=== PATIENT | female | born 1935 | race Caucasian/White ===

== ENCOUNTER → 2017-01-27 | Outpatient (CLI) | payer BC ==
[~2017-01-27] MED LIST: AMLO-110 PO; ASPI81TA28 PO; ATOR10TA82 PO; CARV12.52 PO; CITA40TA12 PO; CLOP1TAB15 PO; CPR500 PO; CYAN500T13 PO; DIPH-416 PO; LEVO100T7 PO; LSN20 PO; MAGN400T6 PO; MCRK20 PO; MTR500 PO; NTRGSL/4 UT; PANT40TA PO; TEMA15CA4 PO
== END | disposition home or self-care (01) ==
LOC: C.LABSPEC 12:10
PROVIDERS: ATTEND Physician Assistant
DX: R35.0 Frequency of micturition (principal)

== ENCOUNTER → 2017-02-02 | Outpatient (CLI) | payer BC ==
[2017-02-02 13:55] LABS: URINE APPEARANCE CLEAR (CLEAR); URINE BILIRUBIN NEG (NEG); URINE COLOR YELLOW; URINE EPITHELIAL CELL AUTO >30 /lpf (0-5); URINE NITRITE NEG (NEG); URINE SPECIFIC GRAVITY 1.014 (1.000-1.030); UROBILINOGEN NEG (NEG); ZZUR CULT IF INDIC CLEAN CATCH YES
[2017-02-02 14:10] LABS: MANUAL MICROSCOPIC REQUIRED? NO; REVIEW REQ? YES
== END | disposition home or self-care (01) ==
LOC: C.LABSPEC 11:55
PROVIDERS: ATTEND Physician Assistant
DX: N39.0 Urinary tract infection, site not specified (principal)

== ENCOUNTER → 2017-09-18 | Outpatient (CLI) | payer BC ==
[2017-09-18 18:00] LABS: BASO % 0.9 %; BASO ABS # 0.07 K/uL (0-0.2); COMPLETE YES; EOS % 2.8 %; HEMATOCRIT 33.4 % (37-47); IG% 0.1 %; LYMPH % 31.1 %; LYMPH ABS # 2.41 K/uL (1.2-3.4); MEAN CELL VOLUME 86.3 fL (80-100); MEAN CORPUSCULAR HEMOGLOBIN 27.9 pg (25-34); MEAN CORPUSCULAR HGB CONC 32.3 g/dl (32-36); MEAN PLATELET VOLUME 10.7 fL (7.4-10.4); MONO % 10.1 %; PLATELET COUNT 312 K/uL (130-400); RED BLOOD COUNT 3.87 M/uL (4.2-5.4); WHITE BLOOD COUNT 7.75 K/uL (4.8-10.8)
[2017-09-18 18:22] LABS: BLOOD UREA NITROGEN 25 mg/dl (7-18); BUN/CREATININE RATIO 16.3 (10-20); CALCIUM 8.7 mg/dl (8.5-10.1); CARBON DIOXIDE 27 mmol/L (21-32); CHLORIDE 102 mmol/L (98-107); CREATININE 1.53 mg/dl (0.60-1.20); GLUCOSE 87 mg/dl (70-99); POTASSIUM 3.9 mmol/L (3.5-5.1); SODIUM 138 mmol/L (136-145)
== END | disposition home or self-care (01) ==
LOC: C.LAB1850 16:43
PROVIDERS: ATTEND Internal Medicine
DX: I10 Essential (primary) hypertension (principal); D64.9 Anemia, unspecified

== ENCOUNTER → 2017-10-24 | Outpatient (CLI) | payer BC ==
[~2017-10-24] MED LIST changes: -AMLO-110 PO; +AMLO5TAB3 PO; +LISI-726 PO; -LSN20 PO
[2017-10-24 16:33] LABS: HEMATOCRIT 34.8 % (37-47); HEMOGLOBIN 11.3 g/dL (12.0-16.0); MEAN CELL VOLUME 85.9 fL (80-100); MEAN CORPUSCULAR HEMOGLOBIN 27.9 pg (25-34); MEAN CORPUSCULAR HGB CONC 32.5 g/dl (32-36); MEAN PLATELET VOLUME 10.1 fL (7.4-10.4); PLATELET COUNT 352 K/uL (130-400); RED CELL DISTRIBUTION WIDTH CV 15.4 % (11.5-14.5); RED CELL DISTRIBUTION WIDTH SD 48.5 fL (36.4-46.3); WHITE BLOOD COUNT 6.77 K/uL (4.8-10.8)
[2017-10-24 19:40] LABS: BLOOD UREA NITROGEN 33 mg/dl (7-18); CALCIUM 8.8 mg/dl (8.5-10.1); CARBON DIOXIDE 26 mmol/L (21-32); CREATININE 2.21 mg/dl (0.60-1.20); GLUCOSE 94 mg/dl (70-99); POTASSIUM 4.4 mmol/L (3.5-5.1); SODIUM 140 mmol/L (136-145)
== END | disposition home or self-care (01) ==
LOC: C.LAB1850 14:50
PROVIDERS: ATTEND Internal Medicine
DX: E05.90 Thyrotoxicosis, unspecified without thyrotoxic crisis or storm (principal); I10 Essential (primary) hypertension; D64.9 Anemia, unspecified

== ENCOUNTER → 2017-11-14 | Outpatient (CLI) | payer BC ==
[~2017-11-14] MED LIST changes: +AMLO-110 PO; -AMLO5TAB3 PO; -LISI-726 PO; +LSN20 PO
[2017-11-14 16:39] LABS: BLOOD UREA NITROGEN 29 mg/dl (7-18); CALCIUM 8.9 mg/dl (8.5-10.1); CARBON DIOXIDE 27 mmol/L (21-32); CREATININE 1.88 mg/dl (0.60-1.20); GLUCOSE 111 mg/dl (70-99); POTASSIUM 4.5 mmol/L (3.5-5.1); SODIUM 137 mmol/L (136-145)
== END | disposition home or self-care (01) ==
LOC: C.LAB1850 15:07
PROVIDERS: ATTEND Internal Medicine
DX: E05.90 Thyrotoxicosis, unspecified without thyrotoxic crisis or storm (principal)

== ENCOUNTER → 2017-11-15 | Outpatient (CLI) | payer BC ==
[2017-11-15 13:26] LABS: HEMATOCRIT 34.4 % (37-47); HEMOGLOBIN 11.2 g/dL (12.0-16.0); MEAN CELL VOLUME 85.4 fL (80-100); MEAN CORPUSCULAR HEMOGLOBIN 27.8 pg (25-34); MEAN CORPUSCULAR HGB CONC 32.6 g/dl (32-36); MEAN PLATELET VOLUME 10.4 fL (7.4-10.4); PLATELET COUNT 320 K/uL (130-400); RED CELL DISTRIBUTION WIDTH CV 15.2 % (11.5-14.5); RED CELL DISTRIBUTION WIDTH SD 47.4 fL (36.4-46.3); WHITE BLOOD COUNT 6.18 K/uL (4.8-10.8)
== END | disposition home or self-care (01) ==
LOC: C.LABBC 11:02
PROVIDERS: ATTEND Internal Medicine
DX: N39.0 Urinary tract infection, site not specified (principal); N20.0 Calculus of kidney; D64.9 Anemia, unspecified

== ENCOUNTER 2018-01-08 15:25 | Emergency (ER) | payer BC ==
[~2018-01-08] VITALS: Ht 152.4 cm; Wt 48.9 kg
[2018-01-08 15:37] VITALS: Ht 152.4 cm; Wt 48.9 kg
[2018-01-08 16:04] VITALS: O2SAT 98
[2018-01-08 16:12] LABS: BASO % 0.9 %; BASO ABS # 0.07 K/uL (0-0.2); EOS % 2.5 %; HEMATOCRIT 38.1 % (37-47); HEMOGLOBIN 12.5 g/dL (12.0-16.0); IG# 0.01 K/uL (0.00-0.02); LYMPH % 28.9 %; LYMPH ABS # 2.27 K/uL (1.2-3.4); MEAN CELL VOLUME 83.9 fL (80-100); MEAN CORPUSCULAR HEMOGLOBIN 27.5 pg (25-34); MEAN CORPUSCULAR HGB CONC 32.8 g/dl (32-36); MEAN PLATELET VOLUME 10.2 fL (7.4-10.4); MONO % 10.2 %; NEUT % 57.4 %; NEUT ABS # 4.51 K/uL (1.4-6.5); PLATELET COUNT 348 K/uL (130-400); RED CELL DISTRIBUTION WIDTH CV 14.9 % (11.5-14.5); RED CELL DISTRIBUTION WIDTH SD 45.7 fL (36.4-46.3); WHITE BLOOD COUNT 7.86 K/uL (4.8-10.8)
[2018-01-08 16:22] LABS: PTT PATIENT 23.1 SECONDS (21.0-31.0)
--- NOTE | 2018-01-08 16:24 | DIAGNOSTIC IMAGING REPORT ---
CHEST ONE VIEW PORTABLE CLINICAL HISTORY: Weakness COMPARISON STUDY: 07/28/2016 FINDINGS: The heart is normal in size. There is a left subclavian dual-chamber central venous pacemaker present. There is no failure. There is a nonspecific 11 mm left midlung zone opacity. Radiographic follow-up is recommended. There are no pleural effusions. There is no lobar consolidation.[ IMPRESSION: 1. Nonspecific 11 mm left midlung zone opacity. Further workup is advocated. Electronically signed by: Tom Rene M.D. 01/08/2018 4:23 PM Dictated Date/Time: 01/08/2018 4:21 PM
[2018-01-08 16:32] LABS: ALBUMIN 4.3 gm/dl (3.4-5.0); ALT/SGPT 17 U/L (12-78); BLOOD UREA NITROGEN 23 mg/dl (7-18); CALCIUM 9.3 mg/dl (8.5-10.1); CARBON DIOXIDE 27 mmol/L (21-32); GLUCOSE 97 mg/dl (70-99); LIPASE 135 U/L (73-393); POTASSIUM 3.9 mmol/L (3.5-5.1); SODIUM 138 mmol/L (136-145)
[2018-01-08 16:41] LABS: ALKALINE PHOSPHATASE 111 U/L (45-117); AST/SGOT 19 U/L (15-37); CKMB 0.6 ng/ml (0.5-3.6); TOTAL PROTEIN 8.1 gm/dl (6.4-8.2)
--- NOTE | 2018-01-08 18:02 | DIAGNOSTIC IMAGING REPORT ---
CT HEAD WITHOUT CONTRAST (CT) CLINICAL HISTORY: Dizziness, hypertension. COMPARISON STUDY: No previous studies for comparison. TECHNIQUE: Axial CT of the brain is performed from the vertex to the skull base. IV contrast was not administered for this examination. A dose lowering technique was utilized adhering to the principles of ALARA. CT DOSE: 638.56 mGycm FINDINGS: No intra or extra-axial mass lesions are visualized. There is no CT evidence of acute cortical infarction. There is no evidence of midline shift. There is no acute hemorrhage. No calvarial fractures are visualized. There are patchy white matter hypodensities likely on a small vessel basis. There is evidence of a prior left basal ganglia infarct with extension to the left centrum semiovale. There is no evidence of pathologic ventricular dilatation. There is no evidence of acute sinusitis IMPRESSION: 1. Evidence for prior left basal ganglia infarct with extension to the left centrum semiovale 2. No evidence of intracranial mass. No evidence of acute hemorrhage. Electronically signed by: Tom Rene M.D. 01/08/2018 6:01 PM Dictated Date/Time: 01/08/2018 5:59 PM
--- NOTE | 2018-01-08 18:15 | DIAGNOSTIC IMAGING REPORT ---
(CHEST) THORAX WITHOUT CT DOSE: 574.94 mGycm CLINICAL HISTORY: 82 years-old Female with dizziness, HTN, L lung opacity on cxr. Acute dizziness. 11 mm left midlung opacity described on chest radiograph of same day. TECHNIQUE: Multiaxial CT images of the chest were performed without contrast. A dose lowering technique was utilized adhering to the principles of ALARA. COMPARISON: Chest radiograph of same day, CT abdomen and pelvis 07/17/2016 and 08/19/2016. FINDINGS: Heart is normal in size without pericardial effusion. Left pectoral pacer is noted with leads overlying the right atrium and right ventricle. Coronary arterial disease. Calcifications are also noted within the aortic annulus. Extensive calcification of the thoracic aorta. There is fusiform dilation of the ascending thoracic aorta beginning distal to the sinotubular junction, 4.1 x 4.0 cm in AP and transverse dimension. Additionally, there is mild dilation of the main pulmonary artery, 3.1 cm which may reflect pulmonary arterial hypertension within the appropriate clinical setting. No dominant thyroid nodule. Mildly prominent 8 mm subcarinal lymph node is nonspecific. No pathologic adenopathy. The lungs are hyperinflated without pneumothorax or pleural effusion. Moderate left Bochdalek hernia. The previously described focal opacity of the left midlung correlates with a 2.2 x 0.5 cm linear pleural-based consolidation of the left lower lobe, image 164 series 4 suggesting an area of pleural-parenchymal scarring. Additional areas of pleural-parenchymal scarring or atelectasis involves the inferior segment lingula and right middle lobe. Multifocal tree-in-bud nodules are again noted within the lungs bilaterally within a bibasilar predominant distribution, improved from comparison CT abdomen and pelvis studies suggesting infectious or inflammatory bronchiolitis. There is a 5 mm nodule of the lateral basal segment left lower lobe, image 192 of series 4. There is a 5 mm solid nodule of the right upper lobe, image 92 series 4. 5 mm nodule of the right middle lobe is also seen. Thin-walled 12 mm cyst is seen within the right upper lobe. There are calcifications of the tracheobronchial tree. No lobar airspace consolidation. IVC filter is noted within an infrarenal location. Low attenuating lesions of the kidneys bilaterally suggest renal cysts. Punctate nonobstructing calculus of the superior pole left kidney. Soft tissues are unremarkable. Remote appearing compression deformity of the L1 vertebral body with prior kyphoplasty at T12.. Partially imaged fusion hardware of the lumbar spine. IMPRESSION: 1. Focal opacity of the left midlung correlates with a 2.2 cm linear pleural-based consolidative density of the left lower lobe suggesting an area of pleural-parenchymal scarring. 2. Innumerable tree-in-bud nodules throughout the bilateral lungs in a bibasilar predominant distribution appear similar to mildly improved from comparison CT abdomen and pelvis 08/19/2016 compatible with infectious or inflammatory bronchiolitis. 3. Scattered pulmonary nodules are noted measuring up to 5 mm, likely on an infectious or inflammatory basis. 4. No lobar airspace consolidation to suggest pneumonia. 5. Mild fusiform dilation of the ascending thoracic aorta, 4.1 x 4.0 cm. Please refer to below summary of Fleischner criteria recommendations for follow-up of incidental CT nodules (Steve Diamond, Guidelines for management of small pulmonary nodules detected on CT scans: A statement from the Fleischner Society, Radiology 237: [id number].) SOLID NODULES Multiple nodules size: <6 mm * Low risk patients: no routine follow-up * high risk patients: optional CT at 12 months Note: newly detected indeterminate nodule in persons 35 years of age or older. * Low risk patients: minimal or absent history of smoking and/or other known risk factors * high risk patients: history of smoking or of other known risk factors (e.g. first degree relative with lung cancer, or exposure to asbestos, radon, uranium) * if a nodule up to 8 mm is partly solid or is ground glass further follow-up is required after 24 months to exclude possible slow growing adenocarcinoma ([place]) The above report was generated using voice recognition software. It may contain grammatical, syntax or spelling errors. Electronically signed by: Watson Correia M.D. 01/08/2018 6:13 PM Dictated Date/Time: 01/08/2018 6:02 PM
--- NOTE | 2018-01-08 19:26 | EMERGENCY ROOM VISIT NOTE ---
History Report prepared by Riley: Kishore Gilmore Under the Supervision of: Dr. Bharath Mc M.D. First contact with patient: 15:45 Chief Complaint: HYPERTENSION Stated Complaint: HIGH BP 188/? AND LOW 80/40 History of Present Illness The patient is an 82 year old female who presents to the Emergency Room with complaints of fluctuating blood pressure for the past week. The patient states that her blood pressure has gotten up to 180 and has gone down to 80. She reports that it has been high today. She states that she has been having a headache, nausea, dizziness, and shortness of breath. She notes that she gets weak when her blood pressure goes low. The patient states that her blood pressure is better with laying down and worse with walking around and exertion. She reports that she called her PCP this morning, and they told her to come to the ED for evaluation. The patient notes that she has been having some chills, and her appetite has not been very good recently. She has a history of a pacemaker placement, and she states that she has had a stroke 5-6 years ago. Pt denies LOC, fevers, cough, diaphoresis, visual changes, neck pain, chest pain, vomiting, abdominal pain, back pain, arm pain, leg pain, melena, hematochezia, urinary symptoms, numbness, lymphadenopathy, rash, or other complaints. Source of History: patient Onset: the past week Quality: other (fluctuating blood pressure) Timing: other (fluctuating) Modifying Factors (Worsening): exertion, other (walking around) Modifying Factors (Relieving): other (laying down) Associated Symptoms: + chills, + headache, + SOB, + nausea Note: Associated symptoms: Dizziness and appetite has not been very good recently Review of Systems See HPI for pertinent positives and negatives. A total of ten systems were reviewed and were otherwise negative. Past Medical & Surgical Medical Problems: (1) A-fib (2) Abdominal pain (3) ALBERTA (acute kidney injury) (4) Crohn's disease (5) Hypertension (6) Stroke Social History Smoking Status: Never Smoker Alcohol Use: occasionally Drug Use: none Marital Status: Housing Status: lives with family Occupation Status: retired Current/Historical Medications Scheduled Amlodipine (Norvasc), 5 MG PO QAM Aspirin (Aspirin Ec), 81 MG PO QAM Atorvastatin (Lipitor), 10 MG PO QPM Carvedilol (Coreg), 12.5 MG PO BIDM Ciprofloxacin (Ciprofloxacin HCl), 500 MG PO DAILY Citalopram Hydrobromide (Celexa), 40 MG PO QAM Clopidogrel (Plavix), 75 MG PO QAM Cyanocobalamin (Vitamin B12 500MCG), 500 MCG PO DAILY Levothyroxine Sodium (Levothyroxine Sodium), 100 MCG PO QAM Lisinopril (Lisinopril), 20 MG PO QAM Magnesium Oxide (Mag-Ox), 400 MG PO QAM Pantoprazole (Protonix), 40 MG PO QAM Potassium Chloride (Klor-Con M20), 20 MEQ PO QAM Scheduled PRN Diphenoxylate/Atropine (Lomotil), 1 TAB PO DIRECTED PRN for Diarrhea Nitroglycerin (Nitrostat), 0.4 MG UT PRN PRN for Chest Pain Temazepam (Restoril), 15 MG PO HS PRN for Sleep Allergies Coded Allergies: Sulfa Antibiotics (Unverified Allergy, Unknown, ., 01/08/18) Unclassified Drugs (Verified Allergy, Unknown, ANESTHESIA, 07/17/16) Physical Exam Vital Signs Date Time Temp Pulse Resp B/P (MAP) Pulse Ox O2 Delivery O2 Flow Rate FiO2 01/08/18 20:08 36.3 89 22 160/86 95 01/08/18 19:26 160/86 95 Room Air 01/08/18 18:43 77 171/83 76 166/7 89 145/72 01/08/18 17:43 76 01/08/18 17:23 70 22 165/74 95 Room Air 01/08/18 16:05 70 22 180/154 99 Room Air 01/08/18 16:04 98 Room Air 01/08/18 15:37 36.3 79 20 174/96 96 Room Air Physical Exam GENERAL: Awake, alert, uncomfortable-appearing, in no distress HENT: Normocephalic, atraumatic. Oropharynx unremarkable. EYES: Normal conjunctiva. Sclera non-icteric. NECK: Supple. No nuchal rigidity. FROM. No masses. RESPIRATORY: Clear to auscultation. No wheezes. No rales. Normal respiratory effort. CARDIAC: Systolic ejection murmur. Normal rate. Normal rhythm. No rubs. Extremities warm and well perfused. Pulses equal. No JVD. GI: Soft, non-distended. No tenderness to palpation. No rebound or guarding. No masses. RECTAL: Deferred. MUSCULOSKELETAL: Atraumatic. Chest examination reveals no tenderness. The back is symmetrical on inspection without obvious abnormality. There is no CVA tenderness to palpation. No joint edema. LOWER EXTREMITIES: Calves are equal size bilaterally and non-tender. No edema. No discoloration. NEURO: Normal sensorium. No sensory or motor deficits noted. SKIN: No rash or jaundice noted. Medical Decision & Procedures ER Provider Diagnostic Interpretation: Radiology results as stated below per my review and radiologist interpretation: CHEST ONE VIEW PORTABLE CLINICAL HISTORY: Weakness COMPARISON STUDY: 07/28/2016 FINDINGS: The heart is normal in size. There is a left subclavian dual-chamber central venous pacemaker present. There is no failure. There is a nonspecific 11 mm left midlung zone opacity. Radiographic follow-up is recommended. There are no pleural effusions. There is no lobar consolidation.[ IMPRESSION: 1. Nonspecific 11 mm left midlung zone opacity. Further workup is advocated. Electronically signed by: Tom Rene M.D. 01/08/2018 4:23 PM Dictated Date/Time: 01/08/2018 4:[address] HEAD WITHOUT CONTRAST (CT) CLINICAL HISTORY: Dizziness, hypertension. COMPARISON STUDY: No previous studies for comparison. TECHNIQUE: Axial CT of the brain is performed from the vertex to the skull base. IV contrast was not administered for this examination. A dose lowering technique was utilized adhering to the principles of ALARA. CT DOSE: 638.56 mGycm FINDINGS: No intra or extra-axial mass lesions are visualized. There is no CT evidence of acute cortical infarction. There is no evidence of midline shift. There is no acute hemorrhage. No calvarial fractures are visualized. There are patchy white matter hypodensities likely on a small vessel basis. There is evidence of a prior left basal ganglia infarct with extension to the left centrum semiovale. There is no evidence of pathologic ventricular dilatation. There is no evidence of acute sinusitis IMPRESSION: 1. Evidence for prior left basal ganglia infarct with extension to the left centrum semiovale 2. No evidence of intracranial mass. No evidence of acute hemorrhage. Electronically signed by: Tom Rene M.D. 01/08/2018 6:01 PM Dictated Date/Time: 01/08/2018 5:59 PM (CHEST) THORAX WITHOUT CT DOSE: 574.94 mGycm CLINICAL HISTORY: 82 years-old Female with dizziness, HTN, L lung opacity on cxr. Acute dizziness. 11 mm left midlung opacity described on chest radiograph of same day. TECHNIQUE: Multiaxial CT images of the chest were performed without contrast. A dose lowering technique was utilized adhering to the principles of ALARA. COMPARISON: Chest radiograph of same day, CT abdomen and pelvis 07/17/2016 and 08/19/2016. FINDINGS: Heart is normal in size without pericardial effusion. Left pectoral pacer is noted with leads overlying the right atrium and right ventricle. Coronary arterial disease. Calcifications are also noted within the aortic annulus. Extensive calcification of the thoracic aorta. There is fusiform dilation of the ascending thoracic aorta beginning distal to the sinotubular junction, 4.1 x 4.0 cm in AP and transverse dimension. Additionally, there is mild dilation of the main pulmonary artery, 3.1 cm which may reflect pulmonary arterial hypertension within the appropriate clinical setting. No dominant thyroid nodule. Mildly prominent 8 mm subcarinal lymph node is nonspecific. No pathologic adenopathy. The lungs are hyperinflated without pneumothorax or pleural effusion. Moderate left Bochdalek hernia. The previously described focal opacity of the left midlung correlates with a 2.2 x 0.5 cm linear pleural-based consolidation of the left lower lobe, image 164 series 4 suggesting an area of pleural-parenchymal scarring. Additional areas of pleural-parenchymal scarring or atelectasis involves the inferior segment lingula and right middle lobe. Multifocal tree-in-bud nodules are again noted within the lungs bilaterally within a bibasilar predominant distribution, improved from comparison CT abdomen and pelvis studies suggesting infectious or inflammatory bronchiolitis. There is a 5 mm nodule of the lateral basal segment left lower lobe, image 192 of series 4. There is a 5 mm solid nodule of the right upper lobe, image 92 series 4. 5 mm nodule of the right middle lobe is also seen. Thin-walled 12 mm cyst is seen within the right upper lobe. There are calcifications of the tracheobronchial tree. No lobar airspace consolidation. IVC filter is noted within an infrarenal location. Low attenuating lesions of the kidneys bilaterally suggest renal cysts. Punctate nonobstructing calculus of the superior pole left kidney. Soft tissues are unremarkable. Remote appearing compression deformity of the L1 vertebral body with prior kyphoplasty at T12.. Partially imaged fusion hardware of the lumbar spine. IMPRESSION: 1. Focal opacity of the left midlung correlates with a 2.2 cm linear pleural-based consolidative density of the left lower lobe suggesting an area of pleural-parenchymal scarring. 2. Innumerable tree-in-bud nodules throughout the bilateral lungs in a bibasilar predominant distribution appear similar to mildly improved from comparison CT abdomen and pelvis 08/19/2016 compatible with infectious or inflammatory bronchiolitis. 3. Scattered pulmonary nodules are noted measuring up to 5 mm, likely on an infectious or inflammatory basis. 4. No lobar airspace consolidation to suggest pneumonia. 5. Mild fusiform dilation of the ascending thoracic aorta, 4.1 x 4.0 cm. Please refer to below summary of Fleischner criteria recommendations for follow-up of incidental CT nodules (Steve Diamond, Guidelines for management of small pulmonary nodules detected on CT scans: A statement from the Fleischner Society, Radiology 237: [phone].) SOLID NODULES Multiple nodules size: <6 mm * Low risk patients: no routine follow-up * high risk patients: optional CT at 12 months Note: newly detected indeterminate nodule in persons 35 years of age or older. * Low risk patients: minimal or absent history of smoking and/or other known risk factors * high risk patients: history of smoking or of other known risk factors (e.g. first degree relative with lung cancer, or exposure to asbestos, radon, uranium) * if a nodule up to 8 mm is partly solid or is ground glass further follow-up is required after 24 months to exclude possible slow growing adenocarcinoma (EKATERINA) The above report was generated using voice recognition software. It may contain grammatical, syntax or spelling errors. Electronically signed by: Watson Correia M.D. 01/08/2018 6:13 PM Dictated Date/Time: 01/08/2018 6:02 PM Laboratory Results 01/08/18 15:50 Red Blood Count 4.54, Mean Corpuscular Volume 83.9, Mean Corpuscular Hemoglobin 27.5, Mean Corpuscular Hemoglobin Concent 32.8, Mean Platelet Volume 10.2, Neutrophils (%) (Auto) 57.4, Lymphocytes (%) (Auto) 28.9, Monocytes (%) (Auto) 10.2, Eosinophils (%) (Auto) 2.5, Basophils (%) (Auto) 0.9, Neutrophils # (Auto ) 4.51, Lymphocytes # (Auto) 2.27, Monocytes # (Auto) 0.80, Eosinophils # (Auto ) 0.20, Basophils # (Auto) 0.07 01/08/18 15:50 Test 01/08/18 15:50 01/08/18 17:00 White Blood Count 7.86 K/uL (4.8-10.8) Red Blood Count 4.54 M/uL (4.2-5.4) Hemoglobin 12.5 g/dL (12.0-16.0) Hematocrit 38.1 % (37-47) Mean Corpuscular Volume 83.9 fL (80-100) Mean Corpuscular Hemoglobin 27.5 pg (25-34) Mean Corpuscular Hemoglobin Concent 32.8 g/dl (32-36) Platelet Count 348 K/uL (130-400) Mean Platelet Volume 10.2 fL (7.4-10.4) Neutrophils (%) (Auto) 57.4 % Lymphocytes (%) (Auto) 28.9 % Monocytes (%) (Auto) 10.2 % Eosinophils (%) (Auto) 2.5 % Basophils (%) (Auto) 0.9 % Neutrophils # (Auto) 4.51 K/uL (1.4-6.5) Lymphocytes # (Auto) 2.27 K/uL (1.2-3.4) Monocytes # (Auto) 0.80 K/uL (0.11-0.59) Eosinophils # (Auto) 0.20 K/uL (0-0.5) Basophils # (Auto) 0.07 K/uL (0-0.2) RDW Standard Deviation 45.7 fL (36.4-46.3) RDW Coefficient of Variation 14.9 % (11.5-14.5) Immature Granulocyte % (Auto) 0.1 % Immature Granulocyte # (Auto) 0.01 K/uL (0.00-0.02) Prothrombin Time 10.1 SECONDS (9.0-12.0) Prothromb Time International Ratio 1.0 (0.9-1.1) Activated Partial Thromboplast Time 23.1 SECONDS (21.0-31.0) Partial Thromboplastin Ratio 0.9 Anion Gap 7.0 mmol/L (3-11) Est Creatinine Clear Calc Drug Dose 20.8 ml/min Estimated GFR () 37.2 Estimated GFR (Non- 32.1 BUN/Creatinine Ratio 15.0 (10-20) Calcium Level 9.3 mg/dl (8.5-10.1) Magnesium Level 1.9 mg/dl (1.8-2.4) Total Bilirubin 0.4 mg/dl (0.2-1) Direct Bilirubin < 0.1 mg/dl (0-0.2) Aspartate Amino Transf (AST/SGOT) 19 U/L (15-37) Alanine Aminotransferase (ALT/SGPT) 17 U/L (12-78) Alkaline Phosphatase 111 U/L (45-117) Total Creatine Kinase 56 U/L (26-192) Creatine Kinase MB 0.6 ng/ml (0.5-3.6) Creatine Kinase MB Ratio 1.1 (0-3.0) Troponin I < 0.015 ng/ml (0-0.045) Total Protein 8.1 gm/dl (6.4-8.2) Albumin 4.3 gm/dl (3.4-5.0) Lipase 135 U/L (73-393) Thyroid Stimulating Hormone (TSH) 0.126 uIu/ml (0.300-4.500) Urine Color YELLOW Urine Appearance CLEAR (CLEAR) Urine pH 7.5 (4.5-7.5) Urine Specific Fleming 1.007 (1.000-1.030) Urine Protein NEG (NEG) Urine Glucose (UA) NEG (NEG) Urine Ketones NEG (NEG) Urine Occult Blood NEG (NEG) Urine Nitrite NEG (NEG) Urine Bilirubin NEG (NEG) Urine Urobilinogen NEG (NEG) Urine Leukocyte Esterase TRACE (NEG) Urine WBC (Auto) 1-5 /hpf (0-5) Urine RBC (Auto) 0-4 /hpf (0-4) Urine Hyaline Casts (Auto) 0 /lpf (0-5) Urine Epithelial Cells (Auto) 5-10 /lpf (0-5) Urine Bacteria (Auto) NEG (NEG) Laboratory results reviewed by me ECG Per My Interpretation Indication: SOB/dyspnea Rate (beats per minute): 81 Rhythm: normal sinus Findings: Q waves (Septal), left axis deviation Comparison ECG Date: 07/17/16 Change: Non-specific T wave abnormality is resolved. ED Course 1545: The patient was evaluated in room B10. A complete history and physical exam was performed. 1728: I reevaluated the patient, and she is feeling a little better. 1934: I reevaluated the patient, and she does not want to stay in the hospital. She feels well. I advised her to follow up with her PCP tomorrow as her blood pressure was high, and as she did not have a recorded low blood pressure, she is not going to have a change in her medications. Medical Decision Prior records/ancillary studies reviewed regarding the history above. Triage Nursing notes reviewed and agree them. The patient's history was concerning for hypertension. Differential diagnosis: Etiologies such as orthostasis, medication issues, infection, electrolyte abnormality, hypertensive urgency, hypertensive emergency, benign hypertension, cardiovascular pathology, pheochromocytoma, electrolyte abnormality, renal disease, endorgan damage, as well as others were entertained. Physical examination: As above. ER treatment provided: No medication given. Patient was observed. She is not orthostatic. She is moderately hypertensive. On reassessment the patient felt better. Diagnostic interpretation by me: The electrocardiogram was negative for pathologic change. The labs revealed an unremarkable CBC and chemistry panel. Urinalysis negative. Cardiac markers negative. Imaging studies: Chest x-ray and CT scans as above Patient does not have any active pulmonary symptoms at this time. She has no cough or fever. She was referred back to her primary physician for further management. She states that both her primary physician and her compensation and benefits administrator have been managing her blood pressure medications. They have been making changes based upon her outpatient measurements. She did not have any hypotensive measurements here. She feels well. This is been going on for many days. The patient does not want to be admitted to the hospital. She wants to go home. I did offer. Since she is doing relatively well I did advise her to contact her primary physician first thing tomorrow. If there is any difficulty with follow-up she should contact the emergency department for further assistance through our behavioral health case manager. I gave my usual and customary discussion regarding this issue. By the evaluation outlined above other emergent etiologies such as those listed in the differential, as well as others, were deemed relatively unlikely. The patient was educated about the findings as listed above. All questions were answered and the patient was pleased with the treatment. Return instructions were outlined and the patient was discharged in stable condition. The patient was referred to her PCP tomorrow for follow-up for a recheck of the current condition. Medication Reconcilliation Current Medication List: was personally reviewed by me Blood Pressure Screening Patient's blood pressure: Elevated blood pressure Blood pressure disposition: Referred to PCP Impression Primary Impression: Hypertension Scribe Attestation The scribe's documentation has been prepared under my direction and personally reviewed by me in its entirety. I confirm that the note above accurately reflects all work, treatment, procedures, and medical decision making performed by me. Departure Information Dispostion Home / Self-Care Referrals Jason Pike M.D. (PCP) Forms HOME CARE DOCUMENTATION FORM, IMPORTANT VISIT INFORMATION, WORK / SCHOOL INSTRUCTIONS Patient Instructions [facility] Additional Instructions Follow-up with Dr. Pike's office tomorrow. If you are unable to get an appointment by calling his office tomorrow at 8 AM call back to the emergency department at [phone] for assistance with our case coordinator. Continue your current blood pressure medications. Return to the ER for headache, chest pain, passing out, difficulty breathing, fevers, numbness, tingling, worsening of your condition, or as needed.
[2018-01-08 20:08] VITALS: BP 160/86; PULSE 89; TEMP 36.3; O2SAT 95
== END 2018-01-08 20:09 | disposition home or self-care (01) ==
LOC: C.EDB 15:27
DX: I10 Essential (primary) hypertension (principal); Z95.0 Presence of cardiac pacemaker; Z86.73 Personal history of transient ischemic attack (TIA), and cerebral infarction without residual deficits; I48.91 Unspecified atrial fibrillation; K50.90 Crohn's disease, unspecified, without complications; Z79.82 Long term (current) use of aspirin; Z79.02 Long term (current) use of antithrombotics/antiplatelets; Z79.899 Other long term (current) drug therapy; Z88.2 Allergy status to sulfonamides; Z88.8 Allergy status to other drugs, medicaments and biological substances

== ENCOUNTER → 2018-01-12 | Outpatient (CLI) | payer BC ==
[~2018-01-12] MED LIST changes: -MTR500 PO
[2018-01-12 12:28] LABS: ALBUMIN 3.7 gm/dl (3.4-5.0); BLOOD UREA NITROGEN 20 mg/dl (7-18); CALCIUM 8.8 mg/dl (8.5-10.1); CARBON DIOXIDE 27 mmol/L (21-32); CREATININE 1.61 mg/dl (0.60-1.20); GLUCOSE 124 mg/dl (70-99); POTASSIUM 4.2 mmol/L (3.5-5.1); SODIUM 140 mmol/L (136-145)
[2018-01-12 12:39] LABS: PHOSPHORUS 3.3 mg/dl (2.5-4.9)
== END | disposition home or self-care (01) ==
LOC: C.LAB1850 10:59
PROVIDERS: ATTEND Internal Medicine Nephrology
DX: R06.02 Shortness of breath (principal); E03.9 Hypothyroidism, unspecified; I10 Essential (primary) hypertension; R79.89 Other specified abnormal findings of blood chemistry; R79.1 Abnormal coagulation profile

== ENCOUNTER → 2018-01-12 | Outpatient (CLI) | payer BC ==
--- NOTE | 2018-01-12 19:44 | DIAGNOSTIC IMAGING REPORT ---
CHEST 2 VIEWS ROUTINE CLINICAL HISTORY: 82 years-old Female presenting with ELEVATED D-DIMER. TECHNIQUE: PA and lateral views of the chest were obtained. COMPARISON: 01/08/2018. FINDINGS: Left subclavian pacer with leads to the right atrium and right ventricular apex. Atherosclerosis of the aortic arch. Cardiac silhouette normal in size. Lungs hyperinflated. No focal opacity. No large effusion or pneumothorax. Osteopenia. Kyphoplasty changes in a lower thoracic vertebral body, likely T12. Additionally, compression deformity of L1, as seen on recent CT from 01/08/2018. Partially visualized posterior lumbar fusion hardware. IVC filter. IMPRESSION: 1. No focal infiltrate. The previously noted infiltrate in the left midlung is not visualized. 2. Hyperinflation. Electronically signed by: Hitesh Lino M.D. 01/12/2018 7:43 PM Dictated Date/Time: 01/12/2018 7:40 PM
--- NOTE | 2018-01-12 19:56 | DIAGNOSTIC IMAGING REPORT ---
LUNG IMAGING VQ CLINICAL HISTORY: 82 years-old Female presenting with R06.02 SOB (shortness of breath)rule out PE High D Dimer. TECHNIQUE: Immediately following the inhalation of 33 mCi of technetium 99 M DTPA for the ventilation scan and the intravenous administration of 5.4 mCi of technetium 99 M MAA for the perfusion scan, anterior, oblique, lateral, and posterior views of the chest were obtained. Modified PIOPED II criteria were utilized for assessment. COMPARISON: Chest x-ray performed the same day. FINDINGS: Matched defect of the inferior lingula (segment 14). Matched defect of the anterior medial basal left lower lobe. Matched defect in left than 50% of posterior basal segment of the right lower lobe (segment 8). Approximately 25% matched defects in the superior segment of the left lower lobe (segment 15) and the superior segment of the right lower lobe (segment 6). Heterogeneity of ventilation matches the perfusion defects as detailed above. Radiotracer accumulation in the region of the stomach from ingestion. Reference: Modified PIOPED II criteria Normal: No perfusion defects. Very low likelihood ratio: Nonsegmental, perfusion defect < chest x-ray lesion, 1-3 small segmental defects, solitary triple matched defect (< or = 1 segment) in mid or upper lung, stripe sign, solitary large pleural effusion, > or = to 2 matched defects with regionally normal chest x-ray. High likelihood ratio: > or = 2 large mismatch segmental defects. Nondiagnostic: All other findings. IMPRESSION: Very low likelihood for pulmonary embolus. Suspected underlying chronic lung disease given the heterogeneity of parenchyma. Electronically signed by: Hitesh Lino M.D. 01/12/2018 7:55 PM Dictated Date/Time: 01/12/2018 7:47 PM
== END | disposition home or self-care (01) ==
LOC: C.NUCL 18:02
PROVIDERS: ATTEND Internal Medicine Pulmonary Disease
DX: R79.89 Other specified abnormal findings of blood chemistry (principal); R06.02 Shortness of breath; R79.1 Abnormal coagulation profile

== ENCOUNTER → 2018-06-06 | Outpatient (CLI) | payer BC ==
[~2018-06-06] MED LIST changes: -AMLO-110 PO; +AMLO5TAB3 PO; +LISI-726 PO; -LSN20 PO
[2018-06-06 10:33] LABS: HEMATOCRIT 33.8 % (37-47); MEAN CELL VOLUME 84.1 fL (80-100); MEAN CORPUSCULAR HEMOGLOBIN 27.4 pg (25-34); MEAN CORPUSCULAR HGB CONC 32.5 g/dl (32-36); MEAN PLATELET VOLUME 10.3 fL (7.4-10.4); PLATELET COUNT 303 K/uL (130-400); RED CELL DISTRIBUTION WIDTH CV 15.5 % (11.5-14.5); RED CELL DISTRIBUTION WIDTH SD 48.1 fL (36.4-46.3); WHITE BLOOD COUNT 6.03 K/uL (4.8-10.8)
[2018-06-06 10:54] LABS: BLOOD UREA NITROGEN 27 mg/dl (7-18); CALCIUM 9.1 mg/dl (8.5-10.1); CARBON DIOXIDE 27 mmol/L (21-32); CREATININE 1.44 mg/dl (0.60-1.20); GLUCOSE 89 mg/dl (70-99); POTASSIUM 3.9 mmol/L (3.5-5.1); SODIUM 140 mmol/L (136-145)
== END | disposition home or self-care (01) ==
LOC: C.LABBC 08:36
PROVIDERS: ATTEND Internal Medicine
DX: E03.9 Hypothyroidism, unspecified (principal); I10 Essential (primary) hypertension; D64.9 Anemia, unspecified

== ENCOUNTER → 2018-06-07 | Outpatient (CLI) | payer BC ==
--- NOTE | 2018-06-07 10:07 | DIAGNOSTIC IMAGING REPORT ---
CHEST 2 VIEWS ROUTINE CLINICAL HISTORY: R06.02 SOB dyspnea COMPARISON STUDY: 01/12/2018 FINDINGS: Lungs are clear. Bipolar cardiac pacemaker in good position. Diaphragms smooth. Scattered pleural plaques unchanged. IMPRESSION: No acute process. The above report was generated using voice recognition software. It may contain grammatical, syntax or spelling errors. Electronically signed by: Elias Guardado M.D. 06/07/2018 10:06 AM Dictated Date/Time: 06/07/2018 10:05 AM
== END | disposition home or self-care (01) ==
LOC: C.RAD1850 09:39
PROVIDERS: ATTEND Internal Medicine
DX: R06.02 Shortness of breath (principal)

== ENCOUNTER 2019-03-03 22:48 | Inpatient (IN) ==
[2019-03-03 23:07] LABS: Basophils # (auto) 0.01 K/uL (0-0.2); Basophils % (auto) 0.1 %; Eosinophils # (auto) 0.16 K/uL (0-0.5); Eosinophils % (auto) 1.2 %; Hematocrit (blood only) 34.4 % (37-47); Hemoglobin 11.6 g/dL (12.0-16.0); Immature Granulocytes # (auto) 0.09 K/uL (0.00-0.02); Immature Granulocytes % (auto) 0.7 %; Lymphocytes # (auto) 2.27 K/uL (1.2-3.4); Lymphocytes % (auto) 16.7 %; Mean Corpuscular Hgb Conc 33.7 g/dL (32-36); Mean Corpuscular Volume 81.1 fL (80-100); Mean Platelet Volume 9.7 fL (7.4-10.4); Monocytes # (auto) 1.54 K/uL (0.11-0.59); Monocytes % (auto) 11.3 %; Neutrophils # (auto) 9.55 K/uL (1.4-6.5); Platelet Count 326 K/uL (130-400); RDW Coefficient of Variation 16.6 % (11.5-14.5); RDW Standard Deviation 49.9 fL (36.4-46.3); Red Blood Count 4.24 M/uL (4.2-5.4); White Blood Count 13.62 K/uL (4.8-10.8)
--- NOTE | 2019-03-03 23:16 | Emergency Department Note ---
History of Present Illness General Chief complaint: Fall Stated complaint: FALL/LT. RIB PAIN History of Present Illness Maximum Pain Intensity: 6 This 84-year-old presents to the ER complaining of fall Location: Head and left lateral chest Quality: Achy Severity: Moderate Duration: Tonight Timing: Patient lost her balance and fell Context: Pain persisted and patient came in Modifying factors: better with rest; worse with activity Patient states she has been having frequent falls over the past several months. This is not new. Patient states she is getting out of her recliner lost her balance and fell onto the couch. She is trying to get up to walk her dogs. Patient denies dyspnea, abdominal pain, neck pain, loss of consciousness, numbness, tingling, localized weakness. Patient was given Tylenol and Zofran. She lives in independent living facility. She does take a baby aspirin. Home Medications Home Medications Medication Instructions Recorded Confirmed Type acetaminophen 650 mg PO BID PRN 09/29/18 03/04/19 History amlodipine 5 mg PO DAILY 09/29/18 03/04/19 History atorvastatin 10 mg PO DAILY 09/29/18 03/04/19 History carvedilol 12.5 mg PO BIDM 09/29/18 03/04/19 History citalopram 40 mg PO DAILY 09/29/18 03/04/19 History clopidogrel 75 mg PO DAILY 09/29/18 03/04/19 History cyanocobalamin (vitamin B-12) 500 mcg PO DAILY 09/29/18 09/29/18 History [Vitamin B-12] diphenoxylate-atropine 1 tab PO DIRECTED 09/29/18 09/29/18 History levothyroxine 100 mcg PO DAILY 09/29/18 09/29/18 History lisinopril 5 mg PO HS 09/29/18 09/29/18 History magnesium oxide 400 mg PO DAILY 09/29/18 09/29/18 History multivitamin 1 tab PO DAILY 09/29/18 09/29/18 History nitroglycerin [Nitrostat] 0.4 mg SUBLINGUAL DIRECTED 09/29/18 09/29/18 History trazodone 50 mg PO HS PRN 09/29/18 09/29/18 History cholecalciferol (vitamin D3) 2,000 unit PO DAILY 03/04/19 03/04/19 History [Vitamin D3] meclizine 1 - 2 tabs PO Q8 PRN 03/04/19 03/04/19 History methenamine mandelate 1 g PO HS 03/04/19 03/04/19 History pantoprazole 40 mg PO DAILY 03/04/19 03/04/19 History Allergies Allergy/AdvReac Type Severity Reaction Status Date / Time Sulfa (Sulfonamide Allergy Unknown . Unverified 01/08/18 16:41 Antibiotics) Unclassified Drugs Allergy Unknown ANESTHESIA Uncoded 07/17/16 15:34 Past Med/Surg History Medical History Stroke (Chronic) Hypertension (Chronic) A-fib (Chronic) Crohn's disease (Chronic) Family History Other Family history non-contributory Social History Preferred Language: Fijian Current Living Situation: Other Current Living Situation Comment: [facility] Feels Safe at Home: Yes Smoking Status: Never smoker Review of Systems All systems reviewed & are unremarkable except as noted in HPI & below Physical Exam Vital Signs Vital Signs - 24 hr 03/03/19 22:51 03/03/19 23:02 03/04/19 00:05 Temperature 36.6 C Temperature Source Oral Sepsis Recent Fever Within 48 Hours No Sepsis Action Taken by Nursing No Action Required Pulse Rate 94 H Pulse Rate [Right Finger] 73 Pulse Rhythm Regular Pulse Rhythm [Right Finger] Regular Pulse Strength Normal Pulse Strength [Right Finger] Normal Respiratory Rate 18 20 Respiratory Effort / Characteristics Non-Labored Spontaneous Non-Labored Spontaneous Respiratory Depth Normal Normal Respiratory Pattern Regular Blood Pressure 193/74 H Blood Pressure [Left Arm] 156/74 H Blood Pressure Mean 113 Blood Pressure Mean [Left Arm] 101 Blood Pressure Position Sitting Pulse Oximetry 93 93 94 Oxygen Delivery Method Room Air Room Air Room Air 03/04/19 01:09 Temperature Temperature Source Sepsis Recent Fever Within 48 Hours Sepsis Action Taken by Nursing Pulse Rate Pulse Rate [Right Finger] 74 Pulse Rhythm Pulse Rhythm [Right Finger] Regular Pulse Strength Pulse Strength [Right Finger] Normal Respiratory Rate 18 Respiratory Effort / Characteristics Non-Labored Spontaneous Respiratory Depth Normal Respiratory Pattern Blood Pressure Blood Pressure [Left Arm] 180/84 H Blood Pressure Mean Blood Pressure Mean [Left Arm] 116 Blood Pressure Position Pulse Oximetry 95 Oxygen Delivery Method PHYSICAL EXAM: VITALS: Vitals are noted on the nurse's note and reviewed by myself. Vital signs stable. GENERAL: Pleasant elderly female, in no acute distress, nondiaphoretic, well- developed well-nourished. SKIN: The skin was without obvious lacerations or abrasions. Capillary reflex less than 2 seconds. HEAD: Normocephalic atraumatic. EARS: External auditory canals clear, tympanic membranes pearly franco without erythema or effusion bilaterally. No hemotympanums. No marquez sign. No mastoid tenderness. EYES: Pupils equal round and reactive to light and accommodation. Conjunctivae without injection, sclerae without icterus. Extraocular movements intact. NOSE: Patent, turbinates without inflammation or discharge. No sinus tenderness. No septal hematoma or bleeding. FACE: No facial bone tenderness. Full range of motion of the jaw without tenderness. MOUTH: Mucous membranes moist. Pharynx without erythema or exudate. Uvula midline. Airway patent. Tongue does not deviate. NECK: Supple without nuchal rigidity. Cervical spine is nontender. Full range of motion of the neck without tenderness. No JVD. HEART: Regular rate and rhythm LUNGS: Clear to auscultation bilaterally without wheezes, rales or rhonchi. No retractions or accessory muscle use. Left lateral chest wall tenderness. ABDOMEN: Positive bowel sounds x 4. Normal tympanic percussion. Soft, ostomy bag right mid abdomen, nontender, without organomegaly. No guarding or rebound tenderness. MUSCULOSKELETAL: No tenderness of the thoracic or lumbar spine. No tenderness with pelvic rocking. Full range of motion without tenderness to palpation in all extremities. Strength 5/5 throughout. Peripheral pulses 2+. NEURO: Patient was alert and oriented to person place and time. Normal Mini- Mental status exam. Normal sensation to light and sharp touch. Negative Romberg and pronator drift. Cerebellar function intact. No focal neurological deficits. Course Administered Medications Discontinued Medications Ceftriaxone Sodium (Rocephin) 1,000 mg in 50 mls @ 100 mls/hr IV NOW STA Stop: 03/04/19 00:29 Last Infusion: 03/04/19 00:44 Dose: 0 mls/hr Documented by: [id number] Admin: 03/04/19 00:05 Dose: 100 mls/hr Documented by: [id number] Medical Decision Making Medical Records Attestation: I reviewed the patient's medical records. Home Medications Current Medication List: was personally reviewed by me Laboratory Data Attestation: I reviewed the patient's lab results. Result diagrams: 03/03/19 22:59 03/03/19 22:59 Lab Results 03/03/19 03/03/19 03/03/19 Range/Units 22:59 22:59 22:59 WBC 13.62 H (4.8-10.8) K/uL RBC 4.24 (4.2-5.4) M/uL Hgb 11.6 L (12.0-16.0) g/dL Hct 34.4 L (37-47) % MCV 81.1 (80-100) fL MCH 27.4 (25-34) pg MCHC 33.7 (32-36) g/dL RDW Std Deviation 49.9 H (36.4-46.3) fL RDW Coeff of Heladio 16.6 H (11.5-14.5) % Plt Count 326 (130-400) K/uL MPV 9.7 (7.4-10.4) fL Immature Gran % (Auto) 0.7 % Neut % (Auto) 70.0 % Lymph % (Auto) 16.7 % Dillingham % (Auto) 11.3 % Eos % (Auto) 1.2 % Baso % (Auto) 0.1 % Immature Gran # (Auto) 0.09 H (0.00-0.02) K/uL Neut # (Auto) 9.55 H (1.4-6.5) K/uL Lymph # (Auto) 2.27 (1.2-3.4) K/uL [place]illingham # (Auto) 1.54 H (0.11-0.59) K/uL Eos # (Auto) 0.16 (0-0.5) K/uL Baso # (Auto) 0.01 (0-0.2) K/uL Sodium 138 (136-145) mmol/L Potassium 4.1 (3.5-5.1) mmol/L Chloride 104 (98-107) mmol/L Carbon Dioxide 27 (21-32) mmol/L Anion Gap 8.0 (3-11) BUN 44 H (7-18) mg/dl Creatinine 1.89 H (0.6-1.2) mg/dl Est Cr Clr Drug Dosing Not Reportable Est GFR ( Amer) 27.8 Est GFR (Non-Af Amer) 23.9 BUN/Creatinine Ratio 23.5 H (10-20) Glucose 131 H (70-99) mg/dl Calcium 8.4 L (8.5-10.1) mg/dl Magnesium 1.4 L (1.8-2.4) mg/dl Total Bilirubin 0.4 (0.2-1) mg/dl AST 13 L (15-37) U/L ALT 22 (12-78) U/L Alkaline Phosphatase 88 (45-117) U/L Troponin I < 0.015 (0-0.045) ng/ml Total Protein 6.5 (6.4-8.2) gm/dl Albumin 3.4 (3.4-5.0) gm/dl Globulin 3.1 (2.5-4.0) gm/dl Albumin/Globulin Ratio 1.1 (0.9-2) TSH 2.080 (0.300-4.500) uIu/ml Urine Color Yellow Urine Appearance Cloudy A (Clear) Urine pH 6.0 (4.5-7.5) Ur Specific Harris 1.014 (1.000-1.030) Urine Protein Negative (Negative) Urine Glucose (UA) Negative (Negative) Urine Ketones Negative (Negative) Urine Blood Negative (Negative) Urine Nitrite Positive A (Negative) Urine Bilirubin Negative (Negative) Urine Urobilinogen Negative (Negative) Ur Leukocyte Esterase 2+ H (Negative) Urine WBC (Auto) >30 H (0-5) /hpf Urine RBC (Auto) 0-4 (0-4) /hpf U Hyaline Cast (Auto) 1-5 (0-5) /lpf U Epithel Cells (Auto) 20-30 H (0-5) /lpf Urine Bacteria (Auto) 4+ H (Negative) Imaging Data Attestation: I personally reviewed and interpreted this imaging study as follows: Blood Pressure Blood Pressure Findings: Elevated blood pressure Blood Pressure Disposition: Referred to patients primary care provider [facility] Narrative Prior records/ancillary studies reviewed and summarized above. Nursing notes reviewed. Additional history obtained from EMS. The patient's history was concerning for fall. Differential diagnosis: Etiologies such as metabolic,fracture, contusion, infection, hypo/hyperglycemia, electrolyte abnormalities, cardiac sources, intracerebral event, toxicologic, neurologic, as well as others were entertained. Physical examination: As above. ER treatment provided: IV Lock Patient declined pain meds On reassessment the patient felt better. Diagnostics interpretation by me: ECG: Normal sinus, normal intervals, left axis deviation, no acute ST-T wave changes, rate of 68. Impression normal sinus rhythm with a left axis deviation interpreted by myself The chart was completed utilizing [employer] voice recognition software. Grammatical errors, random word insertions, pronoun errors, and incomplete sentences are an occassional consequence of this system due to software limitations, ambient noise, and hardware issues. Any formal questions or concerns about the content, text, or information contained within the body of this dictation should be directly addressed to the physician construction management assistant for clarification. The labs revealed urine concerning for infection and sent for culture Creatinine 1.89. Slightly higher than baseline per chart review Leukocytosis Imaging studies: CT CHEST Without Contrast: 4.1 cm ascending aortic aneurysm Left anterior fourth and fifth rib fractures. Left lateral sixth and seventh rib fractures. Left posterior seventh rib fracture. These were not present on the prior. No pneumothorax Scattered pulmonary nodules are again seen. A 9 mm right lower lobe nodule was not seen on the prior scan and is suspicious for malignancy. Radiologist: Stuart Walker MD CT C SPINE: Negative Radiologist: Stuart Walker MD CT HEAD: No fracture or hemorrhage Radiologist: Stuart Walker MD Consultation: A consultation was placed with the hospitalist, Dr Gerardo. The case was discussed and diagnostics were reviewed. The patient was evaluated in the ER for further treatment. Exam and history seem consistent with fall with UTI and multiple rib fractures. Medicine was consulted. Patient is agreeable to treatment plan of admission. She was given Rocephin for the UTI. No recent culture was seen in chart review. Urine culture was placed. Repeat abdominal exam is benign. the daughter states that the patient is supposed to be on prophylactic antibiotics for his tory of kidney stones with UTIs but is unable to swallow the tablet and has not been taking them over the past month. They follow with [facility] urology. Daughter states she has been having increasing frequent falls this past month. Patient's vital signs are stable. She was not hypoxic. Her pain was managed with Tylenol. By the evaluation outlined above emergent etiologies such as electrolyte abnormalities, cardiac sources, intracerebral event, toxologic, neurologic, abnormalities blood glucose, metabolic, as well as others were deemed relatively unlikely. The pt informed about the findings as listed above. All questions were answered and pleased with the treatment. Case reviewed with my attending The chart was completed utilizing [employer] voice recognition software. Grammatical errors, random word insertions, pronoun errors, and incomplete sentences are an occassional consequence of this system due to software limitations, ambient noise, and hardware issues. Any formal questions or concerns about the content, text, or information contained within the body of this dictation should be directly addressed to the physician construction management assistant for clarification. Impression & Plan Multiple rib fractures, Acute UTI, Fall, Head injury Discharge Plan Visit Data Chief Complaint: Fall Stated Complaint: FALL/LT. RIB PAIN ED Provider: Mark Luo ED Midlevel Provider: Dena Gary Discharge Problem: Multiple rib fractures, Acute UTI, Fall, Head injury Patient Disposition: Admitted As Inpatient Condition: Fair Forms Stand Alone Forms: [facility] Prescriptions Prescriptions: No Action multivitamin Tablet 1 tab PO DAILY RF: 0 acetaminophen 325 mg Tablet 650 mg PO BID PRN (Reason: Pain) RF: 0 carvedilol 12.5 mg Tablet 12.5 mg PO BIDM RF: 0 citalopram 40 mg Tablet 40 mg PO DAILY RF: 0 trazodone 50 mg Tablet 50 mg PO HS PRN (Reason: Insomnia) RF: 0 atorvastatin 10 mg Tablet 10 mg PO DAILY RF: 0 diphenoxylate-atropine 2.5-0.025 mg Tablet 1 tab PO DIRECTED RF: 0 clopidogrel 75 mg Tablet 75 mg PO DAILY RF: 0 amlodipine 5 mg Tablet 5 mg PO DAILY RF: 0 levothyroxine 100 mcg Tablet 100 mcg PO DAILY RF: 0 lisinopril 10 mg Tablet 5 mg PO HS RF: 0 nitroglycerin [Nitrostat] 0.4 mg Tablet, Sublingual 0.4 mg Sublingual DIRECTED RF: 0 cyanocobalamin (vitamin B-12) [Vitamin B-12] 500 mcg Lozenge 500 mcg PO DAILY RF: 0 magnesium oxide 400 mg magnesium Tablet 400 mg PO DAILY RF: 0 Referrals Referrals: Jason Pike MD [Primary Care Provider] -
[2019-03-03 23:25] LABS: Alanine Aminotransferase 22 U/L (12-78); Albumin Level 3.4 gm/dl (3.4-5.0); Aspartate Aminotransferase 13 U/L (15-37); BUN Creatinine Ratio 23.5 (10-20); Blood Urea Nitrogen 44 mg/dl (7-18); Calcium 8.4 mg/dl (8.5-10.1); Carbon Dioxide 27 mmol/L (21-32); Chloride 104 mmol/L (98-107); Est GFR (African American) 27.8; Est GFR (Non-African American) 23.9; Glucose 131 mg/dl (70-99); Magnesium 1.4 mg/dl (1.8-2.4); Potassium 4.1 mmol/L (3.5-5.1); Sodium 138 mmol/L (136-145)
[2019-03-03 23:36] LABS: Albumin Globulin Ratio 1.1 (0.9-2); Alkaline Phosphatase 88 U/L (45-117); Bilirubin,Total 0.4 mg/dl (0.2-1); Globulin 3.1 gm/dl (2.5-4.0); Total Protein 6.5 gm/dl (6.4-8.2); Troponin I < 0.015 ng/ml (0-0.045)
[2019-03-03 23:47] LABS: Appearance Urine Cloudy (Clear); Bacteria Urine Automated 4+ (Negative); Bilirubin Urine Negative (Negative); Blood Urine Negative (Negative); Color Urine Yellow; Epithelial Cell Urine Auto 20-30 /lpf (0-5); Glucose Urine UA Negative (Negative); Ketones Urine Negative (Negative); Leukocyte Esterase Urine 2+ (Negative); Nitrite Urine Positive (Negative); Protein Urine Negative (Negative); RBC Urine Automated 0-4 /hpf (0-4); Specific Gravity Urine 1.014 (1.000-1.030); Urobilinogen Urine Negative (Negative); WBC Urine Automated >30 /hpf (0-5)
[2019-03-04] MEDS ORDERED: cefTRIAXone SODIUM 1,000 MG/50 ML BAG IV STA
--- NOTE | 2019-03-04 01:16 | Emergency Department Note ---
ED Visit Note I have personally evaluated this patient examined her and reviewed the pertinent labs and data. I have discussed the case with Cynthia Gary, the physician assistant center manager and agree with the plan. Please refer to the PA note. This patient comes in after suffering a fall her daughter says she is fallen a couple times recently. It is unclear whether she had syncope or not and she is complaining of rib pain. IV access established and blood work was obtained she was found to have a urine that suggest a UTI and she was given IV Rocephin. She is afebrile here and has no evidence to suggest sepsis. On my exam, she appears comfortable complain of rib pain with movement. She is in no respiratory distress. I talked to her daughter and the patient at length. Her abdomen is benign and she has an ostomy and old hernia but nothing acute in the abdomen exam. Her CAT scans were obtained and do show multiple rib fractures. I do think she needs to be admitted for pain management as well as further work-up for her frequent falls. .
[2019-03-04] MEDS ORDERED: MoRPHine SULFATE 2 MG/ML CARP ONE (02:18)
--- NOTE | 2019-03-04 03:24 | History & Physical Report ---
Date of Service March 04, 2019 Assessment & Plan (1) Fall: 84-year-old female was admitted on 04 Mar 2019 for multiple rib fractures s/p fall and UTI. Fall, multiple rib fractures: Fall at home. Question of preceding dizziness (a little currently) after standing and indigestion earlier in the day (resolved). Question of LOC for a few moments. No evidence of seizure activity. May have in part be due to her UTI as below. She has a home prescription for meclizine. - Multiple scans performed with overnight radiology reads. CT head and cervical spine were without acute findings. CT chest notes left anterior fourth and fifth rib fractures, left lateral sixth and seventh rib fracture, left posterior seventh rib fracture. - On arrival, afebrile, regular rhythm, hypertensive, with relatively normal room SpO2. WBC 13.6. Normal TSH. Negative troponin. EKG was NSR, rate 68. - Will provide low-dose morphine for pain control. Incentive spirometry. Check a CK as a precaution. Neurochecks for next 12 hours. Dizziness: In brief medical record review, patient was seen by ENT as recently as January 2019 for dizziness and Mnire's disease. Started on meclizine. Recommended for vestibular physical therapy. UTI: Increased urinary frequency for over 1 week. Mild suprapubic tenderness on exam. UA positive for nitrite, WBC, bacteria, but multiple epithelial cells. Urine culture sent. - Per daughter, was previously on some level of urinary antibiotic/antiseptic (? methenamine) but has not taken this for 4 to 6 weeks due to pill swallowing issues. - Brief record review notes history of right staghorn calculi and recurrent UTIs. - In ED, treated with ceftriaxone. We will continue this for now. Further radiology findings: CT chest notes 4.1 cm ascending aortic aneurysm, scattered pulmonary nodules, and a 9 mm right lower lobe nodule suspicious for malignancy. - Consulted thoracic surgery. Anemia: Admit Hb 11.6, similar to previous. - Will recheck in the morning given above trauma. Elevated creatinine: Admit Cr 1.89, with recent comparisons around 1.5. BUN 44. Unclear if she has established chronic kidney disease. - Started small amount of IVF. Will recheck in the morning. Hypomagnesemia: Admit Mg 1.4. Replaced, recheck in a.m.. She is on suppleme ntal magnesium at home, continue here as well. Ongoing medical issues: - Hypertension: BP in ED as high as 193/74. Some is stress response. Continue home amlodipine, atorvastatin, Coreg, Nitrostat as needed. --- Hold home lisinopril for mild ALBERTA. - Atrial fibrillation: History of the same, unclear duration. Has pacemaker. Continue home Plavix. - History of DVT: Right leg. - Stroke around 2010: Reported residual speech delay, swallowing issues, right- sided weakness. - Ostomy: Consequence of hemorrhoid surgery and sphincter injury. Patient is on track for prior LLQ ostomy site hernia repair with Dr. Harrison around 21May. - ? GERD: Continue home pantoprazole. - Hypothyroidism: Continue home levothyroxine. - Depression: Continue home citalopram. - Recent left knee swelling: Ortho following. Code status: Full code. Diet: Regular. DVT prophy: SCDs. Holding on chemical prophy due to acute fractures. PT/OT: Ordered. Disbo: Admit to MedSurg. (2) Multiple rib fractures: (3) Dizziness: (4) Meniere's disease: (5) Acute UTI: (6) Ascending aortic aneurysm: (7) Pulmonary nodules: (8) Anemia: (9) Elevated serum creatinine: (10) Hypomagnesemia: (11) Hypertension: (12) Atrial fibrillation: (13) History of DVT (deep vein thrombosis): (14) Stroke: (15) Hypothyroidism: (16) Depression: History of Present Illness Primary Care Provider: Jason Pike MD 84-year-old female is accompanied by her daughter who arrived to the emergency department via EMS after an unwitnessed fall in her home. Patient says that she was going to let her dog out when she stood up, thinks she got a bit dizzy, and recalls falling into the wooden armrest of her chair. She thinks that she passed out for perhaps few moments and recalls waking up on the ground, finding a phone, and calling her daughter. Her daughter then came over a couple minutes later and called EMS. Patient thinks that during her fall she struck the left side of her face but primarily landed on her left upper chest. She denies any tongue biting, loss of bowel or bladder function, or any extremity pains. - At time of H&P, patient says that her left-sided facial injury is currently not painful and not a concern of hers. She continues to have some left upper chest pain around her rib cage. She denies any overt chest pain or shortness of breath. She does have a history of a stroke in 2010 with some residual speech, swallowing difficulty, and right-sided weakness, but patient denies any current headache or acute difficulty with extremity movement. - As part of the review of systems, patient does note that she has had some increased urinary frequency over the past week. She denies any dysuria, h ematuria, or generalized abdominal pain. - She does also note that she has an ostomy and requests assistance with this. --- Past medical history includes hypertension, atrial fibrillation, DVT, CVA, hypothyroidism, depression, left knee swelling. --- Past surgical history includes cataract surgery, colostomy, ileostomy, hysterectomy, lumbar vertebral fusion, pacemaker placement, thyroid surgery, tonsillectomy. --- Social history includes denying personal tobacco use but her smoked quite a bit. Denies alcohol use. Lives alone at [facility] (daughter says this is not assisted living). Allergies Allergy/AdvReac Type Severity Reaction Status Date / Time Sulfa (Sulfonamide Allergy Unknown . Unverified 03/04/19 01:43 Antibiotics) Unclassified Drugs Allergy Unknown ANESTHESIA Uncoded 03/04/19 01:43 Home Medications Home Medications Medication Instructions Recorded Confirmed Type acetaminophen 650 mg PO BID PRN 09/29/18 03/04/19 History amlodipine 5 mg PO DAILY 09/29/18 03/04/19 History atorvastatin 10 mg PO DAILY 09/29/18 03/04/19 History carvedilol 12.5 mg PO BIDM 09/29/18 03/04/19 History citalopram 40 mg PO DAILY 09/29/18 03/04/19 History clopidogrel 75 mg PO DAILY 09/29/18 03/04/19 History cyanocobalamin (vitamin B-12) 500 mcg PO DAILY 09/29/18 03/04/19 History [Vitamin B-12] diphenoxylate-atropine 1 tab PO DIRECTED 09/29/18 03/04/19 History levothyroxine 100 mcg PO DAILY 09/29/18 03/04/19 History lisinopril 5 mg PO HS 09/29/18 03/04/19 History magnesium oxide 400 mg PO DAILY 09/29/18 03/04/19 History multivitamin 1 tab PO DAILY 09/29/18 03/04/19 History nitroglycerin [Nitrostat] 0.4 mg SUBLINGUAL DIRECTED PRN 09/29/18 03/04/19 History trazodone 50 mg PO HS PRN 09/29/18 03/04/19 History cholecalciferol (vitamin D3) 2,000 unit PO DAILY 03/04/19 03/04/19 History [Vitamin D3] meclizine 1 - 2 tabs PO Q8 PRN 03/04/19 03/04/19 History methenamine mandelate 1 g PO HS 03/04/19 03/04/19 History pantoprazole 40 mg PO DAILY 03/04/19 03/04/19 History Past Med/Surg History Medical History Stroke (Chronic) Hypertension (Chronic) A-fib (Chronic) Crohn's disease (Chronic) Family History Other Family history non-contributory Social History Preferred Language: Hungarian Communication Ability: Effective Supervisor Incising Required: No Beliefs That Will Affect Care: None Current Living Situation: Alone Current Living Situation Comment: [facility] Feels Safe at Home: Yes Safety Concerns: Feels Safe At This Time Smoking Status: Never smoker Hx Alcohol Use: No Hx Substance Use: No Review of Systems Review of Systems: Constitutional: Denies fevers, chills, focal weakness Eyes: Denies any visual loss or diplopia ENT: Denies any ear/nose/throat pain or acute difficulty speaking or swallowing Respiratory: Denies any dyspnea, cough, hemoptysis Cardiovascular: Denies any chest pain or feeling of edema Gastrointestinal: Denies any abdominal pain, nausea/vomiting/diarrhea Musculoskeletal: Denies any acute extremity pains, myalgias, or focal weakness. Positive left side thoracic pain. Skin: Denies any known acute rashes or lesions Neuro: Denies any headache, acute focal weakness or numbness. Physical Exam Physical Exam: GENERAL: Awake, alert, well-appearing, in no acute distress. HENT: Normocephalic, atraumatic. Oropharynx unremarkable. Notably, left side of the face and jaw appear atraumatic. EYES: Normal conjunctiva. Sclera non-icteric. NECK: Inspection normal. Supple and full ROM. No nuchal rigidity. Chest wall: Tenderness over the lateral left chest wall without clear breaks in the skin or current contusion. CARDIAC: +S1S2 RRR, 2/6 systolic murmur. RESPIRATORY: Clear to auscultation. No wheezes or rales. Normal respiratory effort. Positive pain on deep inspiration. GI: +BS, soft, non-distended. No tenderness to palpation. No rebound or guarding. No appreciable masses. EXTREMITIES: No pedal edema or calf tenderness. Moving all extremities naturally and easily. NEURO: No gross neuro deficits, though patient says right arm and leg feel weaker than left. Walks to the bathroom with minimal assistance but feels dizzy doing so. Results & Data Vital Signs (Past 12 Hours) Vital Signs Temp Pulse Pulse Resp BP BP Pulse Ox 03/04/19 02:17 76 18 180/83 H 92 03/04/19 01:09 74 18 180/84 H 95 03/04/19 00:05 73 20 156/74 H 94 03/03/19 23:02 93 03/03/19 22:51 36.6 C 94 H 18 193/74 H 93 Laboratory Results 03/03/19 03/03/19 03/03/19 Range/Units 22:59 22:59 22:59 WBC 13.62 H (4.8-10.8) K/uL RBC 4.24 (4.2-5.4) M/uL Hgb 11.6 L (12.0-16.0) g/dL Hct 34.4 L (37-47) % MCV 81.1 (80-100) fL MCH 27.4 (25-34) pg MCHC 33.7 (32-36) g/dL RDW Std Deviation 49.9 H (36.4-46.3) fL RDW Coeff of Heladio 16.6 H (11.5-14.5) % Plt Count 326 (130-400) K/uL MPV 9.7 (7.4-10.4) fL Immature Gran % (Auto) 0.7 % Neut % (Auto) 70.0 % Lymph % (Auto) 16.7 % [place] % (Auto) 11.3 % Eos % (Auto) 1.2 % Baso % (Auto) 0.1 % Immature Gran # (Auto) 0.09 H (0.00-0.02) K/uL Neut # (Auto) 9.55 H (1.4-6.5) K/uL Lymph # (Auto) 2.27 (1.2-3.4) K/uL [place] # (Auto) 1.54 H (0.11-0.59) K/uL Eos # (Auto) 0.16 (0-0.5) K/uL Baso # (Auto) 0.01 (0-0.2) K/uL Sodium 138 (136-145) mmol/L Potassium 4.1 (3.5-5.1) mmol/L Chloride 104 (98-107) mmol/L Carbon Dioxide 27 (21-32) mmol/L Anion Gap 8.0 (3-11) BUN 44 H (7-18) mg/dl Creatinine 1.89 H (0.6-1.2) mg/dl Est Cr Clr Drug Dosing Not Reportable Est GFR ( Amer) 27.8 Est GFR (Non-Af Amer) 23.9 BUN/Creatinine Ratio 23.5 H (10-20) Glucose 131 H (70-99) mg/dl Calcium 8.4 L (8.5-10.1) mg/dl Magnesium 1.4 L (1.8-2.4) mg/dl Total Bilirubin 0.4 (0.2-1) mg/dl AST 13 L (15-37) U/L ALT 22 (12-78) U/L Alkaline Phosphatase 88 (45-117) U/L Troponin I < 0.015 (0-0.045) ng/ml Total Protein 6.5 (6.4-8.2) gm/dl Albumin 3.4 (3.4-5.0) gm/dl Globulin 3.1 (2.5-4.0) gm/dl Albumin/Globulin Ratio 1.1 (0.9-2) TSH 2.080 (0.300-4.500) uIu/ml Urine Color Yellow Urine Appearance Cloudy A (Clear) Urine pH 6.0 (4.5-7.5) Ur Specific [place] 1.014 (1.000-1.030) Urine Protein Negative (Negative) Urine Glucose (UA) Negative (Negative) Urine Ketones Negative (Negative) Urine Blood Negative (Negative) Urine Nitrite Positive A (Negative) Urine Bilirubin Negative (Negative) Urine Urobilinogen Negative (Negative) Ur Leukocyte Esterase 2+ H (Negative) Urine WBC (Auto) >30 H (0-5) /hpf Urine RBC (Auto) 0-4 (0-4) /hpf U Hyaline Cast (Auto) 1-5 (0-5) /lpf U Epithel Cells (Auto) 20-30 H (0-5) /lpf Urine Bacteria (Auto) 4+ H (Negative) Medications Administered Discontinued Medications Ceftriaxone Sodium (Rocephin) 1,000 mg in 50 mls @ 100 mls/hr IV NOW STA Stop: 03/04/19 00:29 Last Infusion: 03/04/19 00:44 Dose: 0 mls/hr Documented by: [id number] Admin: 03/04/19 00:05 Dose: 100 mls/hr Documented by: [id number] Morphine Sulfate (Morphine Sulfate) Confirm Administered Dose 2 mg .ROUTE .STK- MED ONE Stop: 03/04/19 02:19 Last Admin: 03/04/19 02:19 Dose: 1 mg Documented by: [id number] Code Status & VTE Plan Code Status Full code VTE Prophylaxis Plan VTE Prophylaxis will be ordered: Yes Supervising Physician Co-Signing Physician Notes Patient seen and examined, chart reviewed, case [facility]. Castillo and I agree with his assessment and plan as documented above. Briefly, patient is an 84yo C female with histoty of CAD, HTN, CVA, PAF presenting after fall at home which resulted in multiple rib fractures. Workup also revealed ascending aortic aneurysm without rupture or dissection and a new pulmonary nodule suspicious for malignancy. On exam she is afebrile, hemodynamically stable, NAD but in some pain, breathing with shallow breaths HEENT: MMM, neck supple Heart:+S1/S2 Lungs: CTA Abd: soft, NT/ND Ext: warm Labs and images reviewed. Assessment/Plan: Admit to medical floor Pain control for rib fractures, encourage ambulation with assistance and use of incentive spirometry Thoracics consult for possible biopsy of most recently discovered lung nodule Patient will need outpatient followup and serial imaging for aneurysm Remainder of plan as above Resident Activity Tracking Resident Involvement: Resident Care Provided Care Provided: Adult [facility] Medicine (1) Multiple rib fractures Encounter type: initial encounter Fracture type: closed Laterality: left Qualified Code(s): S22.42XA - Multiple fractures of ribs, left side, initial encounter for closed fracture
[2019-03-04] MEDS ORDERED: DIPHENOXYLATE/ATROPINE 2.5/0.025MG TAB PO PRN (04:12)
[2019-03-04] MEDS ORDERED: ONDANSETRON INJ 2 MG/ML 2 ML VIAL IV PRN (04:12)
[2019-03-04] MEDS ORDERED: NITROGLYCERIN SL 0.4 MG/TAB TAB SL PRN (04:12)
[2019-03-04] MEDS ORDERED: ACETAMINOPHEN 325 MG TAB PO PRN (04:12)
[2019-03-04] MEDS: LACTATED RINGER'S 1,000 ML IV SCH ×2 (04:38→17:03)
[2019-03-04] MEDS: MAGNESIUM SULFATE / D5W 1 GM/100 ML BAG IV SCH ×2 (04:51→05:58)
[2019-03-04] MEDS: LEVOTHYROXINE SODIUM 100 MCG TABLET PO SCH (06:03)
[2019-03-04] MEDS: MoRPHine SULFATE 2 MG/ML CARP IV PRN ×3 (06:20→20:50)
--- NOTE | 2019-03-04 06:33 | CT Scan Report ---
CT cervical spine wo con CT DOSE: HISTORY: Trauma fall TECHNIQUE: Multiaxial CT images of the cervical spine were performed and reformatted in the sagittal and coronal plane without the use of contrast. A dose lowering technique was utilized adhering to th e principles of ALARA. COMPARISON: None. FINDINGS: No fractures. No subluxation. Prevertebral soft tissues and the C1-C2 interval are intact. No pneumothorax. Generalized degenerative change. No evidence for an acute compression deformity. IMPRESSION: No fractures within the cervical spine. The above report was generated using voice recognition software. It may contain grammatical, syntax or spelling errors. Electronically signed by: Elias Guardado M.D. 03/04/2019 6:32 AM
--- NOTE | 2019-03-04 06:34 | CT Scan Report ---
CT head/brain wo con CT DOSE: 832.52 mGy.cm HISTORY: fall, head injury TECHNIQUE: Multiaxial CT images of the head were performed without the use of intravenous contrast. A dose lowering technique was utilized adhering to the principles of ALARA. Comparison: None. Findings: The paranasal sinuses and mastoid air cells are clear. The calvarium and skull base are int act. The ventricles and sulci are within normal limits. There is no mass, hematoma, midline shift, or acute infarct. Age-related atrophy and chronic small vessel change Impression: No acute intracranial abnormality. The above report was generated using voice recognition software. It may contain grammatical, syntax or spelling errors. Electronically signed by: Elias Guardado M.D. 03/04/2019 6:32 AM
--- NOTE | 2019-03-04 06:43 | CT Scan Report ---
CT OF THE CHEST WITHOUT IV CONTRAST CLINICAL HISTORY: fall, left CP COMPARISON STUDY: Chest CT January 08, 2018. Chest radiograph March 03, 2019. CT DOSE: 170.02 mGy.cm TECHNIQUE: Axial images of the chest were obtained without IV contrast. Images were reviewed in the axial, sagittal, and coronal planes. IV contrast was not administered for this examination. Automat ed exposure control was utilized for the study. A dose lowering technique was utilized adhering to t he principles of ALARA. FINDINGS: There is no pneumothorax. Dilatation of the ascending aorta, measuring 4 cm, is unchanged since CT of January 08, 2018. Pacer leads are present. Mild cardiomegaly is noted. There is no pericard ial effusion. Numerous tree-in-bud nodules within the lungs are noted with multifocal mucus plugging. A 1 cm right lower lobe nodule with associated groundglass opacity on image 150 of [address] of January 08, 2018. An 8 mm irregular right upper lobe nodule on image 113 is also new. A 6 mm grou ndglass nodule on image 92 within the right upper lobe is also new. Note is made of acute fractures o f the lateral left fourth through ninth ribs. A few fractures are mildly displaced. The fourth rib is fractured in 2 locations. No acute thoracic spine fracture is present. There are old thoracic and lluvia mbar spine compression deformity. Apparent bilateral collecting system dilatation is partially imaged and appears unchanged. Several old left rib fractures are noted. IMPRESSION: 1. Acute fractures of the left lateral fourth through ninth ribs. Several fractures are mildly displa aden. No pneumothorax. Fourth rib fractured in 2 locations. 2. Interval development of several right lung nodules, including a 1 cm right lower lobe nodule with associated groundglass opacity since CT of January 08, 2018. These are indeterminate however an infecti ous/inflammatory etiology is favored. A neoplastic process could appear similar and therefore a follo w-up chest CT in 3 months is recommended. 3. Stable dilatation of the ascending aorta, measuring 4 cm. Electronically signed by: Sancho Carl M.D. 03/04/2019 6:42 AM
--- NOTE | 2019-03-04 07:08 | XRay Report ---
XR chest 1V portable HISTORY: weakness COMPARISON: Chest 09/29/2018. FINDINGS: No pneumothorax. No pleural effusions. The heart is normal in size. Left-sided dual-chamber pacemaker. No new focal lung consolidations to suggest pneumonia. No evidence for pulmonary edema. M ild emphysema. Vertebroplasty within the lower thoracic spine. Old, healed left-sided rib fractures. IMPRESSION: No significant change compared to the prior study. No acute process. Electronically signed by: Hardeep Tang M.D. 03/04/2019 7:06 AM
[2019-03-04] MEDS: CHOLECALCIFEROL 1,000 UNITS TAB PO SCH (08:22)
[2019-03-04] MEDS: PANTOprazole 40 MG TAB PO SCH (08:22)
[2019-03-04] MEDS: CARVEDILOL 12.5 MG TAB PO SCH ×2 (08:22→17:03)
[2019-03-04] MEDS: AMLODIPINE BESYLATE 5 MG TAB PO SCH (08:22)
[2019-03-04] MEDS: CYANOCOBALAMIN 500 MCG TABLET (VITAMIN B-12) PO SCH (08:22)
[2019-03-04] MEDS: CITALOPRAM 40 MG TAB PO SCH (08:22)
[2019-03-04] MEDS: MAGNESIUM OXIDE 400 MG TAB PO SCH (08:22)
[2019-03-04] MEDS: ATORVASTATIN 10 MG TAB PO SCH (08:22)
[2019-03-04] MEDS: CLOPIDOGREL BISULFATE 75 MG TAB PO SCH (08:22)
[2019-03-04] MEDS: MULTIVITAMIN TAB PO SCH (08:22)
--- NOTE | 2019-03-04 09:06 | Hospitalist Progress Note ---
Date of Service March 04, 2019 Assessment & Plan (1) Fall: 84-year-old female was admitted on 04 Mar 2019 for multiple rib fractures s/p fall and UTI poa. Fall, multiple rib fractures: Fall at home. Question of preceding dizziness and LOC for a few moments. No evidence of seizure activity. She has a home prescription for meclizine. - Multiple scans performed with overnight radiology reads. CT head and cervical spine were without acute findings. CT chest notes left anterior fourth and fifth rib fractures, left lateral sixth and seventh rib fracture, left posterior seventh rib fracture. low-dose morphine for pain control. Incentive spirometry. Seen by ENT as recently as January 2019 for dizziness and Mnire's disease. Started on meclizine. Recommended for vestibular physical therapy. UTI: Increased urinary frequency for over 1 week. Urine culture sent. - Per daughter, was previously on some level of urinary antibiotic/antiseptic (? methenamine) but has not taken this for 4 to 6 weeks due to pill swallowing issues. - previous history of right staghorn calculi and recurrent UTIs. -continues on ceftriaxone Further radiology findings: CT chest notes 4.1 cm ascending aortic aneurysm, scattered pulmonary nodules, and a 9 mm right lower lobe nodule suspicious for malignancy. - Consulted thoracic surgery. lung nodule program Anemia: Admit Hb 11.6, follow after traumatic fall Elevated creatinine: Admit Cr 1.89, alberta on ckd3 continue on ivf and follow Hypomagnesemia: Admit Mg 1.4. Given IV magnesium on admission and continues on supplemental magnesium po - Hypertension: BP in ED as high as 193/74. Some is stress response. Continues on home amlodipine, atorvastatin, Coreg, Nitrostat as needed. --- Hold home lisinopril for mild ALBERTA., since has ppm could push coreg dose - Atrial fibrillation: rate controlled with coreg Has pacemaker. Continue home Plavix. - History of DVT: Right leg. - Stroke around 2010: Reported residual speech delay, swallowing issues, right- sided weakness. Will order speech consultation - Ostomy: Consequence of hemorrhoid surgery and sphincter injury. Patient is on track for prior LLQ ostomy site hernia repair with Dr. Harrison around 21May. - ? GERD: Continue home pantoprazole. - Hypothyroidism: Continue home levothyroxine. - Depression: Continue home citalopram. - Recent left knee swelling: Ortho following. Code status: Full code. DVT prophy: SCDs. Holding on chemical prophy due to acute fractures. PT/OT: Ordered. (2) Multiple rib fractures: (3) Dizziness: (4) Meniere's disease: (5) Acute UTI: (6) Ascending aortic aneurysm: (7) Pulmonary nodules: (8) Anemia: (9) Elevated serum creatinine: (10) Hypomagnesemia: (11) Hypertension: (12) Atrial fibrillation: (13) History of DVT (deep vein thrombosis): (14) Stroke: (15) Hypothyroidism: (16) Depression: Subjective She has reasonable pain control she continues to state that she is got a problem swallowing. She states that when she was in [facility], 1 year ago, she h ad a dysphasia evaluation but that improved but now is worse and she is having difficulty swallowing pills. Overall her fracture pain is been well controlled Review of Systems Review of Systems: ROS: Minor discomfort in her ribs but complains of swallowing problems No double vision blurry vision No palpitations, she complains of chest pain with deep inspiration this is muscular skeletal pain No Wheezing or breathing issues No abdominal pain nausea vomiting diarrhea No burning urine urine frequency or changes in color No focal joint pain or muscle pain No skin rashes or oral lesions No unusual bruising or bleeding No focused back pain or numbness or loss of strength No changes in memory or confusion Results & Data Vital Signs (Past 12 Hours) Vital Signs Temp Pulse Pulse Pulse Resp BP BP 03/04/19 08:00 36.4 C L 64 18 180/70 H 03/04/19 05:49 137/73 03/04/19 04:14 36.2 C L 74 16 190/83 H 03/04/19 03:56 77 18 140/70 03/04/19 03:33 83 20 200/97 H 03/04/19 02:17 76 18 180/83 H 03/04/19 01:09 74 18 180/84 H 03/04/19 00:05 73 20 156/74 H 03/03/19 23:02 03/03/19 22:51 36.6 C 94 H 18 193/74 H Pulse Ox 03/04/19 08:00 95 03/04/19 05:49 03/04/19 04:14 94 03/04/19 03:56 03/04/19 03:33 95 03/04/19 02:17 92 03/04/19 01:09 95 03/04/19 00:05 94 03/03/19 23:02 93 03/03/19 22:51 93 (1) Multiple rib fractures Encounter type: initial encounter Fracture type: closed Laterality: left Qualified Code(s): S22.42XA - Multiple fractures of ribs, left side, initial encounter for closed fracture
--- NOTE | 2019-03-04 10:22 | Consultation Report ---
DATE OF CONSULTATION: 03/04/2019 REASON FOR CONSULTATION: Fractured ribs and lung nodules. HISTORY OF PRESENT ILLNESS: Sage Hoover is an 84-year-old female with no significant smoking history, although she did have some significant exposure to secondhand smoke. The patient has a history of a cerebrovascular accident, but lives alone and actually gets along well, taking care of her 2 dogs. She has had difficulties with some vertigo and possible Meniere's disease and developed some dizziness and a brief syncopal episode and fell and fractured some ribs. She was admitted early this morning. The patient had some left-sided rib fractures and was admitted as she has had multiple other issues. She was noted to have some nodules in her lungs. She has a cystic lesion in her right upper lobe and also has some pulmonary nodules. They were not present on her last CT. Although these were not present just a year ago, I am a bit concerned about the lesion in the right lower lobe. Has a spiculated appearance. At any rate, she has been relatively stable, although she states she does have a cough that is nonproductive over the last 6 months. She has lost about 6-8 pounds in the last 6 months, which is a significant amount for her, she only weighs 103 pounds now. I have been asked to see her for both of these. A CT scan showed no evidence of a pulmonary contusion or pleural effusion. PAST MEDICAL HISTORY: 1. History of a cerebrovascular accident. 2. Possible recent urinary tract infection. 3. History of staghorn calculus. 4. Renal insufficiency. 5. Known small ascending aortic aneurysm. 6. Apparent Meniere's disease. 7. Chronic atrial fibrillation. 8. History of deep vein thrombosis. 9. Hypothyroidism. 10. Depression. 11. Hypertension. PAST SURGICAL HISTORY: 1. Hysterectomy. 2. Lumbar vertebral fusion. 3. Insertion of a pacemaker for apparent sick sinus syndrome. 4. Thyroidectomy. 5. Tonsillectomy. 6. Cataract extractions with lens implants. 7. Colostomy with revision and ileostomy due to a problem with anal stricture and surgery. MEDICATIONS: 1. Pantoprazole. 2. Amlodipine. 3. Methenamine. 4. Meclizine. 5. Atorvastatin. 6. Coreg. 7. Trazodone. 8. Citalopram. 9. Multivitamin. 10. Magnesium oxide. 11. Lisinopril. 12. Plavix. 13. Synthroid. 14. Diphenoxylate-atropine. ALLERGIES: SULFA AND "ANESTHETIC DRUGS". SOCIAL HISTORY: The patient lives alone. [place] Her 7 years ago from lung cancer in his 70s. She has never smoked. She does not use alcohol. She has 2 small dogs that she cares for and walks them on a daily basis. She has a daughter who lives here in [place]. FAMILY MEDICAL HISTORY: The patient's father in his 50s from lung cancer, was a smoker. Mother in her 80s and had a stroke, but she is unsure of the exact reason for her dying. Her 2 children and 3 grandchildren are all healthy. REVIEW OF SYSTEMS: The patient has lost some weight. She stated she weighed about 110-112 pounds 6 months ago and currently weighs 103. She does not get chills or fevers, but has a nonproductive cough. She denies fevers. She has had cataract extractions with lens implants, but denies any recent change in her vision. She has had really no problems with her hearing; however, she does have difficulty with aphasia since her stroke a few years ago. She states she does have a cough, but no hemoptysis. She really does not have dyspnea. She denies chest pain or palpitations. She does have a left-sided abdominal wall hernia, which was scheduled for surgery by Dr. Harrison later this month. This is due to her old colostomy site. She has a well-functioning ileostomy on the right now. She has good femoral pulses. I can palpate pedal pulses. I do not detect any crepitus or wheezing upon auscultation. She has a few rhonchi with rales posteriorly in both lung bases. Her extremities have really no edema. She has no joint effusions. Neurologically, other than her aphasia, she does not have any obvious focal deficits. ASSESSMENT AND PLAN: Several left-sided rib fractures. We are going to check a chest x-ray tomorrow to make sure that she does not have an effusion, pulmonary contusion or other problems. As far as her nodules, we will repeat a CT scan in 3 months, and if they are persistent, may proceed with a more aggressive workup, but at this point I would like to let her get over this.
[2019-03-04 10:45] LABS: BUN Creatinine Ratio 26.9 (10-20); Calcium 8.6 mg/dl (8.5-10.1); Est GFR (African American) 38.9; Est GFR (Non-African American) 33.5; Magnesium 2.4 mg/dl (1.8-2.4); Potassium 3.6 mmol/L (3.5-5.1)
[2019-03-04 11:58] LABS: Basophils # (auto) 0.01 K/uL (0-0.2); Basophils % (auto) 0.1 %; Eosinophils # (auto) 0.17 K/uL (0-0.5); Eosinophils % (auto) 1.4 %; Hematocrit (blood only) 32.8 % (37-47); Hemoglobin 10.9 g/dL (12.0-16.0); Immature Granulocytes # (auto) 0.06 K/uL (0.00-0.02); Immature Granulocytes % (auto) 0.5 %; Lymphocytes # (auto) 2.13 K/uL (1.2-3.4); Mean Corpuscular Hgb Conc 33.2 g/dL (32-36); Mean Corpuscular Volume 80.6 fL (80-100); Mean Platelet Volume 9.6 fL (7.4-10.4); Monocytes # (auto) 1.39 K/uL (0.11-0.59); Monocytes % (auto) 11.1 %; Neutrophils # (auto) 8.78 K/uL (1.4-6.5); Neutrophils % (auto) 69.9 %; Platelet Count 293 K/uL (130-400); RDW Coefficient of Variation 16.6 % (11.5-14.5); RDW Standard Deviation 49.2 fL (36.4-46.3); Red Blood Count 4.07 M/uL (4.2-5.4); White Blood Count 12.54 K/uL (4.8-10.8)
[2019-03-04] MEDS: ACETAMINOPHEN 325 MG TAB PO PRN ×2 (12:05→20:45)
[2019-03-04] MEDS: cefTRIAXone SODIUM 1,000 MG in DEXTROSE 5% 50 ML IV SCH (23:42)
[2019-03-05] MEDS: LACTATED RINGER'S 1,000 ML IV SCH ×2 (05:20→18:13)
[2019-03-05] MEDS: LEVOTHYROXINE SODIUM 100 MCG TABLET PO SCH (05:22)
[2019-03-05] MEDS: ACETAMINOPHEN 325 MG TAB PO PRN ×4 (05:23→20:02)
[2019-03-05] MEDS: MoRPHine SULFATE 2 MG/ML CARP IV PRN ×5 (05:37→22:27)
--- NOTE | 2019-03-05 07:20 | XRay Report ---
XR chest 1V portable CLINICAL HISTORY: rib fractures COMPARISON STUDY: Chest radiograph and chest CT March 03, 2019. FINDINGS: Dual-lead left subclavian pacemaker is in place. There is a 1 level vertebral augmentation. Lumbar spine fusion hardware is partially imaged. There is no pneumothorax or pleural effusion. Edith ral acute minimally displaced left rib fractures are unchanged since prior CT. There are old left rib fractures as well. There is no pneumothorax or pleural effusion. Cardiomediastinal silhouette is sta ble. The right lung nodular airspace opacity is better depicted on prior chest CT. IMPRESSION: No pneumothorax. No change in alignment of multiple mildly displaced and nondisplaced ac davi left rib fractures. Electronically signed by: Sancho Carl M.D. 03/05/2019 7:19 AM
[2019-03-05] MEDS: ATORVASTATIN 10 MG TAB PO SCH (08:47)
[2019-03-05] MEDS: AMLODIPINE BESYLATE 5 MG TAB PO SCH (08:47)
[2019-03-05] MEDS: MAGNESIUM OXIDE 400 MG TAB PO SCH (08:47)
[2019-03-05] MEDS: CARVEDILOL 12.5 MG TAB PO SCH ×2 (08:47→16:53)
[2019-03-05] MEDS: CLOPIDOGREL BISULFATE 75 MG TAB PO SCH (08:48)
[2019-03-05] MEDS: CYANOCOBALAMIN 500 MCG TABLET (VITAMIN B-12) PO SCH (08:48)
[2019-03-05] MEDS: CITALOPRAM 40 MG TAB PO SCH (08:48)
[2019-03-05] MEDS: CHOLECALCIFEROL 1,000 UNITS TAB PO SCH (08:48)
[2019-03-05] MEDS: PANTOprazole 40 MG TAB PO SCH (08:48)
[2019-03-05] MEDS: MULTIVITAMIN TAB PO SCH (08:48)
--- NOTE | 2019-03-05 17:38 | Progress Note ---
DATE: 03/05/2019 Ms. Hoover was seen today. I was quite pleased with her physical exam. She is moving air well on the left. She does have obviously fractured ribs on her x-ray, but I see no evidence of any pneumothorax. She has no evidence of any effusion or contusion. This is going to be a matter of pain control. I would continue our current therapy. She seemed a bit more comfortable today.
--- NOTE | 2019-03-05 18:23 | Hospitalist Progress Note ---
Date of Service March 05, 2019 Assessment & Plan (1) Fall: 84-year-old female was admitted on 04 Mar 2019 for multiple rib fractures s/p fall and UTI poa. Fall, multiple rib fractures: Fall at home. No evidence of seizure activity. She has a home prescription for meclizine. - Multiple scans performed, CT head and cervical spine were without acute findings. CT chest notes left anterior fourth and fifth rib fractures, left lateral sixth and seventh rib fracture, left posterior seventh rib fracture. pain control has been acceptable. Incentive spirometry. Seen by ENT as recently as January 2019 for dizziness and Mnire's disease. Started on meclizine. Recommended for vestibular physical therapy. UTI: Increased urinary frequency for over 1 week. Urine culture sent. - Per daughter, was previously on some level of urinary antibiotic/antiseptic (? methenamine) but has not taken this for 4 to 6 weeks due to pill swallowing issues. - previous history of right staghorn calculi and recurrent UTIs. -continues on ceftriaxone Further radiology findings: CT chest notes 4.1 cm ascending aortic aneurysm, scattered pulmonary nodules, and a 9 mm right lower lobe nodule suspicious for malignancy. - Consulted thoracic surgery. lung nodule program Anemia: Admit Hb 11.6, follow after traumatic fall Elevated creatinine: Admit Cr 1.89, alberta on ckd3 improving, stop ivf 03/05 Hypomagnesemia: Admit Mg 1.4. Given IV magnesium on admission and continues on supplemental magnesium po - Hypertension: BP in ED as high as 193/74. Some is stress response. Continues on home amlodipine, atorvastatin, Coreg, Nitrostat as needed. --- Hold home lisinopril for mild ALBERTA., since has ppm could push coreg dose - Atrial fibrillation: rate controlled with coreg Has pacemaker. Continue home Plavix. - History of DVT: Right leg. - Stroke around 2010: Reported residual speech delay, swallowing issues, right- sided weakness. This consultation feels bedside swallowing is safe at this time as long as good swallowing techniques are used - Ostomy: Consequence of hemorrhoid surgery and sphincter injury. Patient is on track for prior LLQ ostomy site hernia repair with Dr. Harrison around 21May. - ? GERD: Continue home pantoprazole. - Hypothyroidism: Continue home levothyroxine. - Depression: Continue home citalopram. - Recent left knee swelling: Ortho following. Code status: Full code. DVT prophy: SCDs. Holding on chemical prophy due to acute fractures. PT/OT: Ordered. (2) Multiple rib fractures: Process related pathological fracture of multiple left-sided ribs (3) Dizziness: (4) Meniere's disease: (5) Acute UTI: (6) Ascending aortic aneurysm: (7) Pulmonary nodules: (8) Anemia: (9) Elevated serum creatinine: (10) Hypomagnesemia: (11) Hypertension: (12) Atrial fibrillation: (13) History of DVT (deep vein thrombosis): (14) Stroke: (15) Hypothyroidism: (16) Depression: Subjective Patient is feeling somewhat better she is mostly concerned with the size of the pills she did see speech therapy and they feel her swallowing is appropriate but is more of a fear of swallowing larger pills and she requested any medications including antibiotics be amended to be liquid or crushable pills. Review of Systems Review of Systems: ROS: well nourished well developed. No double vision blurry vision No problems with speech or swallowing after evaluation by speech therapy No palpitations, is musculoskeletal chest pain with movement deep breaths No Wheezing or breathing issues No abdominal pain nausea vomiting diarrhea changes in appetite or weight No burning urine urine frequency or changes in color Reproduced with chest wall pain No skin rashes or oral lesions No unusual bruising or bleeding No focused back pain or numbness or loss of strength No changes in memory or confusion Physical Exam Physical Exam: The patient appeared well nourished and normally developed. Vital signs as documented. Head exam is unremarkable. normocephalic, atraumatic Neck is without jugular venous distension, thyromegaly, or lymphademopathy Lungs are clear to auscultation with a focal air loss Cardiac exam reveals Rhythm is regular. First and second heart sounds normal. Abdominal exam reveals normal bowel sounds, no masses, no organomegaly Extremities are nonedematous and both pedal pulses are present Neurologic exam is A&Ox3, no focal deficits, strength is equal bilateral Psychologically seems neither anxious or depressed Skin is warm Dry Results & Data Vital Signs (Past 12 Hours) Vital Signs Temp Pulse Resp BP Pulse Ox 03/05/19 16:52 80 171/71 H 03/05/19 15:12 37.0 C 78 17 163/73 H 94 03/05/19 06:55 36.8 C 71 15 170/72 H 93 (1) Multiple rib fractures Encounter type: initial encounter Fracture type: closed Laterality: left Qualified Code(s): S22.42XA - Multiple fractures of ribs, left side, initial encounter for closed fracture
[2019-03-06] MEDS: cefTRIAXone SODIUM 1,000 MG in DEXTROSE 5% 50 ML IV SCH (00:33)
[2019-03-06] MEDS: ACETAMINOPHEN 325 MG TAB PO PRN ×3 (00:33→12:11)
[2019-03-06] MEDS: MoRPHine SULFATE 2 MG/ML CARP IV PRN ×5 (00:34→14:52)
[2019-03-06] MEDS: LEVOTHYROXINE SODIUM 100 MCG TABLET PO SCH (06:02)
[2019-03-06] MEDS: MAGNESIUM OXIDE 400 MG TAB PO SCH (09:01)
[2019-03-06] MEDS: CITALOPRAM 40 MG TAB PO SCH (09:01)
[2019-03-06] MEDS: CYANOCOBALAMIN 500 MCG TABLET (VITAMIN B-12) PO SCH (09:01)
[2019-03-06] MEDS: PANTOprazole 40 MG TAB PO SCH (09:01)
[2019-03-06] MEDS: CHOLECALCIFEROL 1,000 UNITS TAB PO SCH (09:01)
[2019-03-06] MEDS: CLOPIDOGREL BISULFATE 75 MG TAB PO SCH (09:01)
[2019-03-06] MEDS: MULTIVITAMIN TAB PO SCH (09:01)
[2019-03-06] MEDS: AMLODIPINE BESYLATE 5 MG TAB PO SCH (09:02)
[2019-03-06] MEDS: ATORVASTATIN 10 MG TAB PO SCH (09:02)
[2019-03-06] MEDS: CARVEDILOL 12.5 MG TAB PO SCH (09:02)
--- NOTE | 2019-03-06 10:43 | Progress Note ---
DATE: 03/06/2019 SUBJECTIVE: The patient was seen today. Her pain is a bit better. She remains on room air with acceptable saturations. She does have mildly decreased breath sounds on the left. Her respiratory status is stable. ASSESSMENT AND PLAN: 1. Multiple left-sided rib fractures, but no evidence of pneumothorax, hemothorax, or pulmonary contusion radiographically or clinically. 2. Lung nodules. I discussed this with the patient today. I would like to let her get out of the hospital and heal up from her rib fractures and repeat her CT scan 1-2 months in the future, and I will see her back in the office.
--- NOTE | 2019-03-06 15:17 | Discharge Summary ---
Date of Service March 06, 2019 Admission HPI Per Admitting Provider 84-year-old female is accompanied by her daughter who arrived to the emergency department via EMS after an unwitnessed fall in her home. Patient says that she was going to let her dog out when she stood up, thinks she got a bit dizzy, and recalls falling into the wooden armrest of her chair. She thinks that she passed out for perhaps few moments and recalls waking up on the ground, finding a phone, and calling her daughter. Her daughter then came over a couple minutes later and called EMS. Patient thinks that during her fall she struck the left side of her face but primarily landed on her left upper chest. She denies any tongue biting, loss of bowel or bladder function, or any extremity pains. - At time of H&P, patient says that her left-sided facial injury is currently not painful and not a concern of hers. She continues to have some left upper chest pain around her rib cage. She denies any overt chest pain or shortness of breath. She does have a history of a stroke in 2010 with some residual speech, swallowing difficulty, and right-sided weakness, but patient denies any current headache or acute difficulty with extremity movement. - As part of the review of systems, patient does note that she has had some increased urinary frequency over the past week. She denies any dysuria, hematuria, or generalized abdominal pain. - She does also note that she has an ostomy and requests assistance with this. --- Past medical history includes hypertension, atrial fibrillation, DVT, CVA, hypothyroidism, depression, left knee swelling. --- Past surgical history includes cataract surgery, colostomy, ileostomy, hysterectomy, lumbar vertebral fusion, pacemaker placement, thyroid surgery, tonsillectomy. --- Social history includes denying personal tobacco use but her smoked quite a bit. Denies alcohol use. Lives alone at [facility] (daughter says this is not assisted living). Principal Diagnosis Osteoporosis related pathological fracture of multiple left-sided ribs due to fall Encephalopathy related to urinary tract infection present on admission Swallowing related issues cleared by speech therapy Discharge Exam The patient appeared well nourished and normally developed. Vital signs as documented. Head exam is unremarkable. normocephalic, atraumatic Neck is without jugular venous distension, thyromegaly, or lymphademopathy Lungs are clear to auscultation tender to examination Cardiac exam reveals Rhythm is regular.dianelys Discharge Data Allergies Allergy/AdvReac Type Severity Reaction Status Date / Time adhesive tape Allergy Severe SKIN Verified 03/04/19 08:08 IRRITATION cashew nut Allergy Severe Hives Verified 03/04/19 15:07 shellfish derived Allergy Severe SOB Verified 03/04/19 08:08 Sulfa (Sulfonamide Allergy Severe Hives Unverified 03/04/19 08:08 Antibiotics) Consultations 03/04/19 01:11 ED Decision to Admit Stat 03/04/19 04:12 Consult Case Management - Discharge Planning Routine Consult Thoracic Surgery Routine 03/04/19 18:04 Consult Lung Nodule Program Routine Ordered Studies 03/03/19 22:56 CT cervical spine wo con Urgent CT chest wo con Urgent CT head/brain wo con Urgent Hospital Course (1) Fall: 84-year-old female was admitted on 04 Mar 2019 for osteoporosis related pathologic multiple rib fractures s/p fall and UTI poa. Fall, multiple rib fractures: Fall at home. No evidence of seizure activity. She has a home prescription for meclizine. - Multiple scans performed, CT head and cervical spine were without acute findings. CT chest notes left anterior fourth and fifth rib fractures, left lateral sixth and seventh rib fracture, left posterior seventh rib fracture. pain control has been acceptable. Incentive spirometry. Seen by ENT as recently as January 2019 for dizziness and Mnire's disease. Started on meclizine. Recommended for vestibular physical therapy. UTI: Increased urinary frequency for over 1 week. - Per daughter, was previously on some level of urinary antibiotic/antiseptic (? methenamine) but has not taken this for 4 to 6 weeks due to pill swallowing issues. - previous history of right staghorn calculi and recurrent UTIs. will be discharged on oral liquid cipro for treatment of E coli urinary tract infection Further radiology findings: CT chest notes 4.1 cm ascending aortic aneurysm, scattered pulmonary nodules, and a 9 mm right lower lobe nodule suspicious for malignancy. - Consulted thoracic surgery. lung nodule program activated Anemia: Admit Hb 11.6, follow after traumatic fall Elevated creatinine: Admit Cr 1.89, alberta on ckd3 improving, stop ivf 03/05 Hypomagnesemia: Admit Mg 1.4. Given IV magnesium on admission and continues on supplemental magnesium po - Hypertension: BP in ED as high as 193/74. Some is stress response. Continues on home amlodipine, atorvastatin, Coreg, Nitrostat as needed. --- Hold home lisinopril for mild ALBERTA., since has ppm could push coreg dose - Atrial fibrillation: rate controlled with coreg Has pacemaker. Continue home Plavix. - History of DVT: Right leg. - Stroke around 2010: Reported residual speech delay, swallowing issues, right- sided weakness. This consultation feels bedside swallowing is safe at this time as long as good swallowing techniques are used - Ostomy: Consequence of hemorrhoid surgery and sphincter injury. Patient is on track for prior LLQ ostomy site hernia repair with Dr. Harrison around 21May. - ? GERD: Continue home pantoprazole. - Hypothyroidism: Continue home levothyroxine. - Depression: Continue home citalopram. - Recent left knee swelling: Ortho following. Code status: Full code. (2) Multiple rib fractures: Process related pathological fracture of multiple left-sided ribs (3) Dizziness: (4) Meniere's disease: (5) Acute UTI: (6) Ascending aortic aneurysm: (7) Pulmonary nodules: (8) Anemia: (9) Elevated serum creatinine: (10) Hypomagnesemia: (11) Hypertension: (12) Atrial fibrillation: (13) History of DVT (deep vein thrombosis): (14) Stroke: (15) Hypothyroidism: (16) Depression: Total Time Total Time Spent Total Time Spent (In Minutes): greater than 30 minutes were required to prepare discharge Discharge Plan Discharge Items Patient Disposition: Transfer Care Home Fac Reason For Visit: FALL, RIB FRACTURES Discharge Diagnosis: uti poa, rib fractures from fall Condition: Fair Discharge Goals: Decrease discomfort, Diagnostic testing and Improve disease control Activity: Resume your previous activity Activity Comment: activity per PT OT Non-emergency contact: Primary Care Provider Call non-emergency contact if: you have any medication questions Follow-up/Referrals: ProJason MD [Primary Care Provider] - Diet: Regular Addtl Provider Instructions: please do the best to assure that pills that are small or crushable or liquid medications Prescriptions: New ciprofloxacin 250 mg/5 mL suspension,microcapsule recon 250 mg PO BID 7 Days Qty: 70 RF: 0 tramadol [Ultram] 50 mg tablet 50 mg PO TID PRN (Reason: pain) Qty: 20 RF: 0 Continued multivitamin Tablet 1 tab PO DAILY RF: 0 acetaminophen 325 mg Tablet 650 mg PO BID PRN (Reason: Pain) RF: 0 carvedilol 12.5 mg Tablet 12.5 mg PO BIDM RF: 0 citalopram 40 mg Tablet 40 mg PO DAILY RF: 0 atorvastatin 10 mg Tablet 10 mg PO DAILY RF: 0 diphenoxylate-atropine 2.5-0.025 mg Tablet 1 tab PO DIRECTED RF: 0 clopidogrel 75 mg Tablet 75 mg PO DAILY RF: 0 amlodipine 5 mg Tablet 5 mg PO DAILY RF: 0 levothyroxine 100 mcg Tablet 100 mcg PO DAILY RF: 0 nitroglycerin [Nitrostat] 0.4 mg Tablet, Sublingual 0.4 mg Sublingual DIRECTED PRN (Reason: Chest Pain) RF: 0 cyanocobalamin (vitamin B-12) [Vitamin B-12] 500 mcg Lozenge 500 mcg PO DAILY RF: 0 magnesium oxide 400 mg magnesium Tablet 400 mg PO DAILY RF: 0 pantoprazole 40 mg tablet,delayed release (DR/EC) 40 mg PO DAILY RF: 0 cholecalciferol (vitamin D3) [Vitamin D3] 2,000 unit Capsule 2,000 unit PO DAILY RF: 0 Discontinued trazodone 50 mg Tablet 50 mg PO HS PRN (Reason: Insomnia) RF: 0 lisinopril 10 mg Tablet 5 mg PO HS RF: 0 meclizine 12.5 mg tablet 1 - 2 tabs PO Q8 PRN (Reason: Vertigo) RF: 0 methenamine mandelate 1 gram tablet 1 g PO HS RF: 0 Stand-Alone Forms: [facility] Discharge Orders: Discharge Order (Routine); Ordered 03/06/19 Ordered By: Dong Dorado Skilled Items Patient informed of condition?: Yes DNR: No Discharge Level of Care: Skilled Communicable Disease: No Discharge Prognosis: Stable Admission Data Admit Date/Time: 03/04/19 03:13 Attending Provider: Dong Dorado Admit Provider: Watson Castillo Primary Care Provider: Jason Pike Other Providers: Shahid Ochoa ; Aishwarya Gerardo Service: Medical Other Interventions: Discharge Summary Assessment (RN) Last Done: 03/06/19 13:29
--- NOTE | 2019-03-10 08:41 | Coding Query ---
CODING QUERY To promote full compliance with coding requirements relating to patient care, provider participation is requested in all cases of trick rodeo rider uncertainty. Please assist us with the question(s) below: Please clarify the meaning of ALBERTA. ALBERTA is not a valid abbreviation. Thank you. (xx ) Acute Kidney Injury ( xx ) Present on admission ( ) Not present on admission ( ) Acute Kidney Insufficiency ( ) Present on admission ( xx ) Not present on admission ( ) Other (Specify): Principal Diagnosis: "that condition established after study, to be chiefly responsible for occasioning the admission of the patient to the hospital for care." Co-Existing Principal Diagnosis: "when two or more diagnoses equally meet the criteria for principal diagnosis as determined by the circumstances of admission, diagnostic work up, and/or therapy provided, and the Alphabetic Index, Tabular List, or another coding guideline does not provide sequencing direction, any one of the diagnoses may be sequenced first." "When the physician has documented what appears to be a current diagnosis in the body of the record, but has not included the diagnosis in the final diagnostic statement, the physician should be asked whether the diagnosis should be added." (Source Coding [facility] 2 QTR90. p3-4) JOSE
== END 2019-03-06 15:25 | DRG 543 ==
LOC: ED 22:48 → 3N 03-04 03:13 → SUATTDRO 03-04 03:13 → 3N 03-04 04:03

== ENCOUNTER 2019-03-17 10:47 | Inpatient (IN) ==
[2019-03-17] MEDS ORDERED: TRAMADOL HCL 50 MG TABLET PO STA (11:30)
[2019-03-17 11:48] LABS: Basophils # (auto) 0.04 K/uL (0-0.2); Basophils % (auto) 0.5 %; Eosinophils # (auto) 0.11 K/uL (0-0.5); Eosinophils % (auto) 1.3 %; Hematocrit (blood only) 31.5 % (37-47); Immature Granulocytes # (auto) 0.02 K/uL (0.00-0.02); Immature Granulocytes % (auto) 0.2 %; Lymphocytes # (auto) 1.74 K/uL (1.2-3.4); Lymphocytes % (auto) 20.6 %; Mean Corpuscular Hgb Conc 34.9 g/dL (32-36); Mean Corpuscular Volume 79.5 fL (80-100); Mean Platelet Volume 8.9 fL (7.4-10.4); Monocytes # (auto) 1.05 K/uL (0.11-0.59); Monocytes % (auto) 12.4 %; Neutrophils # (auto) 5.48 K/uL (1.4-6.5); Platelet Count 453 K/uL (130-400); RDW Coefficient of Variation 16.2 % (11.5-14.5); RDW Standard Deviation 47.7 fL (36.4-46.3); Red Blood Count 3.96 M/uL (4.2-5.4); White Blood Count 8.44 K/uL (4.8-10.8)
[2019-03-17 12:04] LABS: Alanine Aminotransferase 17 U/L (12-78); Albumin Level 3.1 gm/dl (3.4-5.0); Aspartate Aminotransferase 18 U/L (15-37); BUN Creatinine Ratio 13.9 (10-20); Blood Urea Nitrogen 18 mg/dl (7-18); Calcium 8.5 mg/dl (8.5-10.1); Carbon Dioxide 29 mmol/L (21-32); Chloride 100 mmol/L (98-107); Creatinine Clr Calc Pharmacy 23.3 ml/min; Glucose 104 mg/dl (70-99); Potassium 3.2 mmol/L (3.5-5.1); Sodium 136 mmol/L (136-145)
--- NOTE | 2019-03-17 12:08 | Emergency Department Note ---
History of Present Illness General Chief complaint: Fall Stated complaint: FALL, HIT HEAD Time Seen by Provider: 03/17/19 11:12 History of Present Illness Maximum Pain Intensity: 8 This is an 84-year-old female who presents to the emergency department via private vehicle with complaints of "fall, hit head". The patient notes that she has had several falls over the past few years. The daughter at bedside is also concerned because of her frequent falls. She was seen here about 2 weeks ago and fell, and was diagnosed with several left-sided rib fractures. She was admitted at that time and then sent to [facility]. She was discharged from there yesterday. They note that she had one fall prior to leaving as well as one today while at home. She lives by herself and HER-2 small dogs. She notes that while in the bathroom today she was standing up and was going to administer insulin to her dog when she became lightheaded and then fell. She notes that she felt dizzy at that time. She struck the top of the head as well as left hip. She notes pain in these regions. She also notes some shortness of breath but does state that she has these rib fractures on the left side. She also takes a thinner. She rates her overall pain is a 7/10. No loss of consciousness. The falls are not new for her. Home Medications Home Medications Medication Instructions Recorded Confirmed Type acetaminophen 650 mg PO BID PRN 09/29/18 03/17/19 History amlodipine 5 mg PO QAM 09/29/18 03/17/19 History atorvastatin 10 mg PO QAM 09/29/18 03/17/19 History carvedilol 12.5 mg PO BIDM 09/29/18 03/17/19 History citalopram 40 mg PO QAM 09/29/18 03/17/19 History clopidogrel 75 mg PO QAM 09/29/18 03/17/19 History cyanocobalamin (vitamin B-12) 500 mcg PO QAM 09/29/18 03/17/19 History [Vitamin B-12] diphenoxylate-atropine 1 tab PO DIRECTED 09/29/18 03/17/19 History levothyroxine 100 mcg PO QAM 09/29/18 03/17/19 History magnesium oxide 400 mg PO QAM 09/29/18 03/17/19 History multivitamin 1 tab PO QAM 09/29/18 03/17/19 History nitroglycerin [Nitrostat] 0.4 mg SUBLINGUAL DIRECTED PRN 09/29/18 03/17/19 History cholecalciferol (vitamin D3) 2,000 unit PO QAM 03/04/19 03/17/19 History [Vitamin D3] pantoprazole 40 mg PO QAM 03/04/19 03/17/19 History tramadol [Ultram] 50 mg PO TID PRN #20 tab 03/06/19 03/17/19 Rx lisinopril 5 mg PO QAM 03/17/19 03/17/19 History meclizine 12.5 mg PO Q8H PRN 03/17/19 03/17/19 History methenamine mandelate 1 g PO QAM 03/17/19 03/17/19 History Allergies Allergy/AdvReac Type Severity Reaction Status Date / Time adhesive tape Allergy Severe SKIN Verified 03/17/19 13:09 IRRITATION cashew nut Allergy Severe Hives Verified 03/17/19 13:09 shellfish derived Allergy Severe SOB Verified 03/17/19 13:09 Sulfa (Sulfonamide Allergy Severe Hives Unverified 03/17/19 13:09 Antibiotics) Past Med/Surg History Medical History Failure to thrive IBS (irritable bowel syndrome) CVA, old, dysphagia Depression Hypothyroidism History of DVT (deep vein thrombosis) Atrial fibrillation Hypomagnesemia Anemia Pulmonary nodules Ascending aortic aneurysm Multiple rib fractures (Acute) Fall (Acute) Stroke (Chronic) Hypertension (Chronic) A-fib (Chronic) Crohn's disease (Chronic) Surgical History S/P colectomy Family History Other Family history non-contributory Social History Preferred Language: Croatian Communication Ability: Effective Cross Cut Sawyer Required: No Beliefs That Will Affect Care: None marital status: / Current Living Situation: Alone Current Living Situation Comment: Intermediate Other Information That Helps Us Care for You: No Feels Safe at Home: Yes Safety Concerns: Feels Safe At This Time Smoking Status: Never smoker Do You Dip or Chew Tobacco: No Second Hand Exposure: No Tobacco Cessation Education Requested by Patient: No Hx Alcohol Use: No Hx Substance Use: No Review of Systems A total of 10 systems reviewed and were otherwise negative Physical Exam Vital Signs Vital Signs - 24 hr 03/17/19 10:53 03/17/19 12:24 03/17/19 12:55 Temperature 36.5 C Temperature Source Oral Sepsis Recent Fever Within 48 Hours No Sepsis New/Unexplained Change in Mental Status No Sepsis Action Taken by Nursing No Action Required Pulse Rate - Lying 77 Pulse Rate - Sitting 78 Pulse Rate 84 Pulse Rate [Left Finger] 86 Pulse Rhythm Regular Pulse Strength Normal Respiratory Rate 20 Respiratory Effort / Characteristics Non-Labored Spontaneous Respiratory Depth Normal Respiratory Pattern Regular Blood Pressure - Lying 153/77 H Blood Pressure - Sitting 149/68 H Blood Pressure 123/63 Blood Pressure [Right Arm] 148/77 H Blood Pressure Mean 83 Blood Pressure Mean [Right Arm] 100 Blood Pressure Position Sitting Blood Pressure Position [Right Arm] Sitting Pulse Oximetry 94 95 Oxygen Delivery Method Room Air Room Air VITAL SIGNS - Vital signs and nursing notes were reviewed. Hypertensive, otherwise stable. GENERAL - 84-year-old female appearing her stated age who is in no acute distress. Communicates well with provider and answers questions appropriately. SKIN - Without rashes. No meningeal or petechial rash. HEAD - NC/AT. Small contusion to the head, without any evidence of contusion overlying the left hip. EYES - PERRL with EOMI bilaterally. Sclera anicteric. EARS - No deformities of external structures noted on gross examination bilaterally. No hemotympanum. NOSE - Midline and without cyanosis. No epistaxis or purulent drainage noted. Septum midline without deviation or septal hematoma noted. MOUTH/OROPHARYNX - Without perioral cyanosis. NECK - Neck with FROM. Supple to palpation. No lymphadenopathy noted. No nuchal rigidity. LUNGS - Chest wall symmetric without accessory muscle use, intercostals retractions, or central cyanosis. Normal vesicular breath sounds CTA B/L. No wheezes, rales, or rhonchi appreciated. CARDIAC - RRR ABDOMEN - Abdominal contour normal without pulsations or visible masses. BS normoactive all four quadrants. No tenderness, palpable masses, hepatosplenomegaly, or ascites noted. EXTREMITIES - No clubbing or peripheral cyanosis. No pretibial edema present. Left hip tenderness to palpation. +5/5 strength noted in UE/LE bilaterally. NEUROLOGIC - Cranial nerves II through XII grossly intact. Sensory intact to light touch throughout. Patellar reflexes +2/4. PSYCH - A&O, and cooperates fully with examiner. Pt is very pleasant and interacts well with examiner. Course Administered Medications Carvedilol (Coreg) 12.5 mg PO BIDM ANN MARIE Stop: 04/16/19 16:59 Last Admin: 03/17/19 17:30 Dose: 12.5 mg Documented by: [id number] Sodium Chloride (Nss 1000ml) 1,000 mls @ 80 mls/hr IV .[id number] ANN MARIE Stop: 03/18/19 03:23 Last Admin: 03/17/19 17:30 Dose: 80 mls/hr Documented by: [id number] Discontinued Medications Tramadol HCl (Ultram) 50 mg PO NOW STA Stop: 03/17/19 11:31 Last Admin: 03/17/19 11:52 Dose: 50 mg Documented by: [id number] Medical Decision Making Laboratory Data Result diagrams: 03/17/19 11:30 03/17/19 11:30 Lab Results 03/17/19 03/17/19 03/17/19 Range/Units 11:30 11:30 12:20 WBC 8.44 (4.8-10.8) K/uL RBC 3.96 L (4.2-5.4) M/uL Hgb 11.0 L (12.0-16.0) g/dL Hct 31.5 L (37-47) % MCV 79.5 L (80-100) fL MCH 27.8 (25-34) pg MCHC 34.9 (32-36) g/dL RDW Std Deviation 47.7 H (36.4-46.3) fL RDW Coeff of Heladio 16.2 H (11.5-14.5) % Plt Count 453 H (130-400) K/uL MPV 8.9 (7.4-10.4) fL Immature Gran % (Auto) 0.2 % Neut % (Auto) 65.0 % Lymph % (Auto) 20.6 % [place] % (Auto) 12.4 % Eos % (Auto) 1.3 % Baso % (Auto) 0.5 % Immature Gran # (Auto) 0.02 (0.00-0.02) K/uL Neut # (Auto) 5.48 (1.4-6.5) K/uL Lymph # (Auto) 1.74 (1.2-3.4) K/uL [place] # (Auto) 1.05 H (0.11-0.59) K/uL Eos # (Auto) 0.11 (0-0.5) K/uL Baso # (Auto) 0.04 (0-0.2) K/uL Sodium 136 (136-145) mmol/L Potassium 3.2 L (3.5-5.1) mmol/L Chloride 100 (98-107) mmol/L Carbon Dioxide 29 (21-32) mmol/L Anion Gap 7.0 (3-11) BUN 18 (7-18) mg/dl Creatinine 1.29 H (0.6-1.2) mg/dl Est Cr Clr Drug Dosing 23.3 ml/min Est GFR ( Amer) 44.0 Est GFR (Non-Af Amer) 38.0 BUN/Creatinine Ratio 13.9 (10-20) Glucose 104 H (70-99) mg/dl Calcium 8.5 (8.5-10.1) mg/dl Total Bilirubin 0.6 (0.2-1) mg/dl AST 18 (15-37) U/L ALT 17 (12-78) U/L Alkaline Phosphatase 145 H (45-117) U/L Troponin I < 0.015 (0-0.045) ng/ml Total Protein 6.7 (6.4-8.2) gm/dl Albumin 3.1 L (3.4-5.0) gm/dl Globulin 3.6 (2.5-4.0) gm/dl Albumin/Globulin Ratio 0.9 (0.9-2) Urine Color Yellow Urine Appearance Clear (Clear) Urine pH 7.5 (4.5-7.5) Ur Specific Henning 1.009 (1.000-1.030) Urine Protein Negative (Negative) Urine Glucose (UA) Negative (Negative) Urine Ketones Negative (Negative) Urine Blood Negative (Negative) Urine Nitrite Negative (Negative) Urine Bilirubin Negative (Negative) Urine Urobilinogen Negative (Negative) Ur Leukocyte Esterase Trace H (Negative) Urine WBC (Auto) 1-5 (0-5) /hpf Urine RBC (Auto) 0-4 (0-4) /hpf U Hyaline Cast (Auto) 1-5 (0-5) /lpf U Epithel Cells (Auto) >30 H (0-5) /lpf Urine Bacteria (Auto) Negative (Negative) Imaging Data Radiologist's Impression: HEAD CT NONCONTRAST CT DOSE: HISTORY: Fall, head trauma, pain, neck pain TECHNIQUE: Multiaxial CT images of the head were performed without the use of intravenous contrast. Automated exposure control was utilized for this study. A dose lowering technique was utilized adhering to the principles of ALARA. Comparison: Head CT 03/03/2019. Findings: The paranasal sinuses and mastoid air cells are clear. The calvarium and skull base are intact. There is no mass, hematoma, midline shift, acute infarct. White matter hypodensity is nonspecific but suggestive of microvascular ischemic change. The ventricles and sulci demonstrate mild age-related involutional changes. Old bilateral basal ganglia infarcts are again noted. Mild left lateral scalp swelling. Impression: No acute intracranial abnormality. Old bilateral basal ganglia infarcts remain unchanged. Mild left lateral scalp swelling. Electronically signed by: Hardeep Tang M.D. 03/17/2019 1:[address] DOSE: 795.59 mGy.cm HISTORY: Fall, head trauma, pain, neck pain TECHNIQUE: Multiaxial CT images of the cervical spine were performed and reformatted in the sagittal and coronal plane without the use of contrast. A dose lowering technique was utilized adhering to the principles of ALARA. COMPARISON: Cervical spine CT 03/03/2019. FINDINGS: No fractures. Mild stepwise anterolisthesis of C3 on C4 and C4 on C5, unchanged. Moderate to severe degenerative changes are again noted.. Prevertebral soft tissues and the C1-C2 interval are intact. No pneumothorax. IMPRESSION: No fractures within the cervical spine. Electronically signed by: Hradeep Tang M.D. 03/17/2019 1:12 PM XR chest 1V portable HISTORY: Fall, trauma, hx rib fx COMPARISON: Chest 03/05/2019. FINDINGS: There are multiple displaced left-sided rib fractures again noted. No pneumothorax. No pleural effusions. The heart is normal in size. Left-sided pacemaker is noted. Vertebroplasty within the lower thoracic spine. IMPRESSION: Redemonstration of the multiple displaced left-sided rib fractures. No pneumothorax. Electronically signed by: Hardeep Tang M.D. 03/17/2019 12:23 PM XR femur LT 2V routine, XR pelvis 1-2V routine CLINICAL HISTORY: fall, left hip pain COMPARISON STUDY: None. FINDINGS: Posterior decompression and fusion at L3-L5. The hardware appears intact. An IVC filter is noted. Right lower quadrant ostomy. No acute fracture or dislocation within the pelvis or hips. The sacrum appears intact. Vascular calcifications are noted. No fracture or dislocation within the left femur. IMPRESSION: No acute fracture or dislocation within the pelvis, hips, or left femur. Electronically signed by: Hardeep Tang M.D. 03/17/2019 12:29 PM MDM Narrative Patient was seen and evaluated as above in room A4. Review was performed of nursing notes and vital signs. After obtaining a thorough history and physical examination the above work up was performed. She presents to us today status post another fall. She is nontoxic on exam but does appear to be in pain. Unfortunately, the patient has had multiple falls. At this point I do not believe she is safe at home by herself. I did elect to obtain CT scans of her head and neck to evaluate for trauma as well as chest x-ray and x-rays of the pelvis and hip. Results as above. These are negative for emergent acute process. Her EKG reveals normal sinus rhythm, rate of 73 bpm. This was compared to the EKG performed on March 03, 2019 and at this time no significant change has been identified. CBC reveals no leukocytosis. Minimal improving a nemia noted. Hypokalemia. Slight elevation of creatinine 1.29. Urinalysis reveals no evidence of UTI compared to previous. I do believe that given her state that further evaluation and management in the inpatient setting is warranted with and likely placement to a facility. Case discussed with the hospitalist as well as the attending physician. Please refer to further documentation regarding her stay I attest that I have personally reviewed the patient medication list. I attest that I have reviewed the patient's blood pressure and it was found to be normal GCS: 15 In the evaluation and treatment of this patient, the following differential diagnoses were considered: Concussion, Contrecoup Injury, Brain Tumor, Depression, Encephalitis, Hypothyroidism, Meningitis, CVA, TIA, Migraine, Cluster Headache, Intracranial Abnormality, Intracranial Hemorrhage, Subdural Hematoma, Subarachnoid Hemorrhage, Hydrocephalus, Musculoskeletal Strain, Discitis, Cervical Spine Fracture, Cervical Spine Dislocation, Cervical Spine Subluxation, Cervical Spondylosis, Fibromyalgia, Osteoarthritis, Polymyalgia Rheumatica, Psychogenic Pain Disorder, Tumor of Soft Tissue or Spine, UTI, among others. Impression & Plan Fall, Dizziness Discharge Plan Visit Data *Final* Discharge Date/Time: 03/17/19 15:02 Chief Complaint: Fall Stated Complaint: FALL, HIT HEAD ED Provider: Krish Munoz ED Midlevel Provider: Andrew Hess Discharge Problem: Fall, Dizziness Patient Disposition: Admitted As Inpatient Condition: Fair Discharge Instructions Interventions: ED Discharge Assessment Last Done: 03/17/19 15:02
[2019-03-17 12:09] LABS: Albumin Globulin Ratio 0.9 (0.9-2); Alkaline Phosphatase 145 U/L (45-117); Bilirubin,Total 0.6 mg/dl (0.2-1); Globulin 3.6 gm/dl (2.5-4.0); Total Protein 6.7 gm/dl (6.4-8.2); Troponin I < 0.015 ng/ml (0-0.045)
--- NOTE | 2019-03-17 12:25 | XRay Report ---
XR chest 1V portable HISTORY: Fall, trauma, hx rib fx COMPARISON: Chest 03/05/2019. FINDINGS: There are multiple displaced left-sided rib fractures again noted. No pneumothorax. No pleu ral effusions. The heart is normal in size. Left-sided pacemaker is noted. Vertebroplasty within the lower thoracic spine. IMPRESSION: Redemonstration of the multiple displaced left-sided rib fractures. No pneumothorax. Electronically signed by: Hardeep Tang M.D. 03/17/2019 12:23 PM
[2019-03-17 12:31] LABS: Appearance Urine Clear (Clear); Bacteria Urine Automated Negative (Negative); Bilirubin Urine Negative (Negative); Blood Urine Negative (Negative); Color Urine Yellow; Epithelial Cell Urine Auto >30 /lpf (0-5); Glucose Urine UA Negative (Negative); Ketones Urine Negative (Negative); Leukocyte Esterase Urine Trace (Negative); Nitrite Urine Negative (Negative); Protein Urine Negative (Negative); RBC Urine Automated 0-4 /hpf (0-4); Specific Gravity Urine 1.009 (1.000-1.030); Urobilinogen Urine Negative (Negative); pH Urine 7.5 (4.5-7.5)
--- NOTE | 2019-03-17 12:31 | XRay Report ---
XR femur LT 2V routine, XR pelvis 1-2V routine CLINICAL HISTORY: fall, left hip pain COMPARISON STUDY: None. FINDINGS: Posterior decompression and fusion at L3-L5. The hardware appears intact. An IVC filter is noted. Right lower quadrant ostomy. No acute fracture or dislocation within the pelvis or hips. The s acrum appears intact. Vascular calcifications are noted. No fracture or dislocation within the left f emur. IMPRESSION: No acute fracture or dislocation within the pelvis, hips, or left femur. Electronically signed by: Hardeep Tang M.D. 03/17/2019 12:29 PM
--- NOTE | 2019-03-17 13:09 | CT Scan Report ---
HEAD CT NONCONTRAST CT DOSE: HISTORY: Fall, head trauma, pain, neck pain TECHNIQUE: Multiaxial CT images of the head were performed without the use of intravenous contrast. A utomated exposure control was utilized for this study. A dose lowering technique was utilized adheri ng to the principles of ALARA. Comparison: Head CT 03/03/2019. Findings: The paranasal sinuses and mastoid air cells are clear. The calvarium and skull base are int act. There is no mass, hematoma, midline shift, acute infarct. White matter hypodensity is nonspecifi c but suggestive of microvascular ischemic change. The ventricles and sulci demonstrate mild age-rela lion involutional changes. Old bilateral basal ganglia infarcts are again noted. Mild left lateral sca lp swelling. Impression: No acute intracranial abnormality. Old bilateral basal ganglia infarcts remain unchanged. Mild left l ateral scalp swelling. Electronically signed by: Hardeep Tang M.D. 03/17/2019 1:07 PM
--- NOTE | 2019-03-17 13:13 | CT Scan Report ---
CERVICAL SPINE CT CT DOSE: 795.59 mGy.cm HISTORY: Fall, head trauma, pain, neck pain TECHNIQUE: Multiaxial CT images of the cervical spine were performed and reformatted in the sagittal and coronal plane without the use of contrast. A dose lowering technique was utilized adhering to th e principles of ALARA. COMPARISON: Cervical spine CT 03/03/2019. FINDINGS: No fractures. Mild stepwise anterolisthesis of C3 on C4 and C4 on C5, unchanged. Moderate t o severe degenerative changes are again noted.. Prevertebral soft tissues and the C1-C2 interval are intact. No pneumothorax. IMPRESSION: No fractures within the cervical spine. Electronically signed by: Hardeep Tang M.D. 03/17/2019 1:12 PM
--- NOTE | 2019-03-17 13:41 | History & Physical Report ---
Date of Service March 17, 2019 Assessment & Plan (1) Failure to thrive: (2) Fall: -Admit to [facility] on observation -PT/OT consults -Fall precautions -We will order boost supplementation, heart healthy diet, NSS at 80 mL/h x 12 hr, encourage p.o. intake. -CM consulted, patient was discharged from [facility] yesterday. Patient does not wish to return to this facility. Will ask for further recommendations regarding PT/OT outpatient versus SNF placement. Patient does live from home an d would be unsafe to return there at this point in time. -Patient with complaints of fine tremor which developed over the past 2 weeks, possibly adding to frequent falls, will check a B12 level, monitor. No recent medication changes or dosage changes. -Imaging was reviewed as above, noting multiple left-sided rib fractures as well as the old bilateral basal ganglia infarcts remain unchanged on head CT, along with mild left lateral scalp swelling. -Weight loss of 5 pounds within the last 2 to 3 weeks per patient report (3) Atrial fibrillation: -Paroxysmal -Pacemaker -Follows with cardiology as outpatient, patient has been having complaints of lightheadedness and with recent falls - consider consultation. The patient has not been interested in surgical correction of severe aortic stenosis in the past. (4) Ascending aortic aneurysm: - Noted stable, 4cm dilation noted on Ct of the chest on 03/04/19. (5) Multiple rib fractures: - Left sided s/p recent fall 2 weeks ago - Continue tramadol for pain, working well per pt. (6) Hypomagnesemia: - Cont supplementation (7) Hypothyroidism: -Continue levothyroxine 100 mcg daily (8) Depression: -Continue citalopram 40 mg daily (9) Anemia: -Of chronic disease (10) Pulmonary nodules: -Noted follows with pulmonology and CT as outpatient (11) History of DVT (deep vein thrombosis): (12) IBS (irritable bowel syndrome): (13) Crohn's disease: -History of colectomy, colostomy bag in RLQ -order Dulcolax p.o. 5 mg twice daily, MiraLAX p.o. daily to aid in constipation (14) S/P colectomy: -Noted (15) CVA, old, dysphagia: - Residual right sided weakness and dysphagia. -Patient was working with speech therapy at recent stay at [facility]. 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 The patient had fallen two weeks ago and suffered multiple left sided rib fractures. She reports becoming dizzy when going from a sitting to standing position. Pt notes this morning she was cleaning up after one of her dogs inside her home, and fell due to inability to balance. She was not using a walker this morning, although has one in her home. She lives alone, although a daughter and son in law frequently come to check on her. The patient was discharged from [facility] yesterday as ran out of insurance funding for more PT/OT. Her family does not think she is safe to return home. Of note, the patient was eating and drinking poorly at SNF d/t not liking the food. She has recently developed a fine tremor in her hands and feet in the past week which is bothersome. Pt also notes her stool is very hard through the colostomy and has not had a soft BM in over 1 week. Allergies Allergy/AdvReac Type Severity Reaction Status Date / Time adhesive tape Allergy Severe SKIN Verified 03/17/19 13:09 IRRITATION cashew nut Allergy Severe Hives Verified 03/17/19 13:09 shellfish derived Allergy Severe SOB Verified 03/17/19 13:09 Sulfa (Sulfonamide Allergy Severe Hives Unverified 03/17/19 13:09 Antibiotics) Home Medications Home Medications Medication Instructions Recorded Confirmed Type acetaminophen 650 mg PO BID PRN 09/29/18 03/17/19 History amlodipine 5 mg PO QAM 09/29/18 03/17/19 History atorvastatin 10 mg PO QAM 09/29/18 03/17/19 History carvedilol 12.5 mg PO BIDM 09/29/18 03/17/19 History citalopram 40 mg PO QAM 09/29/18 03/17/19 History clopidogrel 75 mg PO QAM 09/29/18 03/17/19 History cyanocobalamin (vitamin B-12) 500 mcg PO QAM 09/29/18 03/17/19 History [Vitamin B-12] diphenoxylate-atropine 1 tab PO DIRECTED 09/29/18 03/17/19 History levothyroxine 100 mcg PO QAM 09/29/18 03/17/19 History magnesium oxide 400 mg PO QAM 09/29/18 03/17/19 History multivitamin 1 tab PO QAM 09/29/18 03/17/19 History nitroglycerin [Nitrostat] 0.4 mg SUBLINGUAL DIRECTED PRN 09/29/18 03/17/19 History cholecalciferol (vitamin D3) 2,000 unit PO QAM 03/04/19 03/17/19 History [Vitamin D3] pantoprazole 40 mg PO QAM 03/04/19 03/17/19 History tramadol [Ultram] 50 mg PO TID PRN #20 tab 03/06/19 03/17/19 Rx lisinopril 5 mg PO QAM 03/17/19 03/17/19 History meclizine 12.5 mg PO Q8H PRN 03/17/19 03/17/19 History methenamine mandelate 1 g PO QAM 03/17/19 03/17/19 History Past Med/Surg History Medical History Failure to thrive IBS (irritable bowel syndrome) CVA, old, dysphagia Depression Hypothyroidism History of DVT (deep vein thrombosis) Atrial fibrillation Hypomagnesemia Anemia Pulmonary nodules Ascending aortic aneurysm Multiple rib fractures (Acute) Fall (Acute) Stroke (Chronic) Hypertension (Chronic) A-fib (Chronic) Crohn's disease (Chronic) Surgical History S/P colectomy Social History Preferred Language: Chinese Communication Ability: Effective Beliefs That Will Affect Care: None marital status: / Current Living Situation: Alone Current Living Situation Comment: [facility] Feels Safe at Home: Yes Smoking Status: Never smoker Second Hand Exposure: Yes Hx Alcohol Use: No Hx Substance Use: No Review of Systems Review of Systems: Constitutional: No fever, sweats or chills, + dizziness Eyes: No diplopia, no worsening or blurred vision ENT: normal hearing, + dysphagia s/p CVA Respiratory: No cough, sputum, dyspnea at rest or on exertion, + Pain with deep breaths d/t rib fx. Cardiovascular: No chest pain, tightness or palpitations Abdomen: + poor appetite, + constipation, no pain, nausea, vomiting, diarrhea Musculoskeletal: No joint pain, calf pain, swelling Neurologic: + gait disturbance, + weakness, + balance problems. No numbness/tingling Psychiatric: + depression controlled on meds, no anxiety Skin: No rash or itch Physical Exam Physical Exam: General: awake, alert, no apparent distress, thin Head: Normocephalic, atraumatic ENT: PERRL, EOMI, no pharyngeal exudate, mucous membranes slightly dry Chest: Clear to auscultation, on room air, no adventitious breath sounds Cardiac: Regular rate and rhythm, mild systolic murmur, no JVD, normal peripheral pulses, good capillary refill Abdominal: NABS x 4 quadrants, + colostomy bag in RLQ with small hard stool present, large abdominal hernia in the LLQ, non-reducible, nontender to palpation, no rebound, guarding or tenderness Extremities: Normal inspection, no peripheral edema or erythema, calfs nontender to palpation Psych: Normal mood and affect Neuro: AAO x 3, no motor deficits, speech is clear Results & Data Vital Signs (Past 12 Hours) Vital Signs Temp Pulse Pulse Resp BP BP Pulse Ox 03/17/19 12:24 86 148/77 H 95 03/17/19 10:53 36.5 C 84 20 123/63 94 Diagnostic Findings XR femur LT 2V routine, XR pelvis 1-2V routine CLINICAL HISTORY: fall, left hip pain COMPARISON STUDY: None. FINDINGS: Posterior decompression and fusion at L3-L5. The hardware appears intact. An IVC filter is noted. Right lower quadrant ostomy. No acute fracture or dislocation within the pelvis or hips. The sacrum appears intact. Vascular calcifications are noted. No fracture or dislocation within the left femur. IMPRESSION: No acute fracture or dislocation within the pelvis, hips, or left femur. HEAD CT NONCONTRAST CT DOSE: HISTORY: Fall, head trauma, pain, neck pain TECHNIQUE: Multiaxial CT images of the head were performed without the use of intravenous contrast. Automated exposure control was utilized for this study. A dose lowering technique was utilized adhering to the principles of ALARA. Comparison: Head CT 03/03/2019. Findings: The paranasal sinuses and mastoid air cells are clear. The calvarium and skull base are intact. There is no mass, hematoma, midline shift, acute infarct. White matter hypodensity is nonspecific but suggestive of microvascular ischemic change. The ventricles and sulci demonstrate mild age-related involutional changes. Old bilateral basal ganglia infarcts are again noted. Mild left lateral scalp swelling. Impression: No acute intracranial abnormality. Old bilateral basal ganglia infarcts remain unchanged. Mild left lateral scalp swelling. XR femur LT 2V routine, XR pelvis 1-2V routine CLINICAL HISTORY: fall, left hip pain COMPARISON STUDY: None. FINDINGS: Posterior decompression and fusion at L3-L5. The hardware appears intact. An IVC filter is noted. Right lower quadrant ostomy. No acute fracture or dislocation within the pelvis or hips. The sacrum appears intact. Vascular calcifications are noted. No fracture or dislocation within the left femur. IMPRESSION: No acute fracture or dislocation within the pelvis, hips, or left femur. XR chest 1V portable HISTORY: Fall, trauma, hx rib fx COMPARISON: Chest 03/05/2019. FINDINGS: There are multiple displaced left-sided rib fractures again noted. No pneumothorax. No pleural effusions. The heart is normal in size. Left-sided pacemaker is noted. Vertebroplasty within the lower thoracic spine. IMPRESSION: Redemonstration of the multiple displaced left-sided rib fractures. No pneumothorax. CERVICAL SPINE CT CT DOSE: 795.59 mGy.cm HISTORY: Fall, head trauma, pain, neck pain TECHNIQUE: Multiaxial CT images of the cervical spine were performed and reformatted in the sagittal and coronal plane without the use of contrast. A dose lowering technique was utilized adhering to the principles of ALARA. COMPARISON: Cervical spine CT 03/03/2019. FINDINGS: No fractures. Mild stepwise anterolisthesis of C3 on C4 and C4 on C5, unchanged. Moderate to severe degenerative changes are again noted.. Prevertebral soft tissues and the C1-C2 interval are intact. No pneumothorax. IMPRESSION: No fractures within the cervical spine. ECG Additional Comments: 17-MAR-2019 11:33:58 [facility]-EDSTAT ROUTINE RETRIEVAL Poor data quality, interpretation may be adversely affected Normal sinus rhythm Left axis deviation Pulmonary disease pattern Septal infarct , age undetermined Abnormal ECG When compared with ECG of 03-MAR-2019 23:14, Septal infarct is now Present Nonspecific T wave abnormality now evident in Lateral leads QT has shortened 25mm/s 10mm/mV 150Hz 9.0.8 12SL 241 LUDMILA: 11 Unconfirmed Vent. rate 73 BPM GA interval 162 ms QRS duration 90 ms QT/QTc 330/363 ms P-R-T axes 82 -40 83 Code Status & VTE Plan Code Status DNR-discussed with daughter and son-in-law at bedside Supervising Physician Co-Signing Physician Notes The patient was seen and examined by me. I agree with the assessment and plan. She has suffered multiple falls recently with failure to thrive. She was recently discharged from [facility] lungs are clear to auscultation percussion. Cardiac exam reveals regular rhythm with grade 1/6 systolic murmur at the apex negative S3. Abdomen is soft with normal bowel sounds. Extremities reveal no significant edema or cyanosis. She will need occupational therapy and physical therapy assessments with case management intervention and eventual placement. (1) Multiple rib fractures Encounter type: initial encounter Fracture type: closed Laterality: left Qualified Code(s): S22.42XA - Multiple fractures of ribs, left side, initial encounter for closed fracture
[2019-03-17] MEDS ORDERED: ONDANSETRON INJ 2 MG/ML 2 ML VIAL IV PRN (14:18)
[2019-03-17] MEDS ORDERED: ACETAMINOPHEN 325 MG TAB PO PRN ×2 (14:18→15:24)
[2019-03-17] MEDS ORDERED: NITROGLYCERIN SL 0.4 MG/TAB TAB SL PRN (15:24)
[2019-03-17] MEDS ORDERED: SODIUM CHLORIDE 0.9% 1000ML 1,000 ML IV SCH (15:24)
[2019-03-17] MEDS ORDERED: BISACODYL 5 MG TABEC PO PRN (15:24)
[2019-03-17] MEDS ORDERED: MECLIZINE 12.5 MG TAB PO PRN (15:24)
[2019-03-17] MEDS ORDERED: DIPHENOXYLATE/ATROPINE 2.5/0.025MG TAB PO PRN (17:00)
[2019-03-17] MEDS: CARVEDILOL 12.5 MG TAB PO SCH (17:30)
[2019-03-18] MEDS: TRAMADOL HCL 50 MG TABLET PO PRN ×3 (01:22→21:19)
[2019-03-18] MEDS: LEVOTHYROXINE SODIUM 100 MCG TABLET PO SCH (06:08)
[2019-03-18 06:44] LABS: Hematocrit (blood only) 33.5 % (37-47); Hemoglobin 11.2 g/dL (12.0-16.0); Mean Corpuscular Hgb Conc 33.4 g/dL (32-36); Mean Corpuscular Volume 81.3 fL (80-100); Mean Platelet Volume 9.3 fL (7.4-10.4); Platelet Count 495 K/uL (130-400); RDW Coefficient of Variation 16.5 % (11.5-14.5); RDW Standard Deviation 49.1 fL (36.4-46.3); Red Blood Count 4.12 M/uL (4.2-5.4)
[2019-03-18 07:15] LABS: Albumin Level 3.1 gm/dl (3.4-5.0); BUN Creatinine Ratio 11.8 (10-20); Calcium 8.6 mg/dl (8.5-10.1); Creatinine Clr Calc Pharmacy 27.1 ml/min; Est GFR (African American) 52.8; Est GFR (Non-African American) 45.6; Potassium 3.1 mmol/L (3.5-5.1)
[2019-03-18 07:18] LABS: Albumin Globulin Ratio 0.9 (0.9-2); Bilirubin,Total 0.5 mg/dl (0.2-1); Globulin 3.5 gm/dl (2.5-4.0); Total Protein 6.6 gm/dl (6.4-8.2)
[2019-03-18] MEDS: CARVEDILOL 12.5 MG TAB PO SCH ×2 (07:25→18:09)
[2019-03-18] MEDS: CHOLECALCIFEROL 1,000 UNITS TAB PO SCH (08:47)
[2019-03-18] MEDS: POLYETHYLENE (MIRALAX) 17 GM PACK PO SCH (08:47)
[2019-03-18] MEDS: MAGNESIUM OXIDE 400 MG TAB PO SCH (08:47)
[2019-03-18] MEDS: CITALOPRAM 40 MG TAB PO SCH (08:48)
[2019-03-18] MEDS: PANTOprazole 40 MG TAB PO SCH (08:48)
[2019-03-18] MEDS: ATORVASTATIN 10 MG TAB PO SCH (08:48)
[2019-03-18] MEDS: METHENAMINE HIPPURATE 1 GM TAB PO SCH (08:48)
[2019-03-18] MEDS: AMLODIPINE BESYLATE 5 MG TAB PO SCH (08:49)
[2019-03-18] MEDS: LISINOPRIL 5 MG TAB PO SCH (08:49)
[2019-03-18] MEDS: CLOPIDOGREL BISULFATE 75 MG TAB PO SCH (08:49)
[2019-03-18] MEDS ORDERED: CYANOCOBALAMIN 500 MCG TABLET (VITAMIN B-12) PO SCH (09:00)
[2019-03-18] MEDS ORDERED: MULTIVITAMIN TAB PO SCH (09:00)
--- NOTE | 2019-03-18 11:19 | Hospitalist Progress Note ---
Date of Service March 18, 2019 Assessment & Plan (1) Failure to thrive: Patient was discharged from [facility] on 03/16, but she reports she fell there and cannot manage at home. - PT/OT consults - Fall precautions - CM consulted - Will need placement (2) Fall: Likely multifactorial falls at home and at [facility] Weakness, dizziness (from reported Meniere's disease) likely contributing. B12 > 2000 ruling out B12 deficiency as contributor. - PT/OT as above (3) Multiple rib fractures: Left sided s/p recent fall 2 weeks ago. - Continue tramadol for pain, working well per pt. (4) Atrial fibrillation: Paroxysmal. has pacemaker. Follows with cardiology as outpatient. - Continue carvedilol 12.5mg PO BID - Not on anticoagulation due to frequent falls. (5) Ascending aortic aneurysm: - Noted stable, 4 cm dilation noted on CT chest on 03/04/19. (6) Hypothyroidism: TSH was 2.1 in last admission. No signs/symptoms of hypo-/hyperthyroidism. - Continue levothyroxine 100 mcg daily (7) Depression: Somewhat downcast mood. - Continue citalopram 40 mg daily (8) Crohn's disease: History of colectomy, colostomy bag in Q. - Now with constipation - ordered Dulcolax BID & Miralax daily - Will discuss with colleagues re: stool ball near ostomy site 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 Patient was working with speech therapy at recent stay at [facility] - Speech therapy eval ordered (10) History of DVT (deep vein thrombosis): Per notes, it was in the right leg. Unclear when this was. - Makes her a higher VTE risk patient (11) DVT prophylaxis: - TEDs, SCDs, Plavix Subjective With some pain in the rib area and constipation from her ostomy. Review of Systems Review of Systems: All systems reviewed & are unremarkable except as noted in HPI & below Physical Exam Constitutional: WD/WN, vitals as above Eyes: EOM intact bilaterally; no conjunctival abnormality ENMT: external ear and nose normal, oropharynx normal Neck: trachea midline, no thyromegaly normal visual inspection Respiratory: normal respiratory effort, lungs clear to auscultation no respiratory distress Cardiovascular: RRR, no murmur, no edema Gastrointestinal (Abdomen): Inspection/Auscultation: abdomen normal to inspection (Ostomy with harder, brown stool) and normal bowel sounds; abdomen not distended Percussion/Palpation: abdomen soft; abdomen nontender, no guarding and abdomen not rigid Musculoskeletal: no cyanosis or clubbing, extremities motor strength 5/5 Skin: no rashes, warm and dry Neurologic: moves all extremities and awake Psychiatric: Orientation: alert, oriented to person and cooperative Results & Data Vital Signs (Past 12 Hours) Vital Signs Temp Pulse Pulse Resp BP Pulse Ox 03/18/19 08:00 90 03/18/19 07:16 36.8 C 89 18 172/62 H 94 03/18/19 04:00 36.6 C 82 17 140/59 L 94 03/17/19 23:13 36.6 C 73 17 139/72 93 (1) Multiple rib fractures Encounter type: initial encounter Fracture type: closed Laterality: left Qualified Code(s): S22.42XA - Multiple fractures of ribs, left side, initial encounter for closed fracture
[2019-03-18 12:41] LABS: INR 1.1 (0.9-1.1)
--- NOTE | 2019-03-18 16:00 | Surgery Consultation ---
Date of Consultation March 18, 2019 Assessment & Plan (1) Fecal impaction: Digitally disimpacted colostomy down to fascial level and administered tap water enema approx 100 cc with rubber cath. This alleviated her symptoms, continue Miralax and Senna. Supervising Physician Co-Signing Physician Notes The patient was seen and examined by me. I agree with the assessment and plan. She has suffered multiple falls recently with failure to thrive. She was recently discharged from [facility] lungs are clear to auscultation percussion. Cardiac exam reveals regular rhythm with grade 1/6 systolic murmur at the apex negative S3. Abdomen is soft with normal bowel sounds. Extremities reveal no significant edema or cyanosis. She will need occupational therapy and physical therapy assessments with case management intervention and eventual placement. History of Present Illness Attending Physician: Freddie Moulton MD History of Present Illness 84 y/o female admitted yesterday after a fall and we are asked to see now for lack of ostomy output and pain around RLQ stoma. This is her second admission in the past two weeks for a fall. She had several left rib fractures on 03/03 and has been taking Ultram. Has history of Crohns, has had current RLQ colostomy for about 3 years. Had previous LLQ ostomy, now has a hernia there and had seen Dr. Harrison recently in the office. Allergies Allergy/AdvReac Type Severity Reaction Status Date / Time adhesive tape Allergy Severe SKIN Verified 03/17/19 13:09 IRRITATION cashew nut Allergy Severe Hives Verified 03/17/19 13:09 shellfish derived Allergy Severe SOB Verified 03/17/19 13:09 Sulfa (Sulfonamide Allergy Severe Hives Unverified 03/17/19 13:09 Antibiotics) Home Medications Home Medications Medication Instructions Recorded Confirmed Type acetaminophen 650 mg PO BID PRN 09/29/18 03/17/19 History amlodipine 5 mg PO QAM 09/29/18 03/17/19 History atorvastatin 10 mg PO QAM 09/29/18 03/17/19 History carvedilol 12.5 mg PO BIDM 09/29/18 03/17/19 History citalopram 40 mg PO QAM 09/29/18 03/17/19 History clopidogrel 75 mg PO QAM 09/29/18 03/17/19 History cyanocobalamin (vitamin B-12) 500 mcg PO QAM 09/29/18 03/17/19 History [Vitamin B-12] diphenoxylate-atropine 1 tab PO DIRECTED 09/29/18 03/17/19 History levothyroxine 100 mcg PO QAM 09/29/18 03/17/19 History magnesium oxide 400 mg PO QAM 09/29/18 03/17/19 History multivitamin 1 tab PO QAM 09/29/18 03/17/19 History nitroglycerin [Nitrostat] 0.4 mg SUBLINGUAL DIRECTED PRN 09/29/18 03/17/19 History cholecalciferol (vitamin D3) 2,000 unit PO QAM 03/04/19 03/17/19 History [Vitamin D3] pantoprazole 40 mg PO QAM 03/04/19 03/17/19 History tramadol [Ultram] 50 mg PO TID PRN #20 tab 03/06/19 03/17/19 Rx lisinopril 5 mg PO QAM 03/17/19 03/17/19 History meclizine 12.5 mg PO Q8H PRN 03/17/19 03/17/19 History methenamine mandelate 1 g PO QAM 03/17/19 03/17/19 History Patient History Medical History Failure to thrive IBS (irritable bowel syndrome) CVA, old, dysphagia Depression Hypothyroidism History of DVT (deep vein thrombosis) Atrial fibrillation Hypomagnesemia Anemia Pulmonary nodules Ascending aortic aneurysm Multiple rib fractures (Acute) Fall (Acute) Stroke (Chronic) Hypertension (Chronic) A-fib (Chronic) Crohn's disease (Chronic) Surgical History S/P colectomy Family History Other Family history non-contributory Social History Preferred Language: Syriac Communication Ability: Effective Special Education Associate Required: No Beliefs That Will Affect Care: None marital status: / Current Living Situation: Alone Current Living Situation Comment: [facility] Other Information That Helps Us Care for You: No Feels Safe at Home: Yes Safety Concerns: Feels Safe At This Time Smoking Status: Never smoker Do You Dip or Chew Tobacco: No Second Hand Exposure: No Tobacco Cessation Education Requested by Patient: No Hx Alcohol Use: No Hx Substance Use: No Review of Systems Gastrointestinal: + abdominal pain and + constipation; no vomiting Physical Exam Constitutional: WD/WN, vitals as above + thin Gastrointestinal (Abdomen): Inspection/Auscultation: abdomen not distended Percussion/Palpation: + abdomen tender (around RLQ ostomy with mendez like fecal impaction), abdomen soft and + hernia (tennis ball sized LLQ incision, soft, NT) Results & Data Vital Signs (Past 12 Hours) Vital Signs Temp Pulse Pulse Resp BP Pulse Ox 03/18/19 15:00 76 03/18/19 14:53 37.0 C 82 18 148/78 H 94 03/18/19 11:37 95 03/18/19 11:15 36.7 C 78 18 127/67 94 03/18/19 08:00 90 03/18/19 07:16 36.8 C 89 18 172/62 H 94 03/18/19 04:00 36.6 C 82 17 140/59 L 94
[2019-03-18] MEDS: DOCUSATE SODIUM/SENNA 50/8.6MG TAB PO SCH (21:19)
[2019-03-19] MEDS: LEVOTHYROXINE SODIUM 100 MCG TABLET PO SCH (05:54)
[2019-03-19] MEDS: TRAMADOL HCL 50 MG TABLET PO PRN ×3 (06:08→20:31)
[2019-03-19 06:15] LABS: BUN Creatinine Ratio 11.8 (10-20); Calcium 8.1 mg/dl (8.5-10.1); Creatinine Clr Calc Pharmacy 24.5 ml/min; Est GFR (African American) 46.6; Est GFR (Non-African American) 40.2; Potassium 3.1 mmol/L (3.5-5.1)
[2019-03-19] MEDS: ENOXAPARIN INJ 30 MG/0.3 ML SYR SQ SCH (09:50)
[2019-03-19] MEDS: LISINOPRIL 5 MG TAB PO SCH (09:51)
[2019-03-19] MEDS: POLYETHYLENE (MIRALAX) 17 GM PACK PO SCH (09:51)
[2019-03-19] MEDS: ATORVASTATIN 10 MG TAB PO SCH (09:51)
[2019-03-19] MEDS: PANTOprazole 40 MG TAB PO SCH (09:51)
[2019-03-19] MEDS: CHOLECALCIFEROL 1,000 UNITS TAB PO SCH (09:51)
[2019-03-19] MEDS: AMLODIPINE BESYLATE 5 MG TAB PO SCH (09:51)
[2019-03-19] MEDS: METHENAMINE HIPPURATE 1 GM TAB PO SCH (09:52)
[2019-03-19] MEDS: MAGNESIUM OXIDE 400 MG TAB PO SCH (09:52)
[2019-03-19] MEDS: CITALOPRAM 40 MG TAB PO SCH (09:52)
[2019-03-19] MEDS: DOCUSATE SODIUM/SENNA 50/8.6MG TAB PO SCH ×2 (09:52→20:34)
[2019-03-19] MEDS: CLOPIDOGREL BISULFATE 75 MG TAB PO SCH (09:52)
[2019-03-19] MEDS: CARVEDILOL 12.5 MG TAB PO SCH ×2 (09:52→16:17)
--- NOTE | 2019-03-19 11:18 | Surgery Progress Note ---
Date of Service March 19, 2019 Assessment & Plan (1) Fecal impaction: continue po bowel regimen will follow prn Subjective denies abdominal pain, tolerating diet Physical Exam Gastrointestinal (Abdomen): Inspection/Auscultation: abdomen not distended Percussion/Palpation: abdomen soft; abdomen nontender Results & Data Vital Signs (Past 12 Hours) Vital Signs Temp Pulse Resp BP Pulse Ox 03/19/19 06:55 36.5 C 76 18 149/73 H 93
--- NOTE | 2019-03-19 12:57 | Hospitalist Progress Note ---
Date of Service March 19, 2019 Assessment & Plan (1) Failure to thrive: Patient was discharged from [facility] on 03/16, but she reports she fell there and cannot manage at home. - PT/OT consults - Fall precautions - CM consulted - Will need placement (2) Fall: Likely multifactorial falls at home and at [facility]. Weakness, dizziness (from reported Meniere's disease) likely contributing. B12 > 2000 ruling out B12 deficiency as contributor. - PT/OT as above (3) Multiple rib fractures: Left sided s/p recent fall 2 weeks ago. - Continue tramadol for pain, working well per pt. (4) Atrial fibrillation: Paroxysmal. Has pacemaker. Follows with cardiology as outpatient. - Continue carvedilol 12.5mg PO BID - Not on anticoagulation due to frequent falls. (5) Ascending aortic aneurysm: - Noted stable, 4 cm dilation noted on CT chest on 03/04/19. (6) Hypothyroidism: TSH was 2.1 in last admission. No signs/symptoms of hypo-/hyperthyroidism. 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 - Continue citalopram 40 mg daily (8) Crohn's disease: History of colectomy, colostomy bag in [facility]. - Had stoma obstruction on admission. Disimpacted by surgery on 03/18 with rec for continued PO stool softener - As of 03/19, having softer BMs from colostomy. 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 Patient was working with speech therapy at recent stay at [facility]. - Speech therapy eval ordered - Regular diet, crush medications, sit upright for meals. (10) History of DVT (deep vein thrombosis): Per notes, it was in the right leg. Unclear when this was. - Makes her a higher VTE risk patient (11) DVT prophylaxis: - Lovenox, TEDs, SCDs, Plavix Subjective Feeling well today. Stoma site a bit sore today, but with softer stool. Review of Systems Review of Systems: All systems reviewed & are unremarkable except as noted in HPI & below Physical Exam Constitutional: WD/WN, vitals as above Eyes: EOM intact bilaterally; no conjunctival abnormality ENMT: external ear and nose normal, oropharynx normal Neck: trachea midline, no thyromegaly normal visual inspection Respiratory: normal respiratory effort, lungs clear to auscultation no respiratory distress Cardiovascular: RRR, no murmur, no edema Gastrointestinal (Abdomen): Inspection/Auscultation: abdomen normal to inspection (Ostomy with softer, brown stool) and normal bowel sounds; abdomen not distended Percussion/Palpation: abdomen soft; abdomen nontender, no guarding and abdomen not rigid Musculoskeletal: no cyanosis or clubbing, extremities motor strength 5/5 Skin: no rashes, warm and dry Neurologic: moves all extremities and awake Psychiatric: Orientation: alert, oriented to person and cooperative Results & Data Vital Signs (Past 12 Hours) Vital Signs Temp Pulse Resp BP Pulse Ox 03/19/19 06:55 36.5 C 76 18 149/73 H 93 (1) Multiple rib fractures Encounter type: initial encounter Fracture type: closed Laterality: left Qualified Code(s): S22.42XA - Multiple fractures of ribs, left side, initial encounter for closed fracture
[2019-03-19] MEDS ORDERED: POTASSIUM CHLORIDE PWD 20 MEQ PACK PO STA (12:59)
[2019-03-20] MEDS: TRAMADOL HCL 50 MG TABLET PO PRN ×2 (05:45→20:15)
[2019-03-20] MEDS: LEVOTHYROXINE SODIUM 100 MCG TABLET PO SCH (05:45)
[2019-03-20 07:41] LABS: Calcium 8.4 mg/dl (8.5-10.1); Creatinine Clr Calc Pharmacy 25.3 ml/min; Est GFR (African American) 48.5; Est GFR (Non-African American) 41.9; Potassium 3.8 mmol/L (3.5-5.1)
[2019-03-20] MEDS: AMLODIPINE BESYLATE 5 MG TAB PO SCH (10:08)
[2019-03-20] MEDS: CLOPIDOGREL BISULFATE 75 MG TAB PO SCH (10:08)
[2019-03-20] MEDS: LISINOPRIL 5 MG TAB PO SCH (10:08)
[2019-03-20] MEDS: CARVEDILOL 12.5 MG TAB PO SCH ×2 (10:08→16:14)
[2019-03-20] MEDS: ATORVASTATIN 10 MG TAB PO SCH (10:08)
[2019-03-20] MEDS: PANTOprazole 40 MG TAB PO SCH (10:08)
[2019-03-20] MEDS: METHENAMINE HIPPURATE 1 GM TAB PO SCH (10:08)
[2019-03-20] MEDS: CHOLECALCIFEROL 1,000 UNITS TAB PO SCH (10:08)
[2019-03-20] MEDS: CITALOPRAM 40 MG TAB PO SCH (10:08)
[2019-03-20] MEDS: MAGNESIUM OXIDE 400 MG TAB PO SCH (10:09)
[2019-03-20] MEDS: ENOXAPARIN INJ 30 MG/0.3 ML SYR SQ SCH (10:09)
[2019-03-20] MEDS: POLYETHYLENE (MIRALAX) 17 GM PACK PO SCH (10:11)
[2019-03-20] MEDS: DOCUSATE SODIUM/SENNA 50/8.6MG TAB PO SCH ×2 (10:11→20:16)
--- NOTE | 2019-03-20 15:03 | Hospitalist Progress Note ---
Date of Service March 20, 2019 Assessment & Plan (1) Failure to thrive: Patient was discharged from [facility] on 03/16, but she reports she fell there and cannot manage at home. - PT/OT consults - Fall precautions - CM consulted - Will need placement (2) Fall: Likely multifactorial falls at home and at [facility]. Weakness, dizziness (from reported Meniere's disease) likely contributing. B12 > 2000 ruling out B12 deficiency as contributor. - PT/OT as above (3) Multiple rib fractures: Left sided s/p recent fall 2 weeks ago. - Continue tramadol for pain, working well per pt. (4) Atrial fibrillation: Paroxysmal. Has pacemaker. Follows with cardiology as outpatient. - Continue carvedilol 12.5mg PO BID - Not on anticoagulation due to frequent falls. (5) Ascending aortic aneurysm: - Noted stable, 4 cm dilation noted on CT chest on 03/04/19. (6) Hypothyroidism: TSH was 2.1 in last admission. No signs/symptoms of hypo-/hyperthyroidism. 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 - Continue citalopram 40 mg daily (8) Crohn's disease: History of colectomy, colostomy bag in [facility]. - Had stoma obstruction on admission. Disimpacted by surgery on 03/18 with rec for continued PO stool softener - As of 03/19, having softer BMs from colostomy. Still doing well on 03/20. 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 Patient was working with speech therapy at recent stay at [facility]. - Speech therapy eval ordered - Regular diet, crush medications, sit upright for meals. (10) History of DVT (deep vein thrombosis): Per notes, it was in the right leg. Unclear when this was. - Makes her a higher VTE risk patient (11) DVT prophylaxis: - Lovenox, TEDs, SCDs, Plavix Subjective Ms. Hoover feels well. No major concerns today. Review of Systems Review of Systems: All systems reviewed & are unremarkable except as noted in HPI & below Physical Exam Constitutional: WD/WN, vitals as above Eyes: EOM intact bilaterally; no conjunctival abnormality ENMT: external ear and nose normal, oropharynx normal Neck: trachea midline, no thyromegaly normal visual inspection Respiratory: normal respiratory effort, lungs clear to auscultation no respiratory distress Cardiovascular: RRR, no murmur, no edema Gastrointestinal (Abdomen): Inspection/Auscultation: abdomen normal to inspection (Ostomy with softer, brown stool) and normal bowel sounds; abdomen not distended Percussion/Palpation: abdomen soft; abdomen nontender, no guarding and abdomen not rigid Musculoskeletal: no cyanosis or clubbing, extremities motor strength 5/5 Skin: no rashes, warm and dry Neurologic: moves all extremities and awake Psychiatric: Orientation: alert, oriented to person and cooperative Results & Data Vital Signs (Past 12 Hours) Vital Signs Temp Pulse Resp BP Pulse Ox 03/20/19 07:53 36.7 C 72 18 118/70 94 (1) Multiple rib fractures Encounter type: initial encounter Fracture type: closed Laterality: left Qualified Code(s): S22.42XA - Multiple fractures of ribs, left side, initial encounter for closed fracture
[2019-03-21] MEDS: LEVOTHYROXINE SODIUM 100 MCG TABLET PO SCH (06:22)
[2019-03-21] MEDS: DOCUSATE SODIUM/SENNA 50/8.6MG TAB PO SCH ×2 (09:13→20:30)
[2019-03-21] MEDS: POLYETHYLENE (MIRALAX) 17 GM PACK PO SCH (09:13)
[2019-03-21] MEDS: PANTOprazole 40 MG TAB PO SCH (09:14)
[2019-03-21] MEDS: CLOPIDOGREL BISULFATE 75 MG TAB PO SCH (09:14)
[2019-03-21] MEDS: CITALOPRAM 40 MG TAB PO SCH (09:14)
[2019-03-21] MEDS: CARVEDILOL 12.5 MG TAB PO SCH ×2 (09:14→16:13)
[2019-03-21] MEDS: ATORVASTATIN 10 MG TAB PO SCH (09:14)
[2019-03-21] MEDS: ENOXAPARIN INJ 30 MG/0.3 ML SYR SQ SCH (09:14)
[2019-03-21] MEDS: CHOLECALCIFEROL 1,000 UNITS TAB PO SCH (09:14)
[2019-03-21] MEDS: METHENAMINE HIPPURATE 1 GM TAB PO SCH (09:15)
[2019-03-21] MEDS: AMLODIPINE BESYLATE 5 MG TAB PO SCH (09:15)
[2019-03-21] MEDS: MAGNESIUM OXIDE 400 MG TAB PO SCH (09:15)
[2019-03-21] MEDS: LISINOPRIL 5 MG TAB PO SCH (09:15)
--- NOTE | 2019-03-21 16:50 | Hospitalist Progress Note ---
Date of Service March 21, 2019 Assessment & Plan (1) Failure to thrive: Patient was discharged from [facility] on 03/16, but she reports she fell there and cannot manage at home. - PT/OT consults - Fall precautions - CM consulted - Will need placement; awaiting insurance auth for [facility]. (2) Fall: Likely multifactorial falls at home and at [facility]. Weakness, dizziness (from reported Meniere's disease) likely contributing. B12 > 2000 ruling out B12 deficiency as contributor. - PT/OT as above (3) Multiple rib fractures: Left sided s/p recent fall 2 weeks ago. - Continue tramadol for pain, working well per pt. (4) Atrial fibrillation: Paroxysmal. Has pacemaker. Follows with cardiology as outpatient. - Continue carvedilol 12.5mg PO BID - Not on anticoagulation due to frequent falls. (5) Ascending aortic aneurysm: - Noted stable, 4 cm dilation noted on CT chest on 03/04/19. (6) Hypothyroidism: TSH was 2.1 in last admission. No signs/symptoms of hypo-/hyperthyroidism. 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 - Continue citalopram 40 mg daily (8) Crohn's disease: History of colectomy, colostomy bag in [facility]. - Had stoma obstruction on admission. Disimpacted by surgery on 03/18 with rec for continued PO stool softener - As of 03/19, having softer BMs from colostomy. Still doing well on 03/20. 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 Patient was working with speech therapy at recent stay at [facility]. - Speech therapy eval ordered - Regular diet, crush medications, sit upright for meals. (10) History of DVT (deep vein thrombosis): Per notes, it was in the right leg. Unclear when this was. - Makes her a higher VTE risk patient (11) DVT prophylaxis: - Lovenox, TEDs, SCDs, Plavix Subjective Feels fine. No major complaints. Review of Systems Review of Systems: All systems reviewed & are unremarkable except as noted in HPI & below Physical Exam Constitutional: WD/WN, vitals as above Eyes: EOM intact bilaterally; no conjunctival abnormality ENMT: external ear and nose normal, oropharynx normal Neck: trachea midline, no thyromegaly normal visual inspection Respiratory: normal respiratory effort, lungs clear to auscultation no respiratory distress Cardiovascular: RRR, no murmur, no edema Gastrointestinal (Abdomen): Inspection/Auscultation: abdomen normal to inspection (Ostomy with softer, brown stool) and normal bowel sounds; abdomen not distended Percussion/Palpation: abdomen soft; abdomen nontender, no guarding and abdomen not rigid Musculoskeletal: no cyanosis or clubbing, extremities motor strength 5/5 Skin: no rashes, warm and dry Neurologic: moves all extremities and awake Psychiatric: Orientation: alert, oriented to person and cooperative Results & Data Vital Signs (Past 12 Hours) Vital Signs Temp Pulse Resp BP Pulse Ox 03/21/19 15:36 36.8 C 75 18 147/72 H 94 03/21/19 07:12 36.7 C 78 18 157/83 H 92 (1) Multiple rib fractures Encounter type: initial encounter Fracture type: closed Laterality: left Qualified Code(s): S22.42XA - Multiple fractures of ribs, left side, initial encounter for closed fracture
[2019-03-21] MEDS: TRAMADOL HCL 50 MG TABLET PO PRN (20:30)
[2019-03-22] MEDS: TRAMADOL HCL 50 MG TABLET PO PRN ×2 (05:00→14:13)
[2019-03-22] MEDS: LEVOTHYROXINE SODIUM 100 MCG TABLET PO SCH (06:01)
[2019-03-22] MEDS: DOCUSATE SODIUM/SENNA 50/8.6MG TAB PO SCH (08:38)
[2019-03-22] MEDS: POLYETHYLENE (MIRALAX) 17 GM PACK PO SCH (08:38)
[2019-03-22] MEDS: CLOPIDOGREL BISULFATE 75 MG TAB PO SCH (08:39)
[2019-03-22] MEDS: AMLODIPINE BESYLATE 5 MG TAB PO SCH (08:39)
[2019-03-22] MEDS: CHOLECALCIFEROL 1,000 UNITS TAB PO SCH (08:39)
[2019-03-22] MEDS: METHENAMINE HIPPURATE 1 GM TAB PO SCH (08:39)
[2019-03-22] MEDS: CITALOPRAM 40 MG TAB PO SCH (08:39)
[2019-03-22] MEDS: ENOXAPARIN INJ 30 MG/0.3 ML SYR SQ SCH (08:39)
[2019-03-22] MEDS: ATORVASTATIN 10 MG TAB PO SCH (08:39)
[2019-03-22] MEDS: MAGNESIUM OXIDE 400 MG TAB PO SCH (08:39)
[2019-03-22] MEDS: LISINOPRIL 5 MG TAB PO SCH (08:39)
[2019-03-22] MEDS: PANTOprazole 40 MG TAB PO SCH (08:39)
[2019-03-22] MEDS: CARVEDILOL 12.5 MG TAB PO SCH (08:39)
--- NOTE | 2019-03-22 16:07 | Discharge Summary ---
Date of Service March 22, 2019 Admission HPI Per Admitting Provider This is a 84 yo M with PMhx of afib s/p pacemaker, severe aortic stenosis, hx CVA 2015 with residual right sided weakness and dysphagia on plavix, hypomagnesemia, anemia, CKD stage III, HTN, AAA, multiple falls, IBD s/p colectomy with colostomy, large LLQ abdominal hernia from origional colostomy placement, hypothyroidism, depression who presents from home due to a fall. The patient had fallen two weeks ago and suffered multiple left sided rib fractures. She reports becoming dizzy when going from a sitting to standing position. Pt notes this morning she was cleaning up after one of her dogs inside her home, and fell due to inability to balance. She was not using a walker this morning, although has one in her home. She lives alone, although a daughter and son in law frequently come to check on her. The patient was discharged from [facility] yesterday as ran out of insurance funding for more PT/OT. Her family does not think she is safe to return home. Of note, the patient was eating and drinking poorly at SNF d/t not liking the food. She has recently developed a fine tremor in her hands and feet in the past week which is bothersome. Pt also notes her stool is very hard through the colostomy and has not had a soft BM in over 1 week. Principal Diagnosis Failure to thrive, falls. Discharge Exam Constitutional WD/WN, vitals as above Eyes EOM intact bilaterally; no conjunctival abnormality ENMT external ear and nose normal, oropharynx normal Neck trachea midline, no thyromegaly normal visual inspection Respiratory normal respiratory effort, lungs clear to auscultation no respiratory distress Cardiovascular RRR, no murmur, no edema Gastrointestinal (Abdomen) Inspection/Auscultation: abdomen normal to inspection (Ostomy with softer, brown stool) and normal bowel sounds; abdomen not distended Percussion/Palpation: abdomen soft; abdomen nontender, no guarding and abdomen not rigid Musculoskeletal no cyanosis or clubbing, extremities motor strength 5/5 Skin no rashes, warm and dry Neurologic moves all extremities and awake Psychiatric Orientation: alert, oriented to person and cooperative Discharge Data Allergies Allergy/AdvReac Type Severity Reaction Status Date / Time adhesive tape Allergy Severe SKIN Verified 03/17/19 13:09 IRRITATION cashew nut Allergy Severe Hives Verified 03/17/19 13:09 shellfish derived Allergy Severe SOB Verified 03/17/19 13:09 Sulfa (Sulfonamide Allergy Severe Hives Unverified 03/17/19 13:09 Antibiotics) Consultations 03/17/19 13:32 ED Decision to Admit Stat 03/17/19 14:19 Consult Case Management - Discharge Planning Routine 03/18/19 13:14 Consult General Surgery Routine Ordered Studies 03/17/19 11:29 CT cervical spine wo con Stat CT head/brain wo con Stat Hospital Course (1) Failure to thrive: Patient was discharged from [facility] on 03/16, but she reports she fell there and cannot manage at home. - PT/OT - Fall precautions (2) Fall: Likely multifactorial falls at home and at [facility]. Weakness, dizziness (from reported Meniere's disease) likely contributing. B12 > 2000 ruling out B12 deficiency as contributor. - PT/OT as above (3) Multiple rib fractures: Left sided s/p recent fall 2 weeks ago. - Continue tramadol for pain, working well per pt. (4) Atrial fibrillation: Paroxysmal. Has pacemaker. Follows with cardiology as outpatient. - Continue carvedilol 12.5mg PO BID - Not on anticoagulation due to frequent falls. - Follow up with cardiology in 1 month. (5) Ascending aortic aneurysm: - Noted stable, 4 cm dilation noted on CT chest on 03/04/19. (6) Hypothyroidism: TSH was 2.1 in last admission. No signs/symptoms of hypo-/hyperthyroidism. 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 - Continue citalopram 40 mg daily (8) Crohn's disease: History of colectomy, colostomy bag in [place]. - Had stoma obstruction on admission. Disimpacted by surgery on 03/18 with rec for continued PO stool softener - As of 03/22, having softer BMs from colostomy. Take Miralax and doc/senna PRN. 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 Patient was working with speech therapy at recent stay at [facility]. - Speech therapy eval ordered - Regular diet, crush medications, sit upright for meals. (10) History of DVT (deep vein thrombosis): Per notes, it was in the right leg. Unclear when this was. - Makes her a higher VTE risk patient (11) DVT prophylaxis: - Lovenox, TEDs, SCDs, Plavix Total Time Total Time Spent Total Time Spent (In Minutes): 35 Total Time Includes: Examination of the Patient, Discharge Planning, Medication Reconciliation and Communication With Other Providers Discharge Plan Discharge Items Patient Disposition: Transfer Inpatient Rehab Fac Reason For Visit: FALL, FTT Discharge Diagnosis: Falls Condition: Fair Discharge Goals: Decrease discomfort Activity: Resume your previous activity Non-emergency contact: Primary Care Provider Call non-emergency contact if: you have any medication questions, your symptoms worsen and your pain is not controlled Follow-up/Referrals: Pro,Jason Munoz MD [Primary Care Provider] - Diet: Regular Addtl Provider Instructions: Please follow up with your PCP in 2-3 weeks after discharge. Prescriptions: New sennosides-docusate sodium [Senokot-S] 8.6-50 mg Tablet 1 tab PO BID Qty: 1 RF: 0 Continued acetaminophen 325 mg Tablet 650 mg PO BID PRN (Reason: Pain) RF: 0 carvedilol 12.5 mg Tablet 12.5 mg PO BIDM RF: 0 citalopram 40 mg Tablet 40 mg PO QAM RF: 0 atorvastatin 10 mg Tablet 10 mg PO QAM RF: 0 diphenoxylate-atropine 2.5-0.025 mg Tablet 1 tab PO DIRECTED RF: 0 clopidogrel 75 mg Tablet 75 mg PO QAM RF: 0 amlodipine 5 mg Tablet 5 mg PO QAM RF: 0 levothyroxine 100 mcg Tablet 100 mcg PO QAM RF: 0 nitroglycerin [Nitrostat] 0.4 mg Tablet, Sublingual 0.4 mg Sublingual DIRECTED PRN (Reason: Chest Pain) RF: 0 magnesium oxide 400 mg magnesium Tablet 400 mg PO QAM RF: 0 pantoprazole 40 mg tablet,delayed release (DR/EC) 40 mg PO QAM RF: 0 cholecalciferol (vitamin D3) [Vitamin D3] 2,000 unit Capsule 2,000 unit PO QAM RF: 0 tramadol [Ultram] 50 mg tablet 50 mg PO TID PRN (Reason: pain) Qty: 20 RF: 0 meclizine 12.5 mg tablet 12.5 mg PO Q8H PRN (Reason: Dizziness) RF: 0 lisinopril 10 mg tablet 5 mg PO QAM RF: 0 methenamine mandelate 1 gram tablet 1 g PO QAM RF: 0 Discontinued multivitamin Tablet 1 tab PO QAM RF: 0 cyanocobalamin (vitamin B-12) [Vitamin B-12] 500 mcg Lozenge 500 mcg PO QAM RF: 0 Stand-Alone Forms: [facility] Discharge Orders: Discharge Order (Routine); Ordered 03/22/19 Ordered By: Freddie Moulton Skilled Items Patient informed of condition?: Yes DNR: Yes Discharge Level of Care: Acute rehab Communicable Disease: No Discharge Prognosis: Stable Admission Data Admit Date/Time: 03/20/19 15:55 Attending Provider: Freddie Moulton Admit Provider: Carlos Chu Primary Care Provider: Jason Pike Other Providers: Carlos Chu ; Jose Harrison Service: Medical Other Interventions: Discharge Summary Assessment (RN) Last Done: 03/22/19 15:35
== END 2019-03-22 16:38 | DRG 92 ==
LOC: 2S 10:47 → ED 10:47 → SUATTDRO 13:56 → 2S 15:02 → 3N 03-18 16:00

== ENCOUNTER 2020-06-12 17:52 | Inpatient (IN) ==
[2020-06-12] MEDS ORDERED: SODIUM CHLORIDE 0.9% 500 ML IV SCH (18:15)
--- NOTE | 2020-06-12 18:19 | Emergency Department Note ---
Impression & Plan SOB (shortness of breath), Dizziness, Hypomagnesemia, Hypokalemia ED Provider Note NAME: LISA RUVALCABA AGE: 85 SEX: F : 1935 ARRIVES VIA: Walk-In INFORMANT: [Patient][family] ED PROVIDER(S): [Jac Dodd MD] CHIEF COMPLAINT: Weakness HISTORY OF PRESENT ILLNESS: The patient is an 85-year-old female who presents with multiple complaints. The patient states in the last week or so she has noticed dizziness, weakness and fatigue. She primarily notices the weakness and dizziness with any position change. Patient states that the weakness is diffuse, it is not one-sided. She feels off balance but can walk with her walker. She has not fallen today. The patient also complains of shortness of breath. She has been short of breath for 6 months. It seems to be worsening. It is exertional dyspnea. The patient saw pulmonary yesterday and they have a outpatient work-up planned. This includes a chest CT and pulmonary function tests. They also suggested a cardiac echo. The patient has not had urinary complaints. There has been no cough or fever. She had a small episode of chest pain last night but it was short-lived and there is no chest pain today. No abdominal pain. She has a colostomy which has been functioning normally. The only new medication is prednisone. This was added earlier this week in an attempt to help her dyspnea, it has not helped. REVIEW OF SYSTEMS: See HPI for pertinent positives and negatives. A total of ten systems were reviewed and were otherwise negative. PMHx/PSHx: See Below SOCIAL HISTORY: See Below. PHYSICAL EXAM: GENERAL: Patient is in no acute distress. HEENT: No acute trauma, normocephalic atraumatic, mucous membranes moist, no nasal congestion, no scleral icterus. NECK: No stridor, no adenopathy, no meningismus, trachea is midline. LUNGS: Increased respiratory rate, no wheezing, equal breath sounds. No accessory muscle use. HEART: 3/6 systolic murmur, regular rate and rhythm. ABDOMEN: Soft, nontender, bowel sounds positive, patient does have a right-sided colostomy with nothing in the bag. She has a reducible nontender midline abdominal hernia. EXTREMITIES: No cyanosis or edema, full range of motion of all the joints without pain or difficulty, no signs for acute trauma. NEUROLOGIC: Oriented x 3, no acute motor or sensory deficits, no focal weakness. No extremity drift, no cerebellar dysfunction. No speech slur or facial droop. SKIN: No rash, no jaundice, no diaphoresis. DIFFERENTIAL DIAGNOSIS: Infection, dehydration, metabolic abnormality, hypo/hyperglycemia, UTI, CVA, TIA, aortic stenosis, electrolyte disturbance, anemia, hypoxia, cardiac sources, intracerebral event, toxicologic, neurologic, as well as other pathologies. EMERGENCY DEPARTMENT COURSE/PROCEDURES: ECG: Indication was weakness. The ECG shows a normal sinus rhythm with some nonspecific ST change. The rate is 78. The QTc is 465. There is no ST elevation, no PVCs. Continuous Cardiac Monitoring: An order was placed for continuous cardiac monitoring. The monitor shows a rate of 81 with normal sinus rhythm. MEDICAL DECISION MAKING: There is no leukocytosis or concerning anemia. Potassium was low at 3.1. Magnesium was quite low at 1.2. There was some renal insufficiency but this appears baseline when looking back at previous testing. Lactic acid level was not elevated making sepsis less likely. No concerning liver enzyme elevation. The patient appeared to be in a euthyroid state. Urinalysis shows some contamination, no obvious infection. Urine culture is pending. Chest film shows some chronic findings, no pneumonia or CHF. Brain CT shows no acute bleed or mass-effect. The patient presents with 1 week of weakness, dizziness and fatigue. She does have some chemistry issues which may explain her presentation. She seems dehydrated clinically. No focal neurologic findings on my exam. The patient is in need of a hospital stay. She was given oral and IV magnesium. She was given IV potassium and IV saline. I spoke to the patient and case management. The on-call hospitalist was consulted. Past Med/Surg History Medical History A-fib Abdominal wall abscess Anemia Aortic stenosis Artificial cardiac pacemaker Ascending aortic aneurysm Atrial fibrillation Calculus of kidney Chronic diarrhea Colitis Crohn's disease CVA, old, dysphagia Depression Dysphagia as late effect of cerebrovascular disease Esophageal reflux Failure to thrive Fall Gait disturbance History of DVT (deep vein thrombosis) History of myocardial infarction History of stroke Hypertension Hyperthyroidism Hypomagnesemia Hypothyroidism IBS (irritable bowel syndrome) Insomnia Left knee pain Multiple lung nodules on CT Multiple rib fractures Occlusion and stenosis of unspecified carotid artery Paroxysmal atrial fibrillation Pulmonary nodules SCCA (squamous cell carcinoma) of skin Spinal stenosis Stroke Swelling of knee joint Vitamin D deficiency Surgical History H/O ileostomy H/O: hysterectomy History of colostomy History of lumbar fusion S/P cataract surgery S/P colectomy S/P placement of cardiac pacemaker S/P thyroid surgery S/P tonsillectomy Family History Mother Depression Gallbladder disease Cardiac disorder Hypertension Kidney stones Father Lung cancer Grandmother (Maternal) Myocardial infarction Other Family history non-contributory Denies family history of Ovarian cancer Prostate cancer Breast cancer Colorectal cancer Social History Smoking Status: Never smoker Second Hand Exposure: No; Hx Alcohol Use: No Hx Substance Use: No Preferred Language: Syriac Communication Ability: Effective Visual Impairment: No Limitations Hearing Ability: Use of Hearing Aid Salon Customer Experience Specialist Required: No Beliefs That Will Affect Care: None marital status: / Current Living Situation: Spouse Current Living Situation Comment: Nursing Home current occupational status: retired Feels Safe at Home: Yes Safety Concerns: Feels Safe At This Time Childhood Exposure to Second-Hand Smoke: Yes Dental Care, Regularly: Yes Physical Activity Frequency: Daily Seatbelt Use: always Sunscreen Use: No Allergies Allergies Allergy/AdvReac Type Severity Reaction Status Date / Time adhesive tape Allergy Severe SKIN Verified 06/12/20 20:43 IRRITATION cashew nut Allergy Severe Hives Verified 06/12/20 20:43 shellfish derived Allergy Severe Shortness Verified 06/12/20 20:43 of Breath Sulfa (Sulfonamide Allergy Severe Hives Verified 06/12/20 20:43 Antibiotics) Home Meds Home Medications Medication Instructions Recorded Confirmed acetaminophen 650 mg PO BID PRN 09/29/18 06/12/20 nitroglycerin [Nitrostat] 0.4 mg SUBLINGUAL DIRECTED PRN 09/29/18 06/12/20 cholecalciferol (vitamin D3) 2,000 unit PO QAM 03/04/19 06/12/20 [Vitamin D3] meclizine 12.5 mg PO Q8H PRN 03/17/19 06/12/20 multivitamin 1 tab PO DAILY 04/02/19 06/12/20 cyanocobalamin (vitamin B-12) 500 500 mcg PO DAILY ea 09/01/19 06/12/20 mcg lozenges diclofenac sodium 75 mg PO BID PRN 06/12/20 06/12/20 nitrofurantoin macrocrystal 50 mg PO HS 06/12/20 06/12/20 prednisone See Rx Instructions .ROUTE .COMPLEX 06/12/20 06/12/20 trazodone 50 mg PO HS PRN 06/12/20 06/12/20 Previous Rx's Medication Instructions Recorded sennosides-docusate sodium 1 tab PO BID #1 tab 03/22/19 [Senokot-S] magnesium oxide 400 mg (241.3 mg 400 mg PO DAILY #30 tab 06/25/19 magnesium) tablet clopidogrel 75 mg tablet 75 mg PO QAM #90 tab 07/29/19 pantoprazole 40 mg tablet,delayed 40 mg PO QAM #90 tab 07/29/19 release amlodipine 5 mg tablet 5 mg PO QAM #90 tab 07/30/19 atorvastatin 10 mg tablet 10 mg PO QAM #90 tab 07/30/19 carvedilol 12.5 mg tablet 12.5 mg PO BID #90 tab 07/30/19 lisinopril 10 mg tablet 5 mg PO QAM #45 tab 07/30/19 levothyroxine 100 mcg tablet 100 mcg PO QAM #90 tab 10/21/19 nystatin 100,000 unit/gram topical 1 appln TOP BID #30 gm 12/11/19 powder citalopram 40 mg tablet 40 mg PO QAM #90 tab 12/16/19 oxybutynin chloride 5 mg tablet 5 mg PO BID #60 tab 02/05/20 tiotropium bromide 18 mcg capsule 1 cap INH DAILY #30 puffs 02/21/20 with inhalation device Results & Data (ED) Vital Signs Vital Signs - 24 hr 06/12/20 17:53 06/12/20 19:12 06/12/20 19:42 Temperature 36.6 C Temperature Source Oral Pulse Rate - Lying 75 Pulse Rate - Sitting 70 Pulse Rate - Standing 91 H Pulse Rate 81 Pulse Rate [Right Finger] 75 Respiratory Rate 19 16 Respiratory Effort / Characteristics Spontaneous Non-Labored Respiratory Depth Normal Respiratory Pattern Regular Blood Pressure - Lying 148/103 H Blood Pressure - Sitting 124/70 Blood Pressure- Standing 124/67 Blood Pressure 127/74 Blood Pressure [Right Arm] 124/60 Blood Pressure Mean 91 Blood Pressure Mean [Right Arm] 81 Blood Pressure Position [Right Arm] Lying Pulse Oximetry 95 96 Oxygen Delivery Method Room Air Room Air Sepsis Recent Fever Within 48 Hours No Sepsis New/Unexplained Change in Mental Status No Sepsis Action Taken by Nursing No Action Required 06/12/20 21:13 Temperature Temperature Source Pulse Rate - Lying Pulse Rate - Sitting Pulse Rate - Standing Pulse Rate Pulse Rate [Right Finger] 75 Respiratory Rate 16 Respiratory Effort / Characteristics Respiratory Depth Normal Respiratory Pattern Blood Pressure - Lying Blood Pressure - Sitting Blood Pressure- Standing Blood Pressure Blood Pressure [Right Arm] 156/79 H Blood Pressure Mean Blood Pressure Mean [Right Arm] 104 Blood Pressure Position [Right Arm] Pulse Oximetry 95 Oxygen Delivery Method Sepsis Recent Fever Within 48 Hours Sepsis New/Unexplained Change in Mental Status Sepsis Action Taken by Usp Medications Current Medication List: was personally reviewed by me Laboratory Data Attestation: I reviewed the patient's lab results. Result diagrams: 06/12/20 18:35 06/12/20 19:12 Lab Results 06/12/20 06/12/20 06/12/20 Range/Units 18:35 19:12 19:12 WBC 7.98 (4.8-10.8) K/uL RBC 4.78 (4.2-5.4) M/uL Hgb 12.7 (12.0-16.0) g/dL Hct 38.7 (37-47) % MCV 81.0 (80-100) fL MCH 26.6 (25-34) pg MCHC 32.8 (32-36) g/dL RDW Std Deviation 47.1 H (36.4-46.3) fL RDW Coeff of Heladio 15.8 H (11.5-14.5) % Plt Count 373 (130-400) K/uL MPV 9.9 (7.4-10.4) fL Immature Gran % (Auto) 0.3 % Neut % (Auto) 50.4 % Lymph % (Auto) 35.1 % Blaine % (Auto) 11.5 % Eos % (Auto) 2.3 % Baso % (Auto) 0.4 % Neut # (Auto) 4.03 (1.4-6.5) K/uL Lymph # (Auto) 2.80 (1.2-3.4) K/uL Blaine # (Auto) 0.92 H (0.11-0.59) K/uL Eos # (Auto) 0.18 (0-0.5) K/uL Baso # (Auto) 0.03 (0-0.2) K/uL Immature Gran # (Auto) 0.02 (0.00-0.02) K/uL Sodium 137 (136-145) mmol/L Potassium 3.1 L (3.5-5.1) mmol/L Chloride 103 (98-107) mmol/L Carbon Dioxide 27 (21-32) mmol/L Anion Gap 7.0 (3-11) BUN 30 H (7-18) mg/dl Creatinine 1.55 H (0.6-1.2) mg/dl Est Cr Clr Drug Dosing Not Reportable Est GFR ( Amer) 35.0 Est GFR (Non-Af Amer) 30.2 BUN/Creatinine Ratio 19.3 (10-20) Glucose 119 H (70-99) mg/dl Lactate 1.6 (0.4-2.0) mmol/L Calcium 8.6 (8.5-10.1) mg/dl Magnesium 1.2 L (1.8-2.4) mg/dl Total Bilirubin 0.5 (0.2-1) mg/dl AST 15 (15-37) U/L ALT 15 (12-78) U/L Alkaline Phosphatase 73 (45-117) U/L Troponin I 0.022 (0-0.045) ng/ml Total Protein 6.5 (6.4-8.2) gm/dl Albumin 3.3 L (3.4-5.0) gm/dl Globulin 3.2 (2.5-4.0) gm/dl Albumin/Globulin Ratio 1.0 (0.9-2) TSH 0.502 (0.300-4.500) uIu/ml Administered Medications Carvedilol (Carvedilol 12.5 Mg Tab) 12.5 mg PO BID ANN MARIE Stop: 07/12/20 22:51 Last Admin: 06/13/20 00:15 Dose: 12.5 mg Documented by: [id number] Oxybutynin Chloride (Oxybutynin Chloride 5 Mg Tab) 5 mg PO BID ANN MARIE Stop: 07/12/20 22:51 Last Admin: 06/13/20 00:15 Dose: 5 mg Documented by: [id number] Senna/Docusate Sodium (Docusate Sodium/Senna 50/8.6mg Tab) 1 tab PO BID ANN MARIE Stop: 07/12/20 22:51 Last Admin: 06/13/20 00:17 Dose: Not Given Documented by: [id number] Trazodone HCl (Trazodone Hcl 50 Mg Tab) 50 mg PO HS PRN PRN Reason: Insomnia Stop: 07/13/20 20:59 Last Admin: 06/13/20 00:50 Dose: 50 mg Documented by: [id number] Discontinued Medications Sodium Chloride (Nss) 500 mls @ 999 mls/hr IV .Q31M ANN MARIE Stop: 06/12/20 18:45 Last Infusion: 06/12/20 21:14 Dose: 0 mls/hr Documented by: [id number] Admin: 06/12/20 19:14 Dose: 999 mls/hr Documented by: [id number] Potassium Chloride (K [place] / Wtr) 10 meq in 100 mls @ 100 mls/hr IV ONE ONE Stop: 06/12/20 20:44 Last Infusion: 06/12/20 21:14 Dose: 0 mls/hr Documented by: [id number] Admin: 06/12/20 20:18 Dose: 100 mls/hr Documented by: [id number] Magnesium Sulfate/Dextrose (Magnesium Sulfate / D5w) 1 gm in 100 mls @ 100 mls/hr IV Q1H ANN MARIE Stop: 06/12/20 21:45 Last Infusion: 06/12/20 22:25 Dose: 0 mls/hr Documented by: [id number] Admin: 06/12/20 21:13 Dose: 100 mls/hr Documented by: [id number] Infusion: 06/12/20 21:13 Dose: 0 mls/hr Documented by: [id number] Admin: 06/12/20 20:18 Dose: 100 mls/hr Documented by: [id number] Magnesium Oxide (Magnesium Oxide 400 Mg Tab) 400 mg PO NOW STA Stop: 06/12/20 19:46 Last Admin: 06/12/20 21:56 Dose: 400 mg Documented by: [id number] Miscellaneous (Patient's Height And/Or Weight Needed) 1 ea N/A Q2H ANN MARIE Stop: 07/12/20 23:14 Last Admin: 06/13/20 00:17 Dose: 1 ea Documented by: [id number] Imaging Data Radiologist's Impression: XR chest 1V portable CLINICAL HISTORY: weakness COMPARISON STUDY: Chest CT May 22, 2019. Chest radiograph June 08, 2020. FINDINGS: Lung volumes are normal. Lungs are clear. There is no pneumothorax or pleural effusion. Cardiac size is normal. Mediastinal contours are normal. There is no evidence for pulmonary edema. Incidental note is made of a vertebroplasty, dual-lead left subclavian pacemaker partially visualize lumbar spine hardware. Several old left rib fractures are present. IMPRESSION: No acute cardiopulmonary findings. No change in appearance of the chest. CT OF THE HEAD WITHOUT CONTRAST CLINICAL HISTORY: weakness COMPARISON STUDY: Head CT March 17, 2019. CT DOSE: 1074.96 mGy.cm TECHNIQUE: Helical axial images of the head were obtained without IV contrast. Automated exposure control was utilized for the study. A dose lowering technique was utilized adhering to the principles of ALARA. FINDINGS: No acute intracranial hemorrhage, midline shift or mass effect is present. The appearance of the brain is unchanged. Ventricular system is stable. Basilar cisterns are patent. There are old bilateral basal ganglia infarcts. There are no findings to suggest acute dural sinus thrombosis or acute territorial infarct. White matter hypodensity suggests small vessel disease. Mild mucosal thickening of the left sphenoid sinus is unchanged. This is likely chronic. There are no significant calvarial abnormalities. IMPRESSION: No acute intracranial findings. No change in appearance of the brain. Old bilateral basal ganglia infarcts. Blood Pressure Blood Pressure Findings: Elevated blood pressure Blood Pressure Disposition: further management by hospitalist Discharge Plan Visit Data Chief Complaint: Dizziness Stated Complaint: DIZZINESS ED Provider: Jac Dodd Discharge Problem: SOB (shortness of breath), Dizziness, Hypomagnesemia, Hypokalemia Patient Disposition: Admitted As Inpatient Condition: Fair Discharge Instructions Interventions: ED Discharge Assessment Last Done: 06/12/20 22:17
[2020-06-12 18:46] LABS: Basophils # (auto) 0.03 K/uL (0-0.2); Basophils % (auto) 0.4 %; Eosinophils # (auto) 0.18 K/uL (0-0.5); Eosinophils % (auto) 2.3 %; Hematocrit (blood only) 38.7 % (37-47); Hemoglobin 12.7 g/dL (12.0-16.0); Immature Granulocytes # (auto) 0.02 K/uL (0.00-0.02); Immature Granulocytes % (auto) 0.3 %; Lymphocytes % (auto) 35.1 %; Mean Corpuscular Hemoglobin 26.6 pg (25-34); Mean Corpuscular Hgb Conc 32.8 g/dL (32-36); Mean Platelet Volume 9.9 fL (7.4-10.4); Monocytes # (auto) 0.92 K/uL (0.11-0.59); Monocytes % (auto) 11.5 %; Neutrophils # (auto) 4.03 K/uL (1.4-6.5); Neutrophils % (auto) 50.4 %; Platelet Count 373 K/uL (130-400); RDW Coefficient of Variation 15.8 % (11.5-14.5); RDW Standard Deviation 47.1 fL (36.4-46.3); Red Blood Count 4.78 M/uL (4.2-5.4); White Blood Count 7.98 K/uL (4.8-10.8)
--- NOTE | 2020-06-12 18:55 | XRay Report ---
XR chest 1V portable CLINICAL HISTORY: weakness COMPARISON STUDY: Chest CT May 22, 2019. Chest radiograph June 08, 2020. FINDINGS: Lung volumes are normal. Lungs are clear. There is no pneumothorax or pleural effusion. Car diac size is normal. Mediastinal contours are normal. There is no evidence for pulmonary edema. Incid ental note is made of a vertebroplasty, dual-lead left subclavian pacemaker partially visualize lumba r spine hardware. Several old left rib fractures are present. IMPRESSION: No acute cardiopulmonary findings. No change in appearance of the chest. ACT 112: Negative or not required by law. Electronically signed by: Sancho Carl M.D. 06/12/2020 6:54 PM
--- NOTE | 2020-06-12 19:33 | CT Scan Report ---
CT OF THE HEAD WITHOUT CONTRAST CLINICAL HISTORY: weakness COMPARISON STUDY: Head CT March 17, 2019. CT DOSE: 1074.96 mGy.cm TECHNIQUE: Helical axial images of the head were obtained without IV contrast. Automated exposure con trol was utilized for the study. A dose lowering technique was utilized adhering to the principles o f ALARA. FINDINGS: No acute intracranial hemorrhage, midline shift or mass effect is present. The appearance o f the brain is unchanged. Ventricular system is stable. Basilar cisterns are patent. There are old bi lateral basal ganglia infarcts. There are no findings to suggest acute dural sinus thrombosis or acut e territorial infarct. White matter hypodensity suggests small vessel disease. Mild mucosal thickenin g of the left sphenoid sinus is unchanged. This is likely chronic. There are no significant calvarial abnormalities. IMPRESSION: No acute intracranial findings. No change in appearance of the brain. Old bilateral basa l ganglia infarcts. ACT 112: Negative or not required by law. Electronically signed by: Sancho Carl M.D. 06/12/2020 7:31 PM
[2020-06-12 19:40] LABS: Alanine Aminotransferase 15 U/L (12-78); Albumin Level 3.3 gm/dl (3.4-5.0); Aspartate Aminotransferase 15 U/L (15-37); BUN Creatinine Ratio 19.3 (10-20); Blood Urea Nitrogen 30 mg/dl (7-18); Calcium 8.6 mg/dl (8.5-10.1); Carbon Dioxide 27 mmol/L (21-32); Chloride 103 mmol/L (98-107); Est GFR (Non-African American) 30.2; Glucose 119 mg/dl (70-99); Magnesium 1.2 mg/dl (1.8-2.4); Potassium 3.1 mmol/L (3.5-5.1); Sodium 137 mmol/L (136-145)
[2020-06-12] MEDS ORDERED: MAGNESIUM OXIDE 400 MG TAB PO STA (19:45)
[2020-06-12] MEDS ORDERED: POTASSIUM CHLORIDE / WTR 10 MEQ/100 ML PLCT IV ONE (19:45)
[2020-06-12 19:50] LABS: Appearance Urine Clear (Clear); Bacteria Urine Automated 1+ (Negative); Bilirubin Urine Negative (Negative); Blood Urine Negative (Negative); Color Urine Yellow; Epithelial Cell Urine Auto >30 /lpf (0-5); Glucose Urine UA Negative (Negative); Ketones Urine Negative (Negative); Leukocyte Esterase Urine 2+ (Negative); Nitrite Urine Negative (Negative); Protein Urine Negative (Negative); Specific Gravity Urine 1.012 (1.000-1.030); Urobilinogen Urine Negative (Negative); pH Urine 5.5 (4.5-7.5)
[2020-06-12 19:51] LABS: Alkaline Phosphatase 73 U/L (45-117); Bilirubin,Total 0.5 mg/dl (0.2-1); Globulin 3.2 gm/dl (2.5-4.0); Thyroid Stimulating Hormone 0.502 uIu/ml (0.300-4.500); Total Protein 6.5 gm/dl (6.4-8.2); Troponin I 0.022 ng/ml (0-0.045)
[2020-06-12 20:02] LABS: Amorphous Sediment Urine Present (None Prsent); RBC Urine Automated 0-4 /hpf (0-4)
[2020-06-12] MEDS: MAGNESIUM SULFATE / D5W 1 GM/100 ML BAG IV SCH ×2 (20:18→21:13)
--- NOTE | 2020-06-12 21:49 | History & Physical Report ---
Date of Service June 12, 2020 Assessment & Plan (1) SOB (shortness of breath): Likely combination of COPD exacerbation and progressive moderately severe aortic stenosis. Present on Admission?: Yes (2) Aortic stenosis: Moderately severe aortic stenosis- Noted on last echo 12/18/2019. We will repeat echocardiogram. Consult cardiology Present on Admission?: Yes (3) COPD exacerbation: Hold tiotropium bromide. Trial of Xopenex/Atrovent 0.63 mg nebulizer every 6 hours Hold prednisone taper. Methylprednisolone 20 mg IV every 8 hours Present on Admission?: Yes (4) Hypomagnesemia: Magnesium level 1.2 upon admission. Receiving IV replacement in the ED. Recheck in the a.m. Present on Admission?: Yes (5) Hypokalemia: Potassium level 3.1 upon admission. Receiving IV replacement in ED, will recheck in the a.m. Present on Admission?: Yes (6) Paroxysmal atrial fibrillation: Continue carvedilol, amlodipine, clopidogrel and lisinopril. Present on Admission?: Yes (7) Hypothyroidism: Continue levothyroxine 100 mcg daily Present on Admission?: Yes (8) Esophageal reflux: Continue pantoprazole Present on Admission?: Yes (9) Depression: Continue citalopram Present on Admission?: Yes History of Present Illness Chief Complaint: The patient presents to the emergency department with complaints of feeling dizzy, generalized weakness, fatigue and shortness of breath. Primary Care Provider: Jason Pike MD The patient is an 85-year-old female with a past medical history including cardiac pacemaker, urge and stress incontinence, CVA, [place], paroxysmal atrial fibrillation, carotid artery stenosis, GERD, aortic stenosis, status post colectomy, depression, hypothyroidism, DVT, Mnire's, Crohn's and acute kidney injury. The patient has been seeing by her physician early this week, and was given a trial of prednisone to try to help with her breathing, until she could follow-up with pulmonology. Allergies Allergy/AdvReac Type Severity Reaction Status Date / Time adhesive tape Allergy Severe SKIN Verified 06/12/20 20:43 IRRITATION cashew nut Allergy Severe Hives Verified 06/12/20 20:43 shellfish derived Allergy Severe Shortness Verified 06/12/20 20:43 of Breath Sulfa (Sulfonamide Allergy Severe Hives Verified 06/12/20 20:43 Antibiotics) Home Medications Home Medications Medication Instructions Recorded Confirmed Type acetaminophen 650 mg PO BID PRN 09/29/18 06/12/20 History nitroglycerin [Nitrostat] 0.4 mg SUBLINGUAL DIRECTED PRN 09/29/18 06/12/20 H istory cholecalciferol (vitamin D3) 2,000 unit PO QAM 03/04/19 06/12/20 History [Vitamin D3] meclizine 12.5 mg PO Q8H PRN 03/17/19 06/12/20 History sennosides-docusate sodium 1 tab PO BID #1 tab 03/22/19 06/12/20 Rx [Senokot-S] multivitamin 1 tab PO DAILY 04/02/19 06/12/20 History magnesium oxide 400 mg (241.3 mg 400 mg PO DAILY #30 tab 06/25/19 06/12/20 Rx magnesium) tablet clopidogrel 75 mg tablet 75 mg PO QAM #90 tab 07/29/19 06/12/20 Rx pantoprazole 40 mg tablet,delayed 40 mg PO QAM #90 tab 07/29/19 06/12/20 Rx release amlodipine 5 mg tablet 5 mg PO QAM #90 tab 07/30/19 06/12/20 Rx atorvastatin 10 mg tablet 10 mg PO QAM #90 tab 07/30/19 06/12/20 Rx carvedilol 12.5 mg tablet 12.5 mg PO BID #90 tab 07/30/19 06/12/20 Rx lisinopril 10 mg tablet 5 mg PO QAM #45 tab 07/30/19 06/12/20 Rx cyanocobalamin (vitamin B-12) 500 500 mcg PO DAILY ea 09/01/19 06/12/20 History mcg lozenges levothyroxine 100 mcg tablet 100 mcg PO QAM #90 tab 10/21/19 06/12/20 Rx nystatin 100,000 unit/gram topical 1 appln TOP BID #30 gm 12/11/19 06/12/20 Rx powder citalopram 40 mg tablet 40 mg PO QAM #90 tab 12/16/19 06/12/20 Rx oxybutynin chloride 5 mg tablet 5 mg PO BID #60 tab 02/05/20 06/12/20 Rx tiotropium bromide 18 mcg capsule 1 cap INH DAILY #30 puffs 02/21/20 06/12/20 Rx with inhalation device diclofenac sodium 75 mg PO BID PRN 06/12/20 06/12/20 History nitrofurantoin macrocrystal 50 mg PO HS 06/12/20 06/12/20 History prednisone See Rx Instructions .ROUTE .COMPLEX 06/12/20 06/12/20 History trazodone 50 mg PO HS PRN 06/12/20 06/12/20 History Past Med/Surg History Medical History A-fib Abdominal wall abscess Anemia Aortic stenosis Artificial cardiac pacemaker Ascending aortic aneurysm Atrial fibrillation Calculus of kidney Chronic diarrhea Colitis Crohn's disease CVA, old, dysphagia Depression Dysphagia as late effect of cerebrovascular disease Esophageal reflux Failure to thrive Fall Gait disturbance History of DVT (deep vein thrombosis) History of myocardial infarction History of stroke Hypertension Hyperthyroidism Hypomagnesemia Hypothyroidism IBS (irritable bowel syndrome) Insomnia Left knee pain Multiple lung nodules on CT Multiple rib fractures Occlusion and stenosis of unspecified carotid artery Paroxysmal atrial fibrillation Pulmonary nodules SCCA (squamous cell carcinoma) of skin Spinal stenosis Stroke Swelling of knee joint Vitamin D deficiency Surgical History H/O ileostomy H/O: hysterectomy History of colostomy History of lumbar fusion S/P cataract surgery S/P colectomy S/P placement of cardiac pacemaker S/P thyroid surgery S/P tonsillectomy Family History Mother Depression Gallbladder disease Cardiac disorder Hypertension Kidney stones Father Lung cancer Grandmother (Maternal) Myocardial infarction Other Family history non-contributory Denies family history of Ovarian cancer Prostate cancer Breast cancer Colorectal cancer Social History Smoking Status: Never smoker Second Hand Exposure: No; Hx Alcohol Use: No Hx Substance Use: No Preferred Language: Nigerien Communication Ability: Effective Visual Impairment: No Limitations Hearing Ability: Use of Hearing Aid Air Valve Repairer Required: No Beliefs That Will Affect Care: None marital status: / Current Living Situation: Spouse Current Living Situation Comment: Detention current occupational status: retired Feels Safe at Home: Yes Safety Concerns: Feels Safe At This Time Childhood Exposure to Second-Hand Smoke: Yes Dental Care, Regularly: Yes Physical Activity Frequency: Daily Seatbelt Use: always Sunscreen Use: No Review of Systems Review of Systems: The patient denies chest pain, palpitations, cough, lower extremity swelling, sore throat, fevers, chills, sweats, nausea, vomiting, diarrhea , constipation, abdominal pain, pelvic pain, blood in urine or stool, dysuria, urinary frequency or urgency, lightheadedness, dizziness, headache, loss of consciousness, rash, abnormal bruising or bleeding, imbalance, focal weakness, numbness or tingling in arms or legs, generalized arthralgias or myalgias, back or neck pain, or night sweats. The review of systems is otherwise negative other than for that already noted above, and at least 10 systems have been reviewed. Physical Exam Physical Exam: The patient is awake, alert and oriented 3, normocephalic and atraumatic, lying in bed and in no acute distress. HEENT--PERRL, EOMI, mucous membranes and oropharynx normal. Neck--supple. No JVD. No bruits. Thyroid normal, trachea midline, no adenopathy. Heart--normal S1 and S2. No murmurs, rubs or gallops. Lungs--wheezes bilaterally. No respiratory distress, no accessory muscle use. Abdomen--normal bowel sounds and soft. Nontender. Nondistended. Extremities--no cyanosis or clubbing. No edema. Dermatologic--normal skin turgor, normal color, no abnormal lymph nodes, no rash. Neurologic--cranial nerves II through XII grossly intact. Rheumatologic--normal range of motion. Psychiatric--normal affect. Results & Data Results & Data ([facility]) Vital Signs (Past 12 Hours) Vital Signs Temp Pulse Pulse Resp BP BP Pulse Ox 06/12/20 21:13 75 16 156/79 H 95 06/12/20 19:42 75 16 124/60 96 06/12/20 17:53 97.9 F 81 19 127/74 95 Laboratory Results Laboratory Results WBC 7.98 K/uL (4.8-10.8) 06/12/20 18:35 RBC 4.78 M/uL (4.2-5.4) 06/12/20 18:35 Hgb 12.7 g/dL (12.0-16.0) 06/12/20 18:35 Hct 38.7 % (37-47) 06/12/20 18:35 MCV 81.0 fL (80-100) 06/12/20 18:35 MCH 26.6 pg (25-34) 06/12/20 18:35 MCHC 32.8 g/dL (32-36) 06/12/20 18:35 RDW Std Deviation 47.1 fL (36.4-46.3) H 06/12/20 18:35 RDW Coeff of Heladio 15.8 % (11.5-14.5) H 06/12/20 18:35 Plt Count 373 K/uL (130-400) 06/12/20 18:35 MPV 9.9 fL (7.4-10.4) 06/12/20 18:35 Immature Gran % (Auto) 0.3 % 06/12/20 18:35 Neut % (Auto) 50.4 % 06/12/20 18:35 Lymph % (Auto) 35.1 % 06/12/20 18:35 [place] % (Auto) 11.5 % 06/12/20 18:35 Eos % (Auto) 2.3 % 06/12/20 18:35 Baso % (Auto) 0.4 % 06/12/20 18:35 Neut # (Auto) 4.03 K/uL (1.4-6.5) 06/12/20 18:35 Lymph # (Auto) 2.80 K/uL (1.2-3.4) 06/12/20 18:35 [place] # (Auto) 0.92 K/uL (0.11-0.59) H 06/12/20 18:35 Eos # (Auto) 0.18 K/uL (0-0.5) 06/12/20 18:35 Baso # (Auto) 0.03 K/uL (0-0.2) 06/12/20 18:35 Immature Gran # (Auto) 0.02 K/uL (0.00-0.02) 06/12/20 18:35 Sodium 137 mmol/L (136-145) 06/12/20 19:12 Potassium 3.1 mmol/L (3.5-5.1) L 06/12/20 19:12 Chloride 103 mmol/L (98-107) 06/12/20 19:12 Carbon Dioxide 27 mmol/L (21-32) 06/12/20 19:12 Anion Gap 7.0 (3-11) 06/12/20 19:12 BUN 30 mg/dl (7-18) H 06/12/20 19:12 Creatinine 1.55 mg/dl (0.6-1.2) H 06/12/20 19:12 Est Cr Clr Drug Dosing Not Reportable 06/12/20 19:12 Est GFR ( Amer) 35.0 06/12/20 19:12 Est GFR (Non-Af Amer) 30.2 06/12/20 19:12 BUN/Creatinine Ratio 19.3 (10-20) 06/12/20 19:12 Glucose 119 mg/dl (70-99) H 06/12/20 19:12 Lactate 1.6 mmol/L (0.4-2.0) 06/12/20 19:12 Calcium 8.6 mg/dl (8.5-10.1) 06/12/20 19:12 Magnesium 1.2 mg/dl (1.8-2.4) L 06/12/20 19:12 Total Bilirubin 0.5 mg/dl (0.2-1) 06/12/20 19:12 AST 15 U/L (15-37) 06/12/20 19:12 ALT 15 U/L (12-78) 06/12/20 19:12 Alkaline Phosphatase 73 U/L (45-117) 06/12/20 19:12 Troponin I < 0.015 ng/ml (0-0.045) 06/12/20 23:07 Total Protein 6.5 gm/dl (6.4-8.2) 06/12/20 19:12 Albumin 3.3 gm/dl (3.4-5.0) L 06/12/20 19:12 Globulin 3.2 gm/dl (2.5-4.0) 06/12/20 19:12 Albumin/Globulin Ratio 1.0 (0.9-2) 06/12/20 19:12 TSH 0.502 uIu/ml (0.300-4.500) 06/12/20 19:12 Urine Color Yellow 06/12/20 Unknown Urine Appearance Clear (Clear) 06/12/20 Unknown Urine pH 5.5 (4.5-7.5) 06/12/20 Unknown Ur Specific [place] 1.012 (1.000-1.030) 06/12/20 Unknown Urine Protein Negative (Negative) 06/12/20 Unknown Urine Glucose (UA) Negative (Negative) 06/12/20 Unknown Urine Ketones Negative (Negative) 06/12/20 Unknown Urine Blood Negative (Negative) 06/12/20 Unknown Urine Nitrite Negative (Negative) 06/12/20 Unknown Urine Bilirubin Negative (Negative) 06/12/20 Unknown Urine Urobilinogen Negative (Negative) 06/12/20 Unknown Ur Leukocyte Esterase 2+ (Negative) H 06/12/20 Unknown Urine WBC (Auto) 10-30 /hpf (0-5) H 06/12/20 Unknown Urine RBC (Auto) 0-4 /hpf (0-4) 06/12/20 Unknown U Hyaline Cast (Auto) 1-5 /lpf (0-5) 06/12/20 Unknown U Epithel Cells (Auto) >30 /lpf (0-5) H 06/12/20 Unknown Urine Bacteria (Auto) 1+ (Negative) H 06/12/20 Unknown Amorphous Sediment Present (None Prsent) A 06/12/20 Unknown Diagnostic Findings [place], [place] [phone] XRay Report Patient: LISA RUVALCABA Date: 06/12/20 MR#: [id number]: [address] Acct ID:[id number]: Date: [address] [place] [address] Zip: [place] [address] Age: 85Location: ED Sex: FRoom/Bed: Att Phy:Diagnosis: DIZZINESS Iva Phy: Jason Pike MDService Date: 06/12/20 Fam Phy:Interpreting Phy: Sancho Carl MD Admit Phy: Ordering Phy: Jac Dodd M.D. cc: ~ XR chest 1V portable CLINICAL HISTORY: weakness COMPARISON STUDY: Chest CT May 22, 2019. Chest radiograph June 08, 2020. FINDINGS: Lung volumes are normal. Lungs are clear. There is no pneumothorax or pleural effusion. Cardiac size is normal. Mediastinal contours are normal. There is no evidence for pulmonary edema. Incidental note is made of a vertebroplasty, dual-lead left subclavian pacemaker partially visualize lumbar spine hardware. Several old left rib fractures are present. IMPRESSION: No acute cardiopulmonary findings. No change in appearance of the chest. ACT 112: Negative or not required by law. Electronically signed by: Sancho Carl M.D. 06/12/2020 6:54 PM Dictated: 06/12/201852 Transcribed: 06/12/201852 [place], [place] [phone] CT Scan Report Patient: LISA RUVALCABA Date: 06/12/20 MR#: [id number]: [address] Acct ID:[id number]: [facility] Zip: [place] [address] Age: 85Location: ED Sex: FRoom/Bed: Att Phy:Diagnosis: DIZZINESS Iva Phy: Jason Pike MDServna Date: 06/12/20 Fam Phy:Interpreting Phy: Sancho Carl MD Admit Phy: Ordering Phy: Jac Dodd M.D. cc: ~ CT OF THE HEAD WITHOUT CONTRAST CLINICAL HISTORY: weakness COMPARISON STUDY: Head CT March 17, 2019. CT DOSE: 1074.96 mGy.cm TECHNIQUE: Helical axial images of the head were obtained without IV contrast. Automated exposure control was utilized for the study. A dose lowering technique was utilized adhering to the principles of ALARA. FINDINGS: No acute intracranial hemorrhage, midline shift or mass effect is present. The appearance of the brain is unchanged. Ventricular system is stable. Basilar cisterns are patent. There are old bilateral basal ganglia infarcts. There are no findings to suggest acute dural sinus thrombosis or acute territorial infarct. White matter hypodensity suggests small vessel disease. Mild mucosal thickening of the left sphenoid sinus is unchanged. This is likely chronic. There are no significant calvarial abnormalities. IMPRESSION: No acute intracranial findings. No change in appearance of the brain. Old bilateral basal ganglia infarcts. ACT 112: Negative or not required by law. Electronically signed by: Sancho Carl M.D. 06/12/2020 7:31 PM Dictated: 06/12/201928 Transcribed: 06/12/201928 Code Status & VTE Plan Code Status DNR/DNI VTE Prophylaxis Plan VTE Prophylaxis will be ordered: Yes PG Care Time/CCT Total # of Minutes Spent Total Time Spent with Patient: Total time spent is greater than 50% in coordination of care (as documented) at patient's floor/unit and/or counseling patient: Coding Level of Care Code 50329 Initial Inpt Care Lvl 3 Diagnoses SOB (shortness of breath) R06.02 Aortic stenosis I35.0 COPD exacerbation J44.1 Hypomagnesemia E83.42 Hypokalemia E87.6 Paroxysmal atrial fibrillation I48.0 Hypothyroidism E03.9 Esophageal reflux K21.9 Depression F32.9
[2020-06-12] MEDS ORDERED: MECLIZINE 12.5 MG TAB PO PRN (22:52)
[2020-06-12] MEDS ORDERED: ONDANSETRON INJ 2 MG/ML 2 ML VIAL IV PRN (22:52)
[2020-06-12] MEDS ORDERED: ALUMINUM/MAGNESIUM SUSP 30 ML UDC PO PRN (22:52)
[2020-06-12] MEDS ORDERED: MAGNESIUM HYDROXIDE SUSP 30 ML UDC PO PRN (22:52)
[2020-06-12] MEDS ORDERED: NITROGLYCERIN SL 0.4 MG/TAB TAB SL PRN (22:52)
[2020-06-12] MEDS ORDERED: ACETAMINOPHEN 325 MG TAB PO PRN (22:52)
[2020-06-12] MEDS ORDERED: PATIENT'S HEIGHT AND/OR WEIGHT NEEDED SCH (23:15)
[2020-06-13] MEDS: OXYBUTYNIN CHLORIDE 5 MG TAB PO SCH ×3 (00:15→20:42)
[2020-06-13] MEDS: carvediloL 12.5 MG TAB PO SCH ×3 (00:15→20:42)
[2020-06-13] MEDS: DOCUSATE SODIUM/SENNA 50/8.6MG TAB PO SCH ×3 (00:17→20:43)
[2020-06-13] MEDS: TRAZODONE HCL 50 MG TAB PO PRN ×2 (00:50→21:00)
[2020-06-13] MEDS: methylPREDNISolone 20 MG in SYRINGE 0 ML IV SCH ×3 (04:07→20:41)
[2020-06-13] MEDS: LEVOTHYROXINE SODIUM 100 MCG TABLET PO SCH (04:08)
[2020-06-13] MEDS ORDERED: XOPENEX/ATROVENT 0.63mg/0.5MG NEB COMBO NEB SCH (07:00)
[2020-06-13] MEDS: LEVALBUTEROL HCL 0.63 MG/3 ML NEB NEB SCH ×3 (07:14→18:51)
[2020-06-13] MEDS: IPRATROPIUM BROMIDE NEB SOLN 0.02% 2.5 ML VIAL INH SCH ×3 (07:14→18:49)
[2020-06-13 07:26] LABS: Basophils # (auto) 0.02 K/uL (0-0.2); Basophils % (auto) 0.3 %; Eosinophils # (auto) 0.22 K/uL (0-0.5); Eosinophils % (auto) 3.2 %; Hemoglobin 12.3 g/dL (12.0-16.0); Immature Granulocytes # (auto) 0.02 K/uL (0.00-0.02); Immature Granulocytes % (auto) 0.3 %; Lymphocytes % (auto) 20.6 %; Mean Corpuscular Hemoglobin 27.6 pg (25-34); Mean Corpuscular Hgb Conc 33.2 g/dL (32-36); Mean Platelet Volume 10.2 fL (7.4-10.4); Monocytes % (auto) 5.9 %; Neutrophils # (auto) 4.75 K/uL (1.4-6.5); Neutrophils % (auto) 69.7 %; Platelet Count 366 K/uL (130-400); RDW Coefficient of Variation 15.9 % (11.5-14.5); RDW Standard Deviation 48.2 fL (36.4-46.3); Red Blood Count 4.46 M/uL (4.2-5.4); White Blood Count 6.81 K/uL (4.8-10.8)
[2020-06-13 07:32] LABS: Prothrombin Time 10.9 Seconds (9.0-12.0)
[2020-06-13 07:47] LABS: Troponin I < 0.015 ng/ml (0-0.045)
[2020-06-13] MEDS: MAGNESIUM OXIDE 400 MG TAB PO SCH (07:50)
[2020-06-13] MEDS: AMLODIPINE BESYLATE 5 MG TAB PO SCH (07:50)
[2020-06-13] MEDS: NYSTATIN POWDER 15GM BTL EXT SCH ×2 (07:50→20:42)
[2020-06-13] MEDS: CITALOPRAM 40 MG TAB PO SCH (07:51)
[2020-06-13] MEDS: CYANOCOBALAMIN 500 MCG TABLET (VITAMIN B-12) PO SCH (07:51)
[2020-06-13] MEDS: PANTOprazole 40 MG TAB PO SCH (07:51)
[2020-06-13] MEDS: CHOLECALCIFEROL 1,000 UNITS 25 MCG TAB PO SCH (07:51)
[2020-06-13] MEDS: CLOPIDOGREL BISULFATE 75 MG TAB PO SCH (07:51)
[2020-06-13] MEDS: lisinopriL 5 MG TAB PO SCH (07:52)
[2020-06-13] MEDS: MULTIVITAMIN TAB PO SCH (07:52)
[2020-06-13] MEDS: UMECLIDINIUM BROMIDE 62.5MCG/BLISTER 7 PUFFS/INHALER INH SCH (07:52)
[2020-06-13] MEDS ORDERED: NITROGLYCERIN 2% OINTMENT 30GM TUBE EXT ONE (08:45)
[2020-06-13] MEDS ORDERED: HEPARIN SOD 5,000 UNIT/0.5 ML VIAL SQ SCH (09:00)
[2020-06-13] MEDS ORDERED: ATORVASTATIN 10 MG TAB PO SCH ×2 (09:00)
[2020-06-13] MEDS ORDERED: HEPARIN SODIUM/DEXTROSE 25,000 UNITS/500 ML BAG IV SCH (09:30)
[2020-06-13] MEDS ORDERED: HEPARIN IV BOLUS 3,000 UNITS in SYRINGE 0 ML IV ONE (09:30)
--- NOTE | 2020-06-13 10:41 | Hospitalist Progress Note ---
Date of Service June 13, 2020 Assessment & Plan (1) SOB (shortness of breath): Sage Hoover is an 85 year old female with COPD, aortic stenosis, paroxysmal atrial fibrillation, pacemaker placement, carotid artery stenosis, history of VT, history of stroke, Crohn's s/p colectomy, hypothyroidism, depression, anxiety, and Meniere's disease who presents with an 8-10 day history of weakness, dizziness, fatigue, and shortness of breath. EKG is slightly changed from overnight EKG, showing submilimeter ST depressions in lateral leads. For the patient's dizziness, weakness, fatigue, shortness of breath, the differential includes COPD exacerbation, progressive aortic stenosis, and/or possible subendocardial ischemia. Shortness of breath -c/w methylprednisolone IV 20mg q8hr -c/w ipratropium bromide inhaler 0.5mg q6hr -c/w levalbuterol nebulizer 0.63mg q6hr -c/w umeclidinium inhaler 1 puff qd -consider azithryomycin administration for atypical and MRSA coverage Aortic stenosis -c/w lisinopril 5mg PO qd -c/w carvedilol 12.5mg PO bid -awaiting echo reading EKG changes -heparin drip for possible NSTEMI -c/w nitroglycerin paste 1 inch -c/w nitroglycerin 0.4mg sublingual PRN -c/w clopidogrel 75mg PO qAM -c/w atorvastatin 40mg PO qAM -c/w ondansetron 4mg IV q6hr Paroxysmal atrial fibrillation -c/w amlodipine 5mg PO qAM Hypothyroidism -Levothyroxine 100mcg PO qd GERD -pantoprazole 40mg PO qAM Depression, anxiety -c/w citalopram 40mg PO qAM -trazodone 50mg PO qhs Meniere's disease -c/w meclizine 12.5mg PO q8h Stress/urge incontinence -c/w oxybutynin 5mg PO bid (2) Dizziness: (3) Artificial cardiac pacemaker: (4) Urge and stress incontinence: (5) History of stroke: (6) History of myocardial infarction: (7) Paroxysmal atrial fibrillation: (8) Esophageal reflux: (9) Colitis: (10) Aortic stenosis: (11) S/P colectomy: (12) Hypothyroidism: (13) Atrial fibrillation: (14) Meniere's disease: (15) Acute UTI: Admission and Anticipated Discharge Date Admission Date: June 12, 2020 Subjective Patient is alert and awake this morning, reporting moderate shortness of breath, mild chest pain on the left near the bottom of her ribs that sometimes includes her back, and continued dizziness, weakness, and fatigue. Patient denies any worsening of her symptoms since she was admitted overnight. Patient denies headache, cough, abdominal pain, nausea, vomiting, fever, chills, or sweats. Review of Systems Constitutional: + fatigue and + weakness; no fever, no chills and no sweats Respiratory: + dyspnea; no cough Cardiovascular: + chest pain and + lightheadedness; no radiating jaw, neck or arm pain and no palpitations Gastrointestinal: no abdominal pain, no nausea, no vomiting, no constipation and no diarrhea/loose stools Physical Exam Constitutional: well nourished and + ill appearing; no acute distress and no altered mental status Respiratory: normal respiratory effort Auscultation: + wheezes (mild expiratory wheezes) Cardiovascular: Rate/Rhythm: regular rate and regular rhythm Heart Sounds: + murmur (grade 5/6 systolic crescendo-decrescendo murmur) Gastrointestinal (Abdomen): normal bowel sounds, soft, nontender, no hepatosplenomegaly Results & Data Results & Data ([facility]) Vital Signs (Past 12 Hours) Vital Signs Temp Pulse Pulse Resp BP Pulse Ox Pulse Ox 06/13/20 08:00 75 06/13/20 07:17 67 16 96 06/13/20 07:13 36.6 C 65 18 141/72 H 93 06/13/20 04:01 36.5 C 77 18 119/72 95 06/12/20 23:36 36.4 C L 75 17 150/90 H 94 06/12/20 23:00 75 06/12/20 22:52 94
--- NOTE | 2020-06-13 10:57 | Cardiology Consultation ---
Date of Consultation June 13, 2020 Assessment & Plan (1) SOB (shortness of breath): Her shortness of breath seems out of proportion to the findings. She is not hypoxic although she is short of breath at rest, she does not seem to be in heart failure on exam or by chest x-ray and this does not seem likely to be due to her aortic stenosis. I will review the echocardiogram when available, it may be difficult to determine the contribution of her aortic valve unless her left ventricular function has deteriorated. (2) Aortic stenosis: She has known aortic stenosis, her valve area and gradient were not to the point where we would expect left ventricular dysfunction but that was 6 months ago. This will be reevaluated today to see if that is contributing to her presentation. (3) Artificial cardiac pacemaker: Her pacemaker appears to be working well on telemetry, I did not interrogate it (4) Dizziness: She is complaining of ongoing dizziness, perhaps that is associated to some extent with low blood pressure although her blood pressure does not seem very low. History of Present Illness Reason for Consultation: Dyspnea on exertion, dizziness, aortic stenosis Attending Physician: Anthony Price, History of Present Illness This is an 85-year-old woman who had a history of COPD, hypertension and stroke, subsequently required pacemaker implantation on 07/20/2011. This is a dual- chamber [employer] pacemaker. Since then she has had no presyncope or syncope and the device paces relatively infrequently. She does have aortic stenosis and has declined invasive evaluation in the past. An echocardiogram done November 28, 2019 showed normal left ventricular size and function with mild concentric left ventricular hypertrophy and aortic stenosis with a valve area calculated at 1 cm. She has had a lot of difficulty with exertional dyspnea in the past. She also is dizzy frequently and relates this to being worse when her blood pressure is on the low side. She has fallen recently, possibly related to the dizziness. She presents now with a week of dizziness, weakness and fatigue as well as worsening shortness of breath. She tells me that the symptoms have been worse over the last day or 2. She describes a lot of the symptoms with position change. She feels off balance but can walk with her walker and has not fallen recently. Her main complaint today is ongoing shortness of breath, even occurring at rest although she is not hypoxic. She did see pulmonary who is going to evaluate this from the pulmonary standpoint however they were concerned this may represent a cardiac etiology. She did have a repeat echocardiogram which will be interpreted today. Allergies Allergy/AdvReac Type Severity Reaction Status Date / Time adhesive tape Allergy Severe SKIN Verified 06/12/20 20:43 IRRITATION cashew nut Allergy Severe Hives Verified 06/12/20 20:43 shellfish derived Allergy Severe Shortness Verified 06/12/20 20:43 of Breath Sulfa (Sulfonamide Allergy Severe Hives Verified 06/12/20 20:43 Antibiotics) Home Medications Home Medications Medication Instructions Recorded Confirmed Type acetaminophen 650 mg PO BID PRN 09/29/18 06/12/20 History nitroglycerin [Nitrostat] 0.4 mg SUBLINGUAL DIRECTED PRN 09/29/18 06/12/20 History cholecalciferol (vitamin D3) 2,000 unit PO QAM 03/04/19 06/12/20 History [Vitamin D3] meclizine 12.5 mg PO Q8H PRN 03/17/19 06/12/20 History sennosides-docusate sodium 1 tab PO BID #1 tab 03/22/19 06/12/20 Rx [Senokot-S] multivitamin 1 tab PO DAILY 04/02/19 06/12/20 History magnesium oxide 400 mg (241.3 mg 400 mg PO DAILY #30 tab 06/25/19 06/12/20 Rx magnesium) tablet clopidogrel 75 mg tablet 75 mg PO QAM #90 tab 07/29/19 06/12/20 Rx pantoprazole 40 mg tablet,delayed 40 mg PO QAM #90 tab 07/29/19 06/12/20 Rx release amlodipine 5 mg tablet 5 mg PO QAM #90 tab 07/30/19 06/12/20 Rx atorvastatin 10 mg tablet 10 mg PO QAM #90 tab 07/30/19 06/12/20 Rx carvedilol 12.5 mg tablet 12.5 mg PO BID #90 tab 07/30/19 06/12/20 Rx lisinopril 10 mg tablet 5 mg PO QAM #45 tab 07/30/19 06/12/20 Rx cyanocobalamin (vitamin B-12) 500 500 mcg PO DAILY ea 09/01/19 06/12/20 History mcg lozenges levothyroxine 100 mcg tablet 100 mcg PO QAM #90 tab 10/21/19 06/12/20 Rx nystatin 100,000 unit/gram topical 1 appln TOP BID #30 gm 12/11/19 06/12/20 Rx powder citalopram 40 mg tablet 40 mg PO QAM #90 tab 12/16/19 06/12/20 Rx oxybutynin chloride 5 mg tablet 5 mg PO BID #60 tab 02/05/20 06/12/20 Rx tiotropium bromide 18 mcg capsule 1 cap INH DAILY #30 puffs 02/21/20 06/12/20 Rx with inhalation device diclofenac sodium 75 mg PO BID PRN 06/12/20 06/12/20 History nitrofurantoin macrocrystal 50 mg PO HS 06/12/20 06/12/20 History prednisone See Rx Instructions .ROUTE .COMPLEX 06/12/20 06/12/20 History trazodone 50 mg PO HS PRN 06/12/20 06/12/20 History Patient History Medical History A-fib Abdominal wall abscess Anemia Aortic stenosis Artificial cardiac pacemaker Ascending aortic aneurysm Atrial fibrillation Calculus of kidney Chronic diarrhea Colitis Crohn's disease CVA, old, dysphagia Depression Dysphagia as late effect of cerebrovascular disease Esophageal reflux Failure to thrive Fall Gait disturbance History of DVT (deep vein thrombosis) History of myocardial infarction History of stroke Hypertension Hyperthyroidism Hypomagnesemia Hypothyroidism IBS (irritable bowel syndrome) Insomnia Left knee pain Multiple lung nodules on CT Multiple rib fractures Occlusion and stenosis of unspecified carotid artery Paroxysmal atrial fibrillation Pulmonary nodules SCCA (squamous cell carcinoma) of skin Spinal stenosis Stroke Swelling of knee joint Vitamin D deficiency Surgical History H/O ileostomy H/O: hysterectomy History of colostomy History of lumbar fusion S/P cataract surgery S/P colectomy S/P placement of cardiac pacemaker S/P thyroid surgery S/P tonsillectomy Family History Mother Depression Gallbladder disease Cardiac disorder Hypertension Kidney stones Father Lung cancer Grandmother (Maternal) Myocardial infarction Other Family history non-contributory Denies family history of Ovarian cancer Prostate cancer Breast cancer Colorectal cancer Social History Smoking Status: Never smoker Second Hand Exposure: No; Hx Alcohol Use: No Hx Substance Use: No Preferred Language: Spanish Communication Ability: Effective Visual Impairment: No Limitations Hearing Ability: Use of Hearing Aid Furniture Assembler Required: No Beliefs That Will Affect Care: None marital status: / Current Living Situation: Spouse Current Living Situation Comment: Long-Term current occupational status: retired Feels Safe at Home: Yes Safety Concerns: Feels Safe At This Time Childhood Exposure to Second-Hand Smoke: Yes Dental Care, Regularly: Yes Physical Activity Frequency: Daily Seatbelt Use: always Sunscreen Use: No Review of Systems Review of Systems: All systems reviewed & are unremarkable except as noted in HPI & below Physical Exam Physical Exam: Constitutional: Alert, cooperative and in no distress. HEENT: Unremarkable Neck: No jugular venous distention, carotid pulses are normal and equal bilaterally without bruits. Pulmonary: Clear to auscultation bilaterally but with decreased breath sounds. Cardiac: Regular rhythm with a grade 2/6 crescendo decrescendo murmur at the base with radiation to her carotids, no gallop or rub. Abdomen: Soft, nontender with normal bowel sounds. Extremities: No edema. Distal pulses intact. Neurologic: No focal findings. Gait is steady. Skin: The device site is well-healed without erythema, swelling or tenderness. No rash, ecchymoses or petechiae. Results & Data ([facility]) Vital Signs (Past 12 Hours) Vital Signs Temp Pulse Pulse Resp BP Pulse Ox 06/13/20 08:00 75 06/13/20 07:17 67 16 96 06/13/20 07:13 36.6 C 65 18 141/72 H 93 06/13/20 04:01 36.5 C 77 18 119/72 95 06/12/20 23:36 36.4 C L 75 17 150/90 H 94 06/12/20 23:00 75 Laboratory Results Cardiac Enzymes 06/12/20 06/12/20 06/13/20 Range/Units 19:12 23:07 06:38 AST 15 (15-37) U/L Troponin I 0.022 < 0.015 < 0.015 (0-0.045) ng/ml Coagulation 06/13/20 Range/Units 06:38 PT 10.9 (9.0-12.0) Seconds CBC 06/12/20 06/13/20 Range/Units 18:35 06:38 WBC 7.98 6.81 (4.8-10.8) K/uL RBC 4.78 4.46 (4.2-5.4) M/uL Hgb 12.7 12.3 (12.0-16.0) g/dL Hct 38.7 37.0 (37-47) % Plt Count 373 366 (130-400) K/uL Neut # (Auto) 4.03 4.75 (1.4-6.5) K/uL Lymph # (Auto) 2.80 1.40 (1.2-3.4) K/uL [place] # (Auto) 0.92 H 0.40 (0.11-0.59) K/uL Eos # (Auto) 0.18 0.22 (0-0.5) K/uL Baso # (Auto) 0.03 0.02 (0-0.2) K/uL Comprehensive Metabolic Panel 06/12/20 Range/Units 19:12 Sodium 137 (136-145) mmol/L Potassium 3.1 L (3.5-5.1) mmol/L Chloride 103 (98-107) mmol/L Carbon Dioxide 27 (21-32) mmol/L BUN 30 H (7-18) mg/dl Creatinine 1.55 H (0.6-1.2) mg/dl Glucose 119 H (70-99) mg/dl Calcium 8.6 (8.5-10.1) mg/dl AST 15 (15-37) U/L ALT 15 (12-78) U/L Alkaline Phosphatase 73 (45-117) U/L Total Protein 6.5 (6.4-8.2) gm/dl Albumin 3.3 L (3.4-5.0) gm/dl Intake and Output 06/12/20 06/13/20 06/13/20 22:59 06:59 14:59 Intake Total 800 / 900 100 / 900 Output Total 475 / 475 Balance 800 / 425 -375 / 425 Intake: IV 800 / 800 MAGNESIUM SULFATE / D5W 1 gm In 200 / 200 100 ml @ 100 mls/hr IV Q1H [facility] Rx#:[id number] K RIDER / WTR 10 meq In 100 ml 100 / 100 @ 100 mls/hr IV ONE ONE Rx#: [id number] Nss 500 ml @ 999 mls/hr IV . 500 / 500 Q31M [facility] Rx#:[id number] Oral 100 / 100 Output: Urine 475 / 475 Other: Weight 40.8 kg Diagnostic Findings Telemetry: Sinus rhythm predominantly in the 70s, occasional pacing, occasional PVCs. Electrocardiogram June 12, 2020 at 1805 shows sinus rhythm at 78 bpm, nonspecific ST-T abnormalities. Another electrocardiogram June 13, 2020 at 6:33 AM shows sinus rhythm at [address]-T abnormalities, perhaps a little more pronounced than on admission. Chest x-ray done on admission was not read as showing signs of congestive heart failure, I am unable to view the images myself due to some software issue Echocardiogram done today is pending. PG Care Time/CCT Total # of Minutes Spent Total Time Spent with Patient: Total time spent is greater than 50% in coordination of care (as documented) at patient's floor/unit and/or counseling patient: Coding Level of Care Code 12342 Initial Inpt Care Lvl 3 Diagnoses SOB (shortness of breath) R06.02 Aortic stenosis I35.0 Artificial cardiac pacemaker Z95.0 Dizziness R42
--- NOTE | 2020-06-13 11:54 | XCELERA ---
[id number]
[2020-06-13 17:18] LABS: Partial Thromboplastin Ratio > 5.0
[2020-06-13 17:30] LABS: Partial Thromboplastin Time > 139.0 Seconds (21.0-31.0)
--- NOTE | 2020-06-13 18:38 | Billing Data ---
Date of Service June 13, 2020 Coding Level of Care Code 76076 Subseq Hosp Care Lvl 3
[2020-06-13 19:26] LABS: Partial Thromboplastin Ratio 3.2
[2020-06-13 20:26] LABS: Partial Thromboplastin Time 88.6 Seconds (21.0-31.0)
[2020-06-14] MEDS: LEVALBUTEROL HCL 0.63 MG/3 ML NEB NEB SCH ×5 (00:30→18:56)
[2020-06-14] MEDS: IPRATROPIUM BROMIDE NEB SOLN 0.02% 2.5 ML VIAL INH SCH ×5 (00:30→18:56)
[2020-06-14] MEDS: LEVOTHYROXINE SODIUM 100 MCG TABLET PO SCH (04:35)
[2020-06-14] MEDS: methylPREDNISolone 20 MG in SYRINGE 0 ML IV SCH ×3 (04:35→20:21)
[2020-06-14 07:37] LABS: Hematocrit (blood only) 34.1 % (37-47); Hemoglobin 11.4 g/dL (12.0-16.0); Immature Granulocytes # (auto) 0.02 K/uL (0.00-0.02); Immature Granulocytes % (auto) 0.2 %; Lymphocytes # (auto) 1.18 K/uL (1.2-3.4); Lymphocytes % (auto) 10.2 %; Mean Corpuscular Hemoglobin 27.5 pg (25-34); Mean Corpuscular Hgb Conc 33.4 g/dL (32-36); Mean Corpuscular Volume 82.2 fL (80-100); Mean Platelet Volume 10.1 fL (7.4-10.4); Monocytes # (auto) 0.41 K/uL (0.11-0.59); Monocytes % (auto) 3.5 %; Neutrophils # (auto) 9.96 K/uL (1.4-6.5); Neutrophils % (auto) 86.1 %; Platelet Count 357 K/uL (130-400); RDW Coefficient of Variation 15.6 % (11.5-14.5); Red Blood Count 4.15 M/uL (4.2-5.4); White Blood Count 11.57 K/uL (4.8-10.8)
[2020-06-14 07:48] LABS: Prothrombin Time 10.8 Seconds (9.0-12.0)
[2020-06-14] MEDS: lisinopriL 5 MG TAB PO SCH (07:56)
[2020-06-14] MEDS: CYANOCOBALAMIN 500 MCG TABLET (VITAMIN B-12) PO SCH (07:56)
[2020-06-14] MEDS: CITALOPRAM 40 MG TAB PO SCH (07:56)
[2020-06-14] MEDS: DOCUSATE SODIUM/SENNA 50/8.6MG TAB PO SCH ×2 (07:56→20:22)
[2020-06-14] MEDS: CHOLECALCIFEROL 1,000 UNITS 25 MCG TAB PO SCH (07:57)
[2020-06-14] MEDS: CLOPIDOGREL BISULFATE 75 MG TAB PO SCH (07:57)
[2020-06-14] MEDS: PANTOprazole 40 MG TAB PO SCH (07:57)
[2020-06-14] MEDS: AMLODIPINE BESYLATE 5 MG TAB PO SCH (07:57)
[2020-06-14] MEDS: OXYBUTYNIN CHLORIDE 5 MG TAB PO SCH ×2 (07:57→20:22)
[2020-06-14] MEDS: carvediloL 12.5 MG TAB PO SCH (07:57)
[2020-06-14] MEDS: MULTIVITAMIN TAB PO SCH (07:57)
[2020-06-14] MEDS: ATORVASTATIN 40 MG TAB PO SCH (07:57)
[2020-06-14] MEDS: MAGNESIUM OXIDE 400 MG TAB PO SCH (07:58)
[2020-06-14] MEDS: NYSTATIN POWDER 15GM BTL EXT SCH ×2 (07:58→20:22)
[2020-06-14] MEDS: UMECLIDINIUM BROMIDE 62.5MCG/BLISTER 7 PUFFS/INHALER INH SCH (07:58)
--- NOTE | 2020-06-14 12:59 | Hospitalist Progress Note ---
Date of Service June 14, 2020 Assessment & Plan (1) SOB (shortness of breath): Sage Hoover is an 85 year old female with COPD, aortic stenosis, paroxysmal atrial fibrillation, pacemaker placement, carotid artery stenosis, history of VA, history of stroke, Crohn's s/p colectomy, hypothyroidism, depression, anxiety, and Meniere's disease who presents with an 8-10 day history of weakness, dizziness, fatigue, and shortness of breath. EKG today was reassuring. Given the evolution of her clinical course, failure to improve on IV steroids, and detailed description of symptoms, it appears most likely that her symptoms are due to worsening aortic stenosis. Progressive aortic stenosis -increased carvedilol dose from 12.5mg PO bid to 18.75mg PO bid -increased lisinopril dose from 5mg PO qd to 10mg PO qd -awaiting full echo interpretation -appreciate cardiology recommendations on intervention, possible TAVR COPD -d/c methylprednisolone IV 20mg q8hr due to failure to improve and very low likelihood that this is a COPD exacerbation -c/w ipratropium bromide inhaler 0.5mg q6hr -c/w levalbuterol nebulizer 0.63mg q6hr -c/w umeclidinium inhaler 1 puff qd EKG changes: repeat EKG did not continue to have concerning changes -d/c heparin drip -d/c nitroglycerin paste 1 inch -c/w nitroglycerin 0.4mg sublingual PRN -c/w clopidogrel 75mg PO qAM -c/w atorvastatin 40mg PO qAM Paroxysmal atrial fibrillation -c/w amlodipine 5mg PO qAM Hypothyroidism -levothyroxine 100mcg PO qd GERD -pantoprazole 40mg PO qAM Depression, anxiety -c/w citalopram 40mg PO qAM -trazodone 50mg PO qhs Meniere's disease -c/w meclizine 12.5mg PO q8h Stress/urge incontinence -c/w oxybutynin 5mg PO bid (2) Dizziness: (3) Artificial cardiac pacemaker: (4) Urge and stress incontinence: (5) History of stroke: (6) History of myocardial infarction: (7) Paroxysmal atrial fibrillation: (8) Esophageal reflux: (9) Colitis: (10) Aortic stenosis: (11) S/P colectomy: (12) Hypothyroidism: (13) Atrial fibrillation: (14) Meniere's disease: (15) Acute UTI: Admission and Anticipated Discharge Date Admission Date: June 12, 2020 Supervising Physician Co-Signing Physician Notes I personally examined the patient and verified all sarabia points of history and exam, discussed case, and agree with decision making with Dr Looney feels about the same. updated grandson colette jensen (anesthesia here) ongoing dawkins -- he notes due to COVID he hadn't really seen her in person for about 6 months and saw a large decline in her ability to exert/way worse DAWKINS/etc - did note that she's had longstanding deconditioning as well too vitals noted nad heent nc at mmm breathing unlabored, no accessory msucles d/w cardiology DAWKINS -ddx being mediated, vs lung disease -treatment of COPD exacerbation has not really helped much - making reversible lung causes less likely. will stop steroids -PFTs and CT chest to better define extent of lung disease and plausibility on this causing her DAWKINS -cardiology to continue to eval (?stress to eval functional status w ?) (increased coreg and lisinopril to try to better effect hemodynamics in this respect) otherwise as above Subjective Patient is alert and awake this morning, complaining primarily of disorientation and hallucinations overnight that resolved this morning. She continues to reporting moderate shortness of breath and continued dizziness, weakness, and fatigue, although none of these symptoms have worsened. Patient denies headache, cough, abdominal pain, nausea, vomiting, fever, chills, or sweats. Review of Systems Constitutional: + fatigue and + weakness; no fever, no chills and no sweats Respiratory: + dyspnea; no cough Cardiovascular: + lightheadedness; no chest pain, no radiating jaw, neck or arm pain and no palpitations Genitourinary: no dysuria Neurologic: no numbness and no radiating pain Physical Exam Constitutional: well nourished and + ill appearing; no acute distress and no altered mental status Respiratory: normal respiratory effort Auscultation: + wheezes (mild expiratory wheezes) Cardiovascular: Rate/Rhythm: regular rate and regular rhythm Heart Sounds: + murmur (grade 5/6 systolic crescendo-decrescendo murmur) Gastrointestinal (Abdomen): normal bowel sounds, soft, nontender, no hepatosplenomegaly Results & Data Results & Data ([facility]) Vital Signs (Past 12 Hours) Vital Signs Temp Pulse Pulse Resp BP Pulse Ox 06/14/20 11:10 36.6 C 79 18 166/79 H 96 06/14/20 08:10 36.2 C L 97 H 19 159/68 H 93 06/14/20 07:25 72 22 96 06/14/20 04:27 36.6 C 104 H 21 145/65 H 95 06/14/20 01:45 81 18 92 Resident Activity Tracking Resident Involvement: Resident Care Provided Care Provided: Adult Hospital Medicine
--- NOTE | 2020-06-14 13:52 | Cardiology Progress Note ---
Date of Service June 14, 2020 Assessment & Plan (1) SOB (shortness of breath): Her shortness of breath still seems out of proportion to the findings on her echocardiogram. She is not hypoxic although she is short of breath at rest, she does not seem to be in heart failure on exam or by chest x-ray and this does not seem likely to be due to her aortic stenosis. I will review findings tomorrow morning with my partners to see if they feel any further testing (such as stress testing or even catheterization) is indicated to make sure we are not missing aortic stenosis of a greater degree than it appears. (2) Aortic stenosis: She has known aortic stenosis, her valve area and gradient were not to the point where we would expect severe symptoms, especially at rest, without left ventricular dysfunction. (3) Artificial cardiac pacemaker: Her pacemaker appears to be working well on telemetry, I did not interrogate it (4) Dizziness: She is complaining of ongoing dizziness, perhaps that is associated to some extent with low blood pressure although her blood pressure does not seem very low here although it is somewhat labile. Admission and Anticipated Discharge Date Admission Date: June 12, 2020 Subjective Today she complains of having a bad night, she feels that she had shortness of breath, lightheadedness and weakness overnight. When specifically asked about her breathing she still complains of being very short of breath, even in bed. She is lying supine in bed when I saw her today, she does not appear short of breath. No chest discomfort. Physical Exam Physical Exam: Constitutional: Alert, cooperative and in no distress. HEENT: Unremarkable Neck: No jugular venous distention, carotid pulses are normal and equal bilater ally without bruits. Pulmonary: Clear to auscultation bilaterally but with decreased breath sounds. Cardiac: Regular rhythm with a grade 2/6 crescendo decrescendo murmur at the base with radiation to her carotids, no gallop or rub. Abdomen: Soft, nontender with normal bowel sounds. Extremities: No edema. Distal pulses intact. Neurologic: No focal findings. Gait is steady. Skin: The device site is well-healed without erythema, swelling or tenderness. No rash, ecchymoses or petechiae. Results & Data ([facility]) Vital Signs (Past 12 Hours) Vital Signs Temp Pulse Pulse Resp BP Pulse Ox 06/14/20 13:30 79 20 95 06/14/20 11:10 36.6 C 79 18 166/79 H 96 06/14/20 08:10 36.2 C L 97 H 19 159/68 H 93 06/14/20 07:25 72 22 96 06/14/20 04:27 36.6 C 104 H 21 145/65 H 95 Laboratory Results Cardiac Enzymes 06/13/20 Range/Units 14:41 Troponin I < 0.015 (0-0.045) ng/ml Coagulation 06/13/20 06/13/20 06/14/20 Range/Units 16:03 18:57 07:05 PT 10.8 (9.0-12.0) Seconds APTT > 139.0 H* 88.6 H* (21.0-31.0) Seconds CBC 06/14/20 Range/Units 07:05 WBC 11.57 H (4.8-10.8) K/uL RBC 4.15 L (4.2-5.4) M/uL Hgb 11.4 L (12.0-16.0) g/dL Hct 34.1 L (37-47) % Plt Count 357 (130-400) K/uL Neut # (Auto) 9.96 H (1.4-6.5) K/uL Lymph # (Auto) 1.18 L (1.2-3.4) K/uL [place] # (Auto) 0.41 (0.11-0.59) K/uL Eos # (Auto) 0.00 (0-0.5) K/uL Baso # (Auto) 0.00 (0-0.2) K/uL Intake and Output 06/13/20 06/14/20 06/14/20 22:59 06:59 14:59 Intake Total 217 / 557 Output Total 100 / 1450 850 / 1450 Balance 117 / -893 -850 / -893 Intake: IV 117 / 117 HEPARIN SODIUM/DEXTROSE 25,000 117 / 117 units In 500 ml @ 0 UNITS/HR IV .Q0M [facility] Rx#:[id number] Oral 100 / 440 Output: Urine 100 / 1350 850 / 1350 Diagnostic Findings Telemetry: Sinus rhythm 70s to 80s Echocardiogram:Her echo shows moderate to severe aortic stenosis with a calculated valve area of 1.2 cm and a peak gradient of 35 mmHg. Her last echocardiogram in the office about 6 months ago showed a calculated valve area of 1 cm and a peak gradient of 30.5 mmHg. Obviously there is a lot of variability with these measures, but the valve area and gradient have not changed dramatically since her last and her LV function remains normal. PG Care Time/CCT Total # of Minutes Spent Total Time Spent with Patient: Total time spent is greater than 50% in coordination of care (as documented) at patient's floor/unit and/or counseling patient: Coding Level of Care Code 25802 Subseq Hosp Care Lvl 3 Diagnoses SOB (shortness of breath) R06.02 Aortic stenosis I35.0 Artificial cardiac pacemaker Z95.0 Dizziness R42
--- NOTE | 2020-06-14 19:23 | Billing Data ---
Date of Service June 14, 2020 Coding Level of Care Code 67222 Subseq Hosp Care Lvl 3
[2020-06-14] MEDS: carvediloL 6.25 MG TAB PO SCH (20:22)
[2020-06-15] MEDS: IPRATROPIUM BROMIDE NEB SOLN 0.02% 2.5 ML VIAL INH SCH ×4 (01:15→19:37)
[2020-06-15] MEDS: LEVALBUTEROL HCL 0.63 MG/3 ML NEB NEB SCH ×4 (01:15→19:37)
[2020-06-15] MEDS: methylPREDNISolone 20 MG in SYRINGE 0 ML IV SCH ×3 (04:13→19:53)
[2020-06-15] MEDS: LEVOTHYROXINE SODIUM 100 MCG TABLET PO SCH (04:13)
[2020-06-15 06:50] LABS: Hematocrit (blood only) 33.3 % (37-47); Immature Granulocytes # (auto) 0.03 K/uL (0.00-0.02); Immature Granulocytes % (auto) 0.3 %; Lymphocytes # (auto) 1.54 K/uL (1.2-3.4); Lymphocytes % (auto) 16.6 %; Mean Corpuscular Hemoglobin 26.9 pg (25-34); Mean Corpuscular Volume 81.4 fL (80-100); Mean Platelet Volume 10.1 fL (7.4-10.4); Monocytes # (auto) 0.63 K/uL (0.11-0.59); Monocytes % (auto) 6.8 %; Neutrophils # (auto) 7.09 K/uL (1.4-6.5); Neutrophils % (auto) 76.3 %; Platelet Count 349 K/uL (130-400); RDW Coefficient of Variation 15.8 % (11.5-14.5); RDW Standard Deviation 46.8 fL (36.4-46.3); Red Blood Count 4.09 M/uL (4.2-5.4); White Blood Count 9.29 K/uL (4.8-10.8)
[2020-06-15 07:00] LABS: INR 1.1 (0.9-1.1); Prothrombin Time 11.1 Seconds (9.0-12.0)
--- NOTE | 2020-06-15 08:11 | Electrocardiogram Report ---
Test Reason : Blood Pressure : / mmHG Vent. Rate : 078 BPM Atrial Rate : 078 BPM P-R Int : 154 ms QRS Dur : 084 ms QT Int : 408 ms P-R-T Axes : 089 -07 072 degrees QTc Int : 465 ms Normal sinus rhythm Diffuse Nonspecific T wave abnormality Abnormal ECG When compared with ECG of 17-MAR-2019 11:33, Criteria for Septal infarct are no longer Present Otherwise no significant change Confirmed by Jam Chaidez ([id number]) on 06/15/2020 8:11:10 AM Referred By: REFERRED SELF Confirmed By:Jam Chaidez
[2020-06-15] MEDS: CITALOPRAM 40 MG TAB PO SCH (08:20)
[2020-06-15] MEDS: lisinopriL 10 MG TAB PO SCH (08:20)
[2020-06-15] MEDS: CYANOCOBALAMIN 500 MCG TABLET (VITAMIN B-12) PO SCH (08:20)
[2020-06-15] MEDS: MAGNESIUM OXIDE 400 MG TAB PO SCH (08:21)
[2020-06-15] MEDS: ATORVASTATIN 40 MG TAB PO SCH (08:21)
[2020-06-15] MEDS: PANTOprazole 40 MG TAB PO SCH (08:21)
[2020-06-15] MEDS: UMECLIDINIUM BROMIDE 62.5MCG/BLISTER 7 PUFFS/INHALER INH SCH (08:21)
[2020-06-15] MEDS: DOCUSATE SODIUM/SENNA 50/8.6MG TAB PO SCH ×2 (08:21→19:57)
[2020-06-15] MEDS: OXYBUTYNIN CHLORIDE 5 MG TAB PO SCH ×2 (08:21→19:56)
[2020-06-15] MEDS: AMLODIPINE BESYLATE 5 MG TAB PO SCH (08:21)
[2020-06-15] MEDS: MULTIVITAMIN TAB PO SCH (08:21)
[2020-06-15] MEDS: carvediloL 6.25 MG TAB PO SCH ×2 (08:21→19:57)
[2020-06-15] MEDS: CLOPIDOGREL BISULFATE 75 MG TAB PO SCH (08:21)
[2020-06-15] MEDS: NYSTATIN POWDER 15GM BTL EXT SCH ×2 (08:22→19:57)
--- NOTE | 2020-06-15 08:40 | CT Scan Report ---
CT OF THE CHEST WITHOUT IV CONTRAST CLINICAL HISTORY: MACARIO, ?interstitial lung disease COMPARISON STUDY: Chest CT May 22, 2019. Chest radiograph June 12, 2020. CT DOSE: 192.08 mGy.cm TECHNIQUE: Axial images of the chest were obtained without IV contrast. Images were reviewed in the axial, sagittal, and coronal planes. IV contrast was not administered for this examination. Automat ed exposure control was utilized for the study. A dose lowering technique was utilized adhering to t he principles of ALARA. FINDINGS: Mild dilatation of the ascending aorta, measuring 4 cm, is unchanged. Dual-lead left pacem skip is in place. There is no pericardial effusion. No enlarged thoracic lymph nodes are present. Car diac size is stable. Central airways are patent. A 1.2 cm subpleural left lower lobe opacity on image 148 of 286 is unchanged since exam of January 08, 2018. This represents scarring. Diffuse bronchial wa ll thickening with mild multifocal mucus plugging and scattered tiny tree-in-bud nodules is noted. No dularity has improved since CT of May 22, 2019. There is no consolidation to suggest pneumonia. No p neumothorax or pleural effusion is noted. There are multiple old bilateral rib fractures. Mild right collecting system dilatation is unchanged from earlier exams. There are several left-sided cortical a nd parapelvic renal cysts. IVC filter is partially imaged. Postoperative findings within the lumbar s pine are partially imaged. There are spine compression deformities. IMPRESSION: 1. No consolidation. 2. Scattered small tree-in-bud nodules, diffuse bronchial wall thickening and multifocal mucus pluggi ng, improved since CT of May 22, 2019. This may reflect bronchiolitis. 3. Mild right collecting system dilatation which is unchanged since prior exams. ACT 112: Negative or not required by law. Electronically signed by: Sancho Carl M.D. 06/15/2020 8:38 AM
--- NOTE | 2020-06-15 08:55 | Electrocardiogram Report ---
Test Reason : Blood Pressure : / mmHG Vent. Rate : 070 BPM Atrial Rate : 070 BPM P-R Int : 156 ms QRS Dur : 086 ms QT Int : 444 ms P-R-T Axes : 086 -44 252 degrees QTc Int : 479 ms Normal sinus rhythm Left axis deviation Diffuse Nonspecific T wave abnormality Abnormal ECG When compared with ECG of 12-JUN-2020 18:05, No significant change Confirmed by Jam Chaidez ([id number]) on 06/15/2020 8:54:48 AM Referred By: REFERRED SELF Confirmed By:Jam Chaidez
--- NOTE | 2020-06-15 09:45 | Electrocardiogram Report ---
Test Reason : Blood Pressure : / mmHG Vent. Rate : 083 BPM Atrial Rate : 083 BPM P-R Int : 160 ms QRS Dur : 086 ms QT Int : 428 ms P-R-T Axes : 077 -43 074 degrees QTc Int : 502 ms Normal sinus rhythm Left axis deviation Abnormal ECG When compared with ECG of 13-JUN-2020 06:33, No significant change Confirmed by Jam Chaidez ([id number]) on 06/15/2020 9:45:15 AM Referred By: REFERRED SELF Confirmed By:Jam Chaidez
[2020-06-15] MEDS: CHOLECALCIFEROL 1,000 UNITS 25 MCG TAB PO SCH (09:53)
--- NOTE | 2020-06-15 11:45 | Hospitalist Progress Note ---
Date of Service June 15, 2020 Assessment & Plan (1) SOB (shortness of breath): Sage Hoover is an 85 year old female with COPD, aortic stenosis, paroxysmal atrial fibrillation, pacemaker placement, carotid artery stenosis, history of SC, history of stroke, Crohn's s/p colectomy, hypothyroidism, depression, anxiety, and Meniere's disease who presents with an 8-10 day history of weakness, dizziness, fatigue, and shortness of breath. Due to lack of clinical improvement on steroids, COPD exacerbation seems less likely. Cardiology has been consulting on the case--remarked in previous note that it seemed unlikely aortic stenosis was the cause of the patient's symptoms but would consider further evaluation (stress test or even catheterization). Dyspnea with exertion - possibly sec to worsening /Pul htn sec to copd/?pul fibrosis from macrodantin/?mycobacterium infection/?restrictive lung ds from kyphosis/?CAD/anxiety - reviewed recent pulmonary consultation note. - consider pul evalulation if JACK inconclusive. Progressive aortic stenosis - Echo: EF=65-70%; normal LV systolic function; moderate LVH, Grade I diastolic dysfunction; moderate to severe aortic stenosis; RV systolic pressure elevated at 40-50mmHg - Per discussion with cardiology- will do a JACK to further evaluate - Will f/u on results and cardiology recommendations HTN - continue carvedilol 18.75mg PO bid - continue lisinopril 10mg PO qd Concern of COPD exacerbation - Elevation of RV systolic pressure pointing to pulmonary hypertension, likely secondary to COPD - d/aden methylprednisolone IV 20mg q8hr due to failure to improve and very low likelihood that this is a COPD exacerbation - c/w ipratropium bromide inhaler 0.5mg q6hr - c/w levalbuterol nebulizer 0.63mg q6hr - c/w umeclidinium inhaler 1 puff qd CAD - c/w nitroglycerin 0.4mg sublingual PRN - c/w clopidogrel 75mg PO qAM - c/w atorvastatin 40mg PO qAM - B han, ACEi Paroxysmal atrial fibrillation - HR 78. - c/w carvedilol. - will investigate further why patient not on Anticoagulation. Hypothyroidism - levothyroxine 100mcg PO qd GERD - pantoprazole 40mg PO qAM Depression, anxiety - c/w citalopram 40mg PO qAM - trazodone 50mg PO qhs Meniere's disease - c/w meclizine 12.5mg PO q8h Stress/urge incontinence - c/w oxybutynin 5mg PO bid FEN - diet. No IVF Code status - DNR DVT prophylaxis - add lovenox. (2) Dizziness: (3) Artificial cardiac pacemaker: (4) Urge and stress incontinence: (5) History of stroke: (6) History of myocardial infarction: (7) Paroxysmal atrial fibrillation: (8) Esophageal reflux: (9) Colitis: (10) Aortic stenosis: (11) S/P colectomy: (12) Hypothyroidism: (13) Atrial fibrillation: (14) Meniere's disease: (15) Acute UTI: Admission and Anticipated Discharge Date Admission Date: June 12, 2020 Supervising Physician Co-Signing Physician Notes Resident Physician Supervision Note: I independently interviewed and examined the patient and verified the sarabia history and physical, reviewed labs and image studies, discussed the case with the resident Dr. Ahumada and agree with the findings and care plan. Subjective Patient continues to complain today of SOB, weakness, and fatigue but says she feels better, though only while laying down. She reports that she's been declining progressively for the past 6 months to the point that she isn't able to walk around her house or go out to walk her dogs anymore, which she was previously able to do. Patient was wanting to try to walk around overnight but her nurse advised against it. No disorientation overnight. Denies CP, palpitations, cough, abdominal pain, nausea, vomiting, fever, chills, sweats. Review of Systems Constitutional: + fatigue and + weakness; no fever, no chills and no sweats Respiratory: + dyspnea; no cough Cardiovascular: no chest pain, no radiating jaw, neck or arm pain and no palpitations Physical Exam Constitutional: well nourished and + ill appearing; no acute distress and no altered mental status Respiratory: normal respiratory effort Auscultation: + wheezes (mild expiratory wheezes) Cardiovascular: Rate/Rhythm: regular rate and regular rhythm Heart Sounds: + murmur (grade 5/6 systolic crescendo-decrescendo murmur) Results & Data Results & Data ([facility]) Vital Signs (Past 12 Hours) Vital Signs Temp Pulse Pulse Pulse Resp BP Pulse Ox 06/15/20 11:08 36.5 C 76 19 165/74 H 96 06/15/20 07:21 75 18 94 06/15/20 07:14 89 06/15/20 07:04 36.6 C 73 18 159/67 H 94 06/15/20 04:17 36.6 C 88 20 160/72 H 92 06/15/20 00:19 36.5 C 91 H 20 147/79 H 94 Resident Activity Tracking Resident Involvement: Resident Care Provided Care Provided: Adult Hospital Medicine
[2020-06-15] MEDS ORDERED: fentaNYL citrate 100 MCG/2 ML VIAL ONE (13:43)
[2020-06-15] MEDS ORDERED: MIDAZOLAM HCL 1 MG/ML 2ML VIAL ONE (13:44)
--- NOTE | 2020-06-15 15:48 | XCELERA ---
[id number]
--- NOTE | 2020-06-15 16:03 | Cardiology Progress Note ---
Date of Service June 15, 2020 Assessment & Plan (1) Severe aortic stenosis: Given advanced age and significant underlying pulmonary disease, she would be a poor candidate for standard open surgical valve replacement. However, she would seem to be an appropriate candidate for transvenous aortic valve replacement (TAVR). She will discuss this with family members and convey her wishes for next steps. If she does decide to proceed, could obtain pre-TAVR cardiac catheterization here as a next step. I did speak with her grandson (Dean Acosta MD, anesthesiology at [facility]), he will help facilitate the conversation regarding potential TAVR. (2) COPD exacerbation: She does have significant underlying lung disease on exam, chest x-ray, and CT scan. However, her progressive symptoms over the past 6 months and the degree of aortic stenosis strongly suggest that her valvular disease plays a major role in her exertional dyspneic symptoms. As such, she likely would benefit from TAVR. (3) Shortness of breath: Unclear to what degree her dyspneic symptoms are due to pulmonary disease versus aortic valvular disease, however only the aortic stenosis is likely to be remediable. Given the severity of her aortic stenosis, would be surprised if she does not have some degree of symptomatic improvement if she were to undergo TAVR. (4) Artificial cardiac pacemaker: As per Dr. Gaxiola, appears to be functioning appropriately. (5) Hypertension: BP variable, normotensive presently. Would avoid aggressively treating her hypertension in the context of severe aortic stenosis. Admission and Anticipated Discharge Date Admission Date: June 12, 2020 Subjective Patient notes that her breathing is much improved since initiating supplemental oxygen at rest. She still notes marked dyspnea with any exertion. No chest pain, palpitations, presyncope, or syncope. Physical Exam Physical Exam: No distress. Skin: no ecchymoses or generalized lesions. HEENT: unremarkable. Neck: no JVD, carotids with bilateral transmitted murmur. Lungs: Moderately decreased breath sounds with diffuse rhonchi and occasional expiratory wheeze. No accessory muscle use, intercostal retraction, or abdominal paradox. Cardiac: regular rhythm with 3/6 crescendo decrescendo systolic ejection murmur right upper sternal border radiating to the carotids, left sternal border, and apex. Absent aortic closure sound. No diastolic murmur or gallop. Abdomen benign. Extremities: no edema, pulses intact. Neurologic: normal affect and conversation, grossly nonfocal. Results & Data ([facility]) Diagnostic Findings Transesophageal echocardiogram showed severe aortic stenosis (calculated valve area 0.7 cm), mild mitral regurgitation, moderate atherosclerotic aortic plaquing, and normal left ventricular systolic function with moderate left ventricular hypertrophy. PG Care Time/CCT Total # of Minutes Spent Total Time Spent with Patient: Total time spent is greater than 50% in coordination of care (as documented) at patient's floor/unit and/or counseling patient: Coding Level of Care Code 35381 Subseq Hosp Care Lvl 3 Diagnoses Severe aortic stenosis I35.0 COPD exacerbation J44.1 Shortness of breath R06.02 Artificial cardiac pacemaker Z95.0 Hypertension I10
[2020-06-15] MEDS ORDERED: ENOXAPARIN INJ 40 MG/0.4 ML SYR SQ SCH (18:45)
[2020-06-15] MEDS: HEPARIN SOD 5,000 UNIT/0.5 ML VIAL SC SCH (20:00)
[2020-06-16] MEDS: IPRATROPIUM BROMIDE NEB SOLN 0.02% 2.5 ML VIAL INH SCH ×4 (01:34→19:33)
[2020-06-16] MEDS: LEVALBUTEROL HCL 0.63 MG/3 ML NEB NEB SCH ×4 (01:34→19:34)
[2020-06-16] MEDS: methylPREDNISolone 20 MG in SYRINGE 0 ML IV SCH ×3 (04:08→20:13)
[2020-06-16] MEDS: LEVOTHYROXINE SODIUM 100 MCG TABLET PO SCH (06:18)
[2020-06-16] MEDS: AMLODIPINE BESYLATE 5 MG TAB PO SCH (08:37)
[2020-06-16] MEDS: CITALOPRAM 40 MG TAB PO SCH (08:37)
[2020-06-16] MEDS: CYANOCOBALAMIN 500 MCG TABLET (VITAMIN B-12) PO SCH (08:37)
[2020-06-16] MEDS: ATORVASTATIN 40 MG TAB PO SCH (08:38)
[2020-06-16] MEDS: MULTIVITAMIN TAB PO SCH (08:38)
[2020-06-16] MEDS: lisinopriL 10 MG TAB PO SCH (08:38)
[2020-06-16] MEDS: carvediloL 6.25 MG TAB PO SCH ×2 (08:38→20:14)
[2020-06-16] MEDS: OXYBUTYNIN CHLORIDE 5 MG TAB PO SCH ×2 (08:38→20:15)
[2020-06-16] MEDS: CHOLECALCIFEROL 1,000 UNITS 25 MCG TAB PO SCH (08:39)
[2020-06-16] MEDS: CLOPIDOGREL BISULFATE 75 MG TAB PO SCH (08:39)
[2020-06-16] MEDS: PANTOprazole 40 MG TAB PO SCH (08:39)
[2020-06-16] MEDS: MAGNESIUM OXIDE 400 MG TAB PO SCH (08:39)
[2020-06-16] MEDS: DOCUSATE SODIUM/SENNA 50/8.6MG TAB PO SCH ×2 (08:40→20:16)
[2020-06-16] MEDS: UMECLIDINIUM BROMIDE 62.5MCG/BLISTER 7 PUFFS/INHALER INH SCH (08:40)
[2020-06-16] MEDS: HEPARIN SOD 5,000 UNIT/0.5 ML VIAL SC SCH ×2 (08:41→20:13)
[2020-06-16] MEDS: NYSTATIN POWDER 15GM BTL EXT SCH ×2 (08:41→20:15)
--- NOTE | 2020-06-16 13:17 | Cardiology Progress Note ---
Date of Service June 16, 2020 Assessment & Plan (1) Severe aortic stenosis: Next step in risk stratification will be to obtain cardiac catheterization. Once family members and patient have consulted and decide to proceed, please inform Dr. Joel Parrish and he will arrange for cardiac catheterization. Subsequently, arrangements can be made for TAVR if this is appropriate. (2) COPD exacerbation: Pulmonary status was stable. (3) Shortness of breath: Unclear to what degree her dyspneic symptoms are due to pulmonary disease versus aortic valvular disease, however only the aortic stenosis is likely to be remediable. Given the severity of her aortic stenosis, would be appropriate to further pursue potential TAVR. (4) Artificial cardiac pacemaker: As per Dr. Gaxiola, appears to be functioning appropriately. (5) Hypertension: BP variable but tending toward hypertensive. Despite this, would avoid aggressively treating her hypertension in the context of severe aortic stenosis. Admission and Anticipated Discharge Date Admission Date: June 12, 2020 Subjective Uneventful night. Patient sitting comfortably. She still notes marked dyspnea with any exertion. No chest pain, palpitations, presyncope, or syncope. Physical Exam Physical Exam: No distress. Skin: no ecchymoses or generalized lesions. HEENT: unremarkable. Neck: no JVD, carotids with bilateral transmitted murmur. Lungs: Moderately decreased breath sounds with diffuse rhonchi and occasional expiratory wheeze. No accessory muscle use, intercostal retraction, or abdominal paradox. Cardiac: regular rhythm with 3/6 crescendo decrescendo systolic ejection murmur right upper sternal border radiating to the carotids, left sternal border, and apex. Absent aortic closure sound. No diastolic murmur or gallop. Abdomen benign. Extremities: no edema, pulses intact. Neurologic: normal affect and conversation, grossly nonfocal. Results & Data ([facility]) Diagnostic Findings Transesophageal echocardiogram showed severe calcific aortic stenosis (calcu lated valve area 0.7 cm), mild mitral regurgitation, and moderate atherosclerotic plaquing of the aortic arch. Injection of contrast documented no interatrial shunt. PG Care Time/CCT Total # of Minutes Spent Total Time Spent with Patient: Total time spent is greater than 50% in coordination of care (as documented) at patient's floor/unit and/or counseling patient: Coding Level of Care Code 47440 Subseq Hosp Care Lvl 3 Diagnoses Severe aortic stenosis I35.0 COPD exacerbation J44.1 Shortness of breath R06.02 Artificial cardiac pacemaker Z95.0 Hypertension I10
--- NOTE | 2020-06-16 16:19 | Hospitalist Progress Note ---
Date of Service June 16, 2020 Assessment & Plan (1) SOB (shortness of breath): Sage Hoover is an 85 year old female with COPD, aortic stenosis, paroxysmal atrial fibrillation, pacemaker placement, carotid artery stenosis, history of MT, history of stroke, Crohn's s/p colectomy, hypothyroidism, depression, anxiety, and Meniere's disease who presents with an 8-10 day history of weakness, dizziness, fatigue, and shortness of breath. Dyspnea with exertion - possibly sec to worsening /Pul htn sec to copd/?pul fibrosis from macrodantin/?mycobacterium infection/?restrictive lung ds from kyphosis/?CAD/anxiety - JACK done--per cardiology, likely to play major role in dyspnea symptoms Progressive aortic stenosis - JACK: severe calcific aortic valve stenosis - Cardiology recommends cardiac catheterization as next step, subsequent TAVR if appropriate - Patient and family considering decision - F/U cath results & cardio recommendations if patient decides to proceed HTN - continue carvedilol 18.75mg PO bid - increased from 12.5mgs - continue lisinopril 10mg PO qd - increased from 5mgs. Concern of COPD exacerbation - Elevation of RV systolic pressure pointing to pulmonary hypertension, likely secondary to COPD - d/aden methylprednisolone IV 20mg q8hr due to failure to improve and very low likelihood that this is a COPD exacerbation - c/w ipratropium bromide inhaler 0.5mg q6hr - c/w levalbuterol nebulizer 0.63mg q6hr - c/w umeclidinium inhaler 1 puff qd CAD - c/w nitroglycerin 0.4mg sublingual PRN - c/w clopidogrel 75mg PO qAM - c/w atorvastatin 40mg PO qAM - B han, ACEi Paroxysmal atrial fibrillation - c/w carvedilol. - per cardiology note on 09/25/19: afib is limited to occasional short episodes--would not consider anticoagulation Complaint of dry mouth - Treat empirically with nystatin for oral thrush Pain in suture site, abdomen - Suture has been there for four years after surgery - consulted gen surgery for removal Hypothyroidism - levothyroxine 100mcg PO qd GERD - pantoprazole 40mg PO qAM Depression, anxiety - c/w citalopram 40mg PO qAM - trazodone 50mg PO qhs Meniere's disease - c/w meclizine 12.5mg PO q8h Stress/urge incontinence - c/w oxybutynin 5mg PO bid FEN - diet. No IVF Code status - DNR DVT prophylaxis - Heparin 5000 units SC q12H (2) Dizziness: (3) Artificial cardiac pacemaker: (4) Urge and stress incontinence: (5) History of stroke: (6) History of myocardial infarction: (7) Paroxysmal atrial fibrillation: (8) Esophageal reflux: (9) Colitis: (10) Aortic stenosis: (11) S/P colectomy: (12) Hypothyroidism: (13) Atrial fibrillation: (14) Meniere's disease: (15) Acute UTI: Admission and Anticipated Discharge Date Admission Date: June 12, 2020 Supervising Physician Co-Signing Physician Notes Resident Physician Supervision Note: I independently interviewed and examined the patient and verified the sarabia history and physical, reviewed labs and image studies, discussed the case with the resident Dr. Ahumada and agree with the findings and care plan. Subjective Patient says she feels the same as yesterday. Still short of breath when exerting herself. She has some throat discomfort and coughing after her JACK. Also complains of some pain near the site of her hernia surgery, which turns out to be a suture that has been there for years. No further complaints. Denies fever, headache, CP, palpitation, cough,nausea, vomiting, abdominal pain. Review of Systems Constitutional: + fatigue; no fever, no chills and no sweats Respiratory: + dyspnea on exertion; no cough, no pain on inspiration and no wheezing Cardiovascular: + dyspnea on exertion; no chest pain and no edema Gastrointestinal: no nausea and no vomiting Physical Exam Constitutional: well nourished and + ill appearing; no acute distress and no altered mental status Respiratory: normal respiratory effort Auscultation: + wheezes (mild expiratory wheezes) Cardiovascular: Rate/Rhythm: regular rate and regular rhythm Heart Sounds: + murmur (grade 5/6 systolic crescendo-decrescendo murmur) Results & Data Results & Data ([facility]) Vital Signs (Past 12 Hours) Vital Signs Temp Pulse Pulse Pulse Resp BP Pulse Ox 06/16/20 14:32 94 06/16/20 13:45 86 18 95 06/16/20 11:14 83 06/16/20 11:04 36.6 C 79 19 170/65 H 94 06/16/20 07:11 36.7 C 81 18 176/67 H 93 06/16/20 07:07 75 16 95 Resident Activity Tracking Resident Involvement: Resident Care Provided Care Provided: Adult Hospital Medicine
[2020-06-16] MEDS: NYSTATIN SUSP 500,000 U/5 ML UDC PO SCH ×2 (18:08→20:13)
--- NOTE | 2020-06-16 21:17 | Surgery Consultation ---
Date of Consultation June 16, 2020 Assessment & Plan (1) S/P colectomy: -protruding suture is noted: -I offered to remove suture at this time but pt. noted she was too sore at the present time and asked that we perform sutire removal tomorrow -will reassess tomorrow History of Present Illness Attending Physician: Rabia Bardales MD History of Present Illness 85 year old female admitted secondary to SOB. She has a hx. of colectomy with colostomy "several years ago" and has a protruding suture that bothers her. We are asked to see fort this reason. Allergies Allergy/AdvReac Type Severity Reaction Status Date / Time adhesive tape Allergy Severe SKIN Verified 06/12/20 20:43 IRRITATION cashew nut Allergy Severe Hives Verified 06/12/20 20:43 shellfish derived Allergy Severe Shortness Verified 06/12/20 20:43 of Breath Sulfa (Sulfonamide Allergy Severe Hives Verified 06/12/20 20:43 Antibiotics) Home Medications Home Medications Medication Instructions Recorded Confirmed Type acetaminophen 650 mg PO BID PRN 09/29/18 06/12/20 History nitroglycerin [Nitrostat] 0.4 mg SUBLINGUAL DIRECTED PRN 09/29/18 06/12/20 History cholecalciferol (vitamin D3) 2,000 unit PO QAM 03/04/19 06/12/20 History [Vitamin D3] meclizine 12.5 mg PO Q8H PRN 03/17/19 06/12/20 History sennosides-docusate sodium 1 tab PO BID #1 tab 03/22/19 06/12/20 Rx [Senokot-S] multivitamin 1 tab PO DAILY 04/02/19 06/12/20 History magnesium oxide 400 mg (241.3 mg 400 mg PO DAILY #30 tab 06/25/19 06/12/20 Rx magnesium) tablet clopidogrel 75 mg tablet 75 mg PO QAM #90 tab 07/29/19 06/12/20 Rx pantoprazole 40 mg tablet,delayed 40 mg PO QAM #90 tab 07/29/19 06/12/20 Rx release amlodipine 5 mg tablet 5 mg PO QAM #90 tab 07/30/19 06/12/20 Rx atorvastatin 10 mg tablet 10 mg PO QAM #90 tab 07/30/19 06/12/20 Rx carvedilol 12.5 mg tablet 12.5 mg PO BID #90 tab 07/30/19 06/12/20 Rx lisinopril 10 mg tablet 5 mg PO QAM #45 tab 07/30/19 06/12/20 Rx cyanocobalamin (vitamin B-12) 500 500 mcg PO DAILY ea 09/01/19 06/12/20 History mcg lozenges levothyroxine 100 mcg tablet 100 mcg PO QAM #90 tab 10/21/19 06/12/20 Rx nystatin 100,000 unit/gram topical 1 appln TOP BID #30 gm 12/11/19 06/12/20 Rx powder citalopram 40 mg tablet 40 mg PO QAM #90 tab 12/16/19 06/12/20 Rx oxybutynin chloride 5 mg tablet 5 mg PO BID #60 tab 02/05/20 06/12/20 Rx tiotropium bromide 18 mcg capsule 1 cap INH DAILY #30 puffs 02/21/20 06/12/20 Rx with inhalation device diclofenac sodium 75 mg PO BID PRN 06/12/20 06/12/20 History nitrofurantoin macrocrystal 50 mg PO HS 06/12/20 06/12/20 History prednisone See Rx Instructions .ROUTE .COMPLEX 06/12/20 06/12/20 History trazodone 50 mg PO HS PRN 06/12/20 06/12/20 History Patient History Medical History (Updated 06/15/20 @ 15:53 by Jam Chaidez MD) A-fib Abdominal wall abscess Anemia Artificial cardiac pacemaker Ascending aortic aneurysm Atrial fibrillation Calculus of kidney Chronic diarrhea Colitis Crohn's disease CVA, old, dysphagia Depression Dysphagia as late effect of cerebrovascular disease Esophageal reflux Failure to thrive Fall Gait disturbance History of DVT (deep vein thrombosis) History of myocardial infarction History of stroke Hypertension Hyperthyroidism Hypomagnesemia Hypothyroidism IBS (irritable bowel syndrome) Insomnia Left knee pain Multiple lung nodules on CT Multiple rib fractures Occlusion and stenosis of unspecified carotid artery Paroxysmal atrial fibrillation Pulmonary nodules SCCA (squamous cell carcinoma) of skin Spinal stenosis Stroke Swelling of knee joint Vitamin D deficiency Surgical History H/O ileostomy H/O: hysterectomy History of colostomy History of lumbar fusion S/P cataract surgery S/P colectomy S/P placement of cardiac pacemaker S/P thyroid surgery S/P tonsillectomy Family History Mother Depression Gallbladder disease Cardiac disorder Hypertension Kidney stones Father Lung cancer Grandmother (Maternal) Myocardial infarction Other Family history non-contributory Denies family history of Ovarian cancer Prostate cancer Breast cancer Colorectal cancer Social History Smoking Status: Never smoker Second Hand Exposure: No; Hx Alcohol Use: No Hx Substance Use: No Preferred Language: Nigerien Communication Ability: Effective Visual Impairment: No Limitations Hearing Ability: Use of Hearing Aid Body Component Engineer Required: No Beliefs That Will Affect Care: None marital status: / Current Living Situation: Spouse Current Living Situation Comment: Jail current occupational status: retired Feels Safe at Home: Yes Safety Concerns: Feels Safe At This Time Childhood Exposure to Second-Hand Smoke: Yes Dental Care, Regularly: Yes Physical Activity Frequency: Daily Seatbelt Use: always Sunscreen Use: No Physical Exam Gastrointestinal (Abdomen): Percussion/Palpation: abdomen soft; abdomen nontender large ventral hernia noted in midline superior to umbilicus. there is a suture end protruding through the skin along the lateral border of a previous incision. An ostomy is noted in the RUQ that appears viable. No eryt bernardo or warmth noted near any prior incisions. Results & Data ([facility]) Vital Signs (Past 12 Hours) Vital Signs Temp Pulse Pulse Pulse Resp BP Pulse Ox 06/16/20 20:04 36.8 C 81 18 171/81 H 98 06/16/20 19:34 83 18 95 06/16/20 16:12 36.2 C L 82 18 152/71 H 94 06/16/20 14:32 94 06/16/20 13:45 86 18 95 06/16/20 11:14 83 06/16/20 11:04 36.6 C 79 19 170/65 H 94 PG Care Time/CCT Total # of Minutes Spent Total Time Spent with Patient: Total time spent is greater than 50% in coordination of care (as documented) at patient's floor/unit and/or counseling patient: Coding Level of Care Code 96840 Inpt Consult Level 1 Diagnoses S/P colectomy Z90.49
[2020-06-17] MEDS: LEVALBUTEROL HCL 0.63 MG/3 ML NEB NEB SCH ×4 (01:28→19:18)
[2020-06-17] MEDS: IPRATROPIUM BROMIDE NEB SOLN 0.02% 2.5 ML VIAL INH SCH ×4 (01:28→19:19)
[2020-06-17] MEDS: methylPREDNISolone 20 MG in SYRINGE 0 ML IV SCH ×3 (04:02→20:20)
[2020-06-17] MEDS: LEVOTHYROXINE SODIUM 100 MCG TABLET PO SCH (05:58)
--- NOTE | 2020-06-17 07:09 | Hospitalist Progress Note ---
Date of Service June 17, 2020 Assessment & Plan (1) SOB (shortness of breath): Sage Hoover is an 85 year old female with COPD, aortic stenosis, paroxysmal atrial fibrillation, pacemaker placement, carotid artery stenosis, history of CT, history of stroke, Crohn's s/p colectomy, hypothyroidism, depression, anxiety, and Meniere's disease who presents with an 8-10 day history of weakness, dizziness, fatigue, and shortness of breath. 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 Severe likely to play significant role - Will need 2 step on discharge for Oxygen needs. Progressive aortic stenosis - JACK: severe calcific aortic valve stenosis - Cardiac catheterization: Mild to moderate non-obstructive CAD- 40-50% mid LAD stenosis - Cardiology recommends further evaluation for TAVR - Will be arranged for outpatient follow-up with [facility] cardiology by [facility] cardiology HTN - Trending toward hypertensive--cardiology recommends avoidance of aggressive treatment in context of severe - continue carvedilol 18.75mg PO bid - increased from 12.5mgs - continue lisinopril 10mg PO qd - increased from 5mgs. Concern of COPD exacerbation - Elevation of RV systolic pressure pointing to pulmonary hypertension, likely secondary to COPD - d/aden methylprednisolone IV 20mg q8hr due to failure to improve and very low likelihood that this is a COPD exacerbation - c/w ipratropium bromide inhaler 0.5mg q6hr - c/w levalbuterol nebulizer 0.63mg q6hr - c/w umeclidinium inhaler 1 puff qd CAD - c/w nitroglycerin 0.4mg sublingual PRN - c/w clopidogrel 75mg PO qAM - c/w atorvastatin 40mg PO qAM - B han, ACEi Paroxysmal atrial fibrillation - c/w carvedilol. - per cardiology note on 09/25/19: afib is limited to occasional short episodes--would not consider anticoagulation Complaint of dry mouth - Treat empirically with nystatin for oral thrush Pain in suture site, abdomen - Suture has been there for four years after surgery - consulted gen surgery for removal Hypothyroidism - levothyroxine 100mcg PO qd GERD - pantoprazole 40mg PO qAM Depression, anxiety - c/w citalopram 40mg PO qAM - trazodone 50mg PO qhs Meniere's disease - c/w meclizine 12.5mg PO q8h Stress/urge incontinence - c/w oxybutynin 5mg PO bid FEN - diet. No IVF Code status - DNR DVT prophylaxis - Heparin 5000 units SC q12H Dispo - - PT/OT recommend rehab placement after d/c--patient does not want this currently but will consider and discuss with family. (2) Dizziness: (3) Artificial cardiac pacemaker: (4) Urge and stress incontinence: (5) History of stroke: (6) History of myocardial infarction: (7) Paroxysmal atrial fibrillation: (8) Esophageal reflux: (9) Colitis: (10) Aortic stenosis: (11) S/P colectomy: (12) Hypothyroidism: (13) Atrial fibrillation: (14) Meniere's disease: (15) Acute UTI: (16) CKD (chronic kidney disease) stage 4, GFR 15-29 ml/min: Admission and Anticipated Discharge Date Admission Date: June 12, 2020 Supervising Physician Co-Signing Physician Notes Resident Physician Supervision Note: I independently interviewed and examined the patient and verified the sarabia history and physical, reviewed labs and image studies, discussed the case with the resident Dr. Ahumada and agree with the findings and care plan. Subjective Patient seen this morning at bedside. Reports feeling "about the same". Dyspnea on exertion, feels fine when laying down/sitting. Set to have cath today for pre-TAVR evaluation. Seen in PM post-catheterization--patient doing well, no complaints. Talked about PT/OT recommendation for rehab--patient says she would rather not go to another facility, would like help finding rehab at home. She did say that she would consider rehab facility and will talk over with her family. Denies CP, palpitations, fever, chills, nausea, vomiting, diarrhea. Review of Systems Constitutional: no fever, no chills, no malaise and no weakness Respiratory: + dyspnea on exertion; no cough Cardiovascular: no chest pain, no palpitations, no syncope and no edema Gastrointestinal: no abdominal pain, no nausea, no vomiting and no diarrhea/loose stools Physical Exam Constitutional: well nourished and + ill appearing; no acute distress and no altered mental status Respiratory: normal respiratory effort Auscultation: + wheezes (mild expiratory wheezes) Cardiovascular: Rate/Rhythm: regular rate and regular rhythm Heart Sounds: + murmur (grade 5/6 systolic crescendo-decrescendo murmur) Results & Data Results & Data ([facility]) Vital Signs (Past 12 Hours) Vital Signs Temp Pulse Pulse Pulse Resp BP Pulse Ox 06/17/20 04:00 36.8 C 79 18 167/60 H 95 06/17/20 00:00 93 H 06/16/20 23:53 37.1 C 83 18 125/53 L 94 06/16/20 20:04 36.8 C 81 18 171/81 H 98 06/16/20 19:34 83 18 95 Resident Activity Tracking Resident Involvement: Resident Care Provided Care Provided: Adult Hospital Medicine
[2020-06-17] MEDS: CLOPIDOGREL BISULFATE 75 MG TAB PO SCH (08:10)
[2020-06-17] MEDS: NYSTATIN SUSP 500,000 U/5 ML UDC PO SCH ×4 (08:10→20:18)
[2020-06-17] MEDS: MAGNESIUM OXIDE 400 MG TAB PO SCH (08:11)
[2020-06-17] MEDS: lisinopriL 10 MG TAB PO SCH (08:11)
[2020-06-17] MEDS: CYANOCOBALAMIN 500 MCG TABLET (VITAMIN B-12) PO SCH (08:11)
[2020-06-17] MEDS: AMLODIPINE BESYLATE 5 MG TAB PO SCH (08:11)
[2020-06-17] MEDS: MULTIVITAMIN TAB PO SCH (08:11)
[2020-06-17] MEDS: ATORVASTATIN 40 MG TAB PO SCH (08:11)
[2020-06-17] MEDS: PANTOprazole 40 MG TAB PO SCH (08:11)
[2020-06-17] MEDS: CITALOPRAM 40 MG TAB PO SCH (08:11)
[2020-06-17] MEDS: CHOLECALCIFEROL 1,000 UNITS 25 MCG TAB PO SCH (08:11)
[2020-06-17] MEDS: NYSTATIN POWDER 15GM BTL EXT SCH ×2 (08:12→20:21)
[2020-06-17] MEDS: OXYBUTYNIN CHLORIDE 5 MG TAB PO SCH ×2 (08:12→20:20)
[2020-06-17] MEDS: HEPARIN SOD 5,000 UNIT/0.5 ML VIAL SC SCH ×2 (08:12→20:21)
[2020-06-17] MEDS: carvediloL 6.25 MG TAB PO SCH ×2 (08:12→20:18)
[2020-06-17] MEDS: UMECLIDINIUM BROMIDE 62.5MCG/BLISTER 7 PUFFS/INHALER INH SCH (08:12)
[2020-06-17] MEDS: DOCUSATE SODIUM/SENNA 50/8.6MG TAB PO SCH ×2 (08:13→20:19)
--- NOTE | 2020-06-17 08:17 | Surgery Progress Note ---
Date of Service June 17, 2020 Assessment & Plan (1) S/P colectomy: The skin is very thin with the bowel directly superficially underneath it. I am concerned that the one suture might actually be through the wall of the bowel. If we remove this it could create an enterocutaneous fistula or even bowel perforation. Her symptoms are relatively mild. After discussing all this with her we have both decided to leave the suture in place as the risk-benefit does not warrant removing it. We will sign off. Please call if we can be of help. Admission and Anticipated Discharge Date Admission Date: June 12, 2020 Subjective Patient seen. She has had multiple abdominal surgeries with relocation of her stoma several times. Along her midline incision she has several suture knots that are slightly protruding which are annoying for her. There is one that is scabbed over which drains a yellowish fluid from time to time. Physical Exam Physical Exam: Alert. No acute distress HEENT: PERRLA. EOMI Abdomen: Soft. Large left-sided mid abdominal hernia with bowel protruding. Along her midline incision are several palpable suture knots just beneath the skin. The superiormost has a small scab but no drainage. There is no erythema. Results & Data ([facility]) Vital Signs (Past 12 Hours) Vital Signs Temp Pulse Pulse Pulse Resp BP Pulse Ox 06/17/20 07:55 36.7 C 83 20 185/74 H 95 06/17/20 07:14 84 18 95 06/17/20 04:00 36.8 C 79 18 167/60 H 95 06/17/20 00:00 93 H 06/16/20 23:53 37.1 C 83 18 125/53 L 94 PG Care Time/CCT Total # of Minutes Spent Total Time Spent with Patient: Total time spent is greater than 50% in coordination of care (as documented) at patient's floor/unit and/or counseling patient: Coding Level of Care Code 15738 Subseq Hosp Care Lvl 2 Diagnoses S/P colectomy Z90.49
[2020-06-17 10:40] LABS: BUN Creatinine Ratio 28.6 (10-20); Calcium 8.6 mg/dl (8.5-10.1); Creatinine Clr Calc Pharmacy 23.7 ml/min; Est GFR (African American) 50.2; Est GFR (Non-African American) 43.4; Potassium 4.3 mmol/L (3.5-5.1)
[2020-06-17] MEDS ORDERED: MIDAZOLAM HCL 1 MG/ML 2ML VIAL ONE (10:57)
[2020-06-17] MEDS ORDERED: fentaNYL citrate 100 MCG/2 ML VIAL ONE (10:57)
[2020-06-17] MEDS ORDERED: NITROGLYCERIN/D5W 100MCG/ML 20ML SYR ONE (10:57)
[2020-06-17] MEDS ORDERED: NiCARDipine HCL INJ 2.5 MG/ML 10 ML AMP ONE (10:57)
[2020-06-17] MEDS ORDERED: HEPARIN (PORCINE) 1000 UNIT/ML 10 ML (CATH LAB USE ONLY) ONE (10:57)
[2020-06-17 14:00] LABS: iSTAT Arterial Blood Gas HCO3 28 meg/L (19-24); iSTAT Arterial Blood Gas pCO2 46 mmHg (35-46); iSTAT Arterial Blood Gas pH 7.39 (7.35-7.45); iSTAT Arterial Blood Gas pO2 < 32 mmHg (80-95); iSTAT Carbon Dioxide 30 mmol/L (24-31); iSTAT Hematocrit 33 % (37-47); iSTAT Hemoglobin 11.2 g/dl (12.0-16.0); iSTAT Potassium 4.2 mmol/L (3.3-5.0); iSTAT Sodium 133 mmol/L (135-144)
--- NOTE | 2020-06-17 14:22 | Post Anesthesia Assessment ---
Date of Service June 17, 2020 Post Sedation Assessment Vital Signs Temp Pulse Pulse Pulse Resp BP Pulse Ox 06/17/20 14:15 75 18 91 06/17/20 11:33 80 162/62 H 06/17/20 07:55 98.1 F 83 20 185/74 H 95 06/17/20 07:14 84 18 95 06/17/20 04:00 98.2 F 79 18 167/60 H 95 06/17/20 00:00 93 H 06/16/20 23:53 98.8 F 83 18 125/53 L 94 06/16/20 20:04 98.2 F 81 18 171/81 H 98 06/16/20 19:34 83 18 95 06/16/20 17:00 86 06/16/20 16:12 97.2 F L 82 18 152/71 H 94 06/16/20 14:32 94 Recovery Score Activity: Moves 4 extremities Respiration: Deep Breath/Cough Circulation: +/-20% PreAnes Value Consciousness: Fully Awake Oxygen Saturation: > 92% On Room Air Post Anesthesia Score: 10 Discharge Sedation Level of Care: Fast Track Phase II Post Sedation Plan On clinical assessment, the patient appears to have tolerated the sedation without complications. Patient is recovering as anticipated. Patient will continue to be monitored by nursing and may be discharged when sedation discharge criteria are met per below protocol. Upon Completions of procedure up to 15 minutes continue every 5 minute vital signs and the P.A.R. score; then discharge to a Phase I or Fast Track to Phase II per the following guidelines: * Discharge Patient to appropriate Phase II area if PAR is 8 or greater or retur n to pre- procedure baseline. The post - procedure orders will be as directed. * If PAR score is less than 8 or not return to pre-procedure baseline then patient will follow Phase I monitoring till PAR is reached for Phase II. The Phase I may be done in procedure room or may call to secure a Phase I area. * If naloxone or flumazenil are used for reversal, hold in Phase I for continued monitoring from when last reversal dose was given for a minimum of 60 minutes or longer pending the nurse and/or physician discretion of patient condition before discharge to Phase II. Please call the Sedation Physician to re-evaluate and complete post-note for discharge to Phase II area. Do NOT discharge from procedure sedation or Phase 1 until post- sedation evaluation note is complete by procedure /sedation MD Sedation Discharge Instructions to be given to the patient at discharge to home.
--- NOTE | 2020-06-17 14:25 | Cardiology Progress Note ---
Date of Service June 17, 2020 Assessment & Plan (1) Severe aortic stenosis: Given absence of occlusive coronary artery disease, feel that further evaluation for TAVR is appropriate. Dr. Joel Parrish will be helping facilitate arrangements with [facility]. If patient's clinical status allows for discharge, likely she could follow-up with [facility] cardiology as an outpatient. (2) Non-occlusive coronary artery disease: See cardiac catheterization results by Dr. Parrish. (3) COPD exacerbation: Pulmonary status is stable. Right heart pressures were normal. (4) Shortness of breath: Multifactorial. No occlusive CAD. Severe aortic stenosis likely plays a significant role in her dyspnea on exertion. (5) Artificial cardiac pacemaker: As per Dr. Gaxiola, appears to be functioning appropriately. (6) Hypertension: BP variable but tending toward hypertensive. Despite this, would avoid aggressively treating her hypertension in the context of severe aortic stenosis. Admission and Anticipated Discharge Date Admission Date: June 12, 2020 Subjective Uneventful night. Slept poorly due to distractions but has no complaints of chest pain, dyspnea, or palpitations. Monitor showed sinus rhythm with 1 brief run of atrial tachycardia (15 beats). Physical Exam Physical Exam: No distress. Skin: no ecchymoses or generalized lesions. HEENT: unremarkable. Neck: no JVD, carotids with bilateral transmitted murmur. Lungs: Moderately decreased breath sounds with diffuse rhonchi and occasional expiratory wheeze. No accessory muscle use, intercostal retraction, or abdominal paradox. Cardiac: regular rhythm with 3/6 crescendo decrescendo systolic ejection murmur right upper sternal border radiating to the carotids, left sternal border, and apex. Absent aortic closure sound. No diastolic murmur or gallop. Abdomen benign. Extremities: no edema, pulses intact. Neurologic: normal affect and conversation, grossly nonfocal. Results & Data ([facility]) Vital Signs (Past 12 Hours) Vital Signs Temp Pulse Pulse Resp BP Pulse Ox 06/17/20 14:15 75 18 91 06/17/20 11:33 80 162/62 H 06/17/20 07:55 98.1 F 83 20 185/74 H 95 06/17/20 07:14 84 18 95 06/17/20 04:00 98.2 F 79 18 167/60 H 95 Diagnostic Findings Monitor results as noted in HPI. PG Care Time/CCT Total # of Minutes Spent Total Time Spent with Patient: Total time spent is greater than 50% in coordination of care (as documented) at patient's floor/unit and/or counseling patient: Coding Level of Care Code 86636 Subseq Hosp Care Lvl 3 Diagnoses Severe aortic stenosis I35.0 Non-occlusive coronary artery disease I25.10 COPD exacerbation J44.1 Shortness of breath R06.02 Artificial cardiac pacemaker Z95.0 Hypertension I10
--- NOTE | 2020-06-17 14:29 | Cardiac Catheterization ---
[facility] [place] Data: Garbage Stoker Cardiac Status Clinical evaluation leading to the procedure CAD Presenation: Sx unlikely to be ischemic Anginal Classification: CCS III Heart Failure: No Cardiogenic Shock within 24 Hours: No Cardiac Arrest within 24 Hours: No Imaging Studies Past 6 Months: Yes Stress Studies Past 6 Months: No Diagnostic Physicians Name: Keyur Parrish MD Status: Elective Closure Device Percutaneous Entry Location: Radial Closure Device: Radial Band Recommendations: Valve Replacement Intraprocedure Events Significant Disection: No Perforation: No Cardiac Cath Procedure Full Procedure Date June 17, 2020 Pre-Procedure Diagnosis Pre-Procedure Diagnosis: Valvular Disease AUC Score AUC Score: 8 Post-Procedure Diagnosis Post-Procedure Diagnosis: Severe CAD and Successful PCI Procedure(s) Performed Procedure(s) Performed: Coronary Angiography, Left Heart Cath, Right Heart Cath and Ultrasound Guided Vascular Access Healthcare Social Worker Keyur Parrish MD Mill Representative(s) Elisabeth Estimated Blood Loss Estimated Blood Loss: 15 Medication(s) Medication(s): Fentanyl, Heparin, Lidocaine 1%, Nicardipine, Nitroglycerin and Versed Summary of Findings Indication: Severe aortic stenosis Access: 6 Fr slender right radial artery, 6 Fr slender right internal jugular vein under ultrasound guidance Catheters: Lorenzo Reynolds, 6 Fr [place] Findings: LM -large caliber, no significant disease LAD -medium caliber vessel, diffuse 20 to 30% proximal to mid disease, 40 to 50% focal mid segment stenosis, distal vessel tortuous and wraps around apex. Circumflex -large caliber vessel, codominant, mid segment luminal irregularities large OM 2 without significant disease RCA -small caliber vessel, codominant, mid segment luminal irregularities. RA 2 RV 24/2 PA 19/5 (10) PAWP 8 LVEDP 4 PaSat 59% AoSat 93% [place]oval CO/CI 2.4/1.8 Thermo CO/CI 2.6/1.9 Aortic valve mean gradient 23.4 mmHg Aortic valve area 0.47 cm2 Arterial Closure: TR Band Summary: 1. Mild to moderate non-obstructive coronary artery disease - 40-50% mid LAD stenosis 2. Severe aortic stenosis (RAJINDER 0.47 cm2). 3. Low cardiac output 4. Normal left and right sided filling pressures. 5. Normal pulmonary artery pressures. Recommendations: Evaluation at tertiary center for TAVR. Continued ASCVD risk factor modfication. Hemodynamics Rest Ao:: 150/51/93 Final Ao: 177/68/113 LV: 172/2 Recommendations Recommendations: Valve Replacement Specimens Specimens: None Radiation Exposure (mGy) 1724 Contrast (mls) 30 Fluids (cc crystalloids) Fluids (cc crystalloids): 75 Drains Drains: none Anesthesia moderate Procedural Complication(s) None Disposition PCU I attest to the content of the Intraoperative Record and any orders documented therein. Any exceptions are noted below. [facility] [place] Codes Cardiac Catheterization Procedure 1: Cardiovascular Cath Procedures: 70282 Coronaries & LHC (+/-LV) & RHC Moderate Sedation Procedure 1: Sedation/Anesthesia: 64024 Mod Sedation by the same physician;Init15 Min Child Age 5 & Up Procedure 2: Sedation/Anesthesia: 58951 Mod Sedation by the same physician; Ea [id number] Minutes PG Care Time/CCT Total # of Minutes Spent Total Time Spent with Patient: Total time spent is greater than 50% in coordination of care (as documented) at patient's floor/unit and/or counseling patient:
[2020-06-17] MEDS ORDERED: SODIUM CHLORIDE 0.9% 1000ML 1,000 ML IV SCH (15:15)
[2020-06-18] MEDS: IPRATROPIUM BROMIDE NEB SOLN 0.02% 2.5 ML VIAL INH SCH ×4 (01:53→19:34)
[2020-06-18] MEDS: LEVALBUTEROL HCL 0.63 MG/3 ML NEB NEB SCH ×4 (01:54→19:34)
[2020-06-18] MEDS: methylPREDNISolone 20 MG in SYRINGE 0 ML IV SCH ×3 (04:55→21:59)
[2020-06-18] MEDS: LEVOTHYROXINE SODIUM 100 MCG TABLET PO SCH (06:00)
[2020-06-18 07:09] LABS: iSTAT Arterial Blood Gas HCO3 27 meg/L (19-24); iSTAT Arterial Blood Gas pCO2 41 mmHg (35-46); iSTAT Arterial Blood Gas pH 7.43 (7.35-7.45); iSTAT Arterial Blood Gas pO2 66 mmHg (80-95); iSTAT Carbon Dioxide 28 mmol/L (24-31); iSTAT Hematocrit 34 % (37-47); iSTAT Hemoglobin 11.6 g/dl (12.0-16.0); iSTAT Potassium 4.3 mmol/L (3.3-5.0); iSTAT Sodium 131 mmol/L (135-144)
[2020-06-18 07:19] LABS: Hematocrit (blood only) 32.9 % (37-47); Immature Granulocytes # (auto) 0.03 K/uL (0.00-0.02); Immature Granulocytes % (auto) 0.4 %; Lymphocytes # (auto) 1.11 K/uL (1.2-3.4); Lymphocytes % (auto) 14.6 %; Mean Corpuscular Hgb Conc 33.4 g/dL (32-36); Mean Corpuscular Volume 80.8 fL (80-100); Mean Platelet Volume 10.1 fL (7.4-10.4); Monocytes # (auto) 0.54 K/uL (0.11-0.59); Monocytes % (auto) 7.1 %; Neutrophils # (auto) 5.94 K/uL (1.4-6.5); Neutrophils % (auto) 77.9 %; Platelet Count 333 K/uL (130-400); RDW Coefficient of Variation 15.7 % (11.5-14.5); RDW Standard Deviation 46.3 fL (36.4-46.3); Red Blood Count 4.07 M/uL (4.2-5.4); White Blood Count 7.62 K/uL (4.8-10.8)
[2020-06-18 07:44] LABS: BUN Creatinine Ratio 29.6 (10-20); Calcium 8.5 mg/dl (8.5-10.1); Creatinine Clr Calc Pharmacy 21.1 ml/min; Est GFR (African American) 43.7; Est GFR (Non-African American) 37.7; Potassium 4.4 mmol/L (3.5-5.1)
[2020-06-18] MEDS: UMECLIDINIUM BROMIDE 62.5MCG/BLISTER 7 PUFFS/INHALER INH SCH (07:49)
[2020-06-18] MEDS: NYSTATIN POWDER 15GM BTL EXT SCH ×2 (07:49→22:03)
[2020-06-18] MEDS: carvediloL 6.25 MG TAB PO SCH ×2 (07:50→22:03)
[2020-06-18] MEDS: DOCUSATE SODIUM/SENNA 50/8.6MG TAB PO SCH ×2 (07:50→22:02)
[2020-06-18] MEDS: NYSTATIN SUSP 500,000 U/5 ML UDC PO SCH ×4 (07:50→22:02)
[2020-06-18] MEDS: CHOLECALCIFEROL 1,000 UNITS 25 MCG TAB PO SCH (07:50)
[2020-06-18] MEDS: MULTIVITAMIN TAB PO SCH (07:51)
[2020-06-18] MEDS: CITALOPRAM 40 MG TAB PO SCH (07:51)
[2020-06-18] MEDS: AMLODIPINE BESYLATE 5 MG TAB PO SCH (07:51)
[2020-06-18] MEDS: PANTOprazole 40 MG TAB PO SCH (07:51)
[2020-06-18] MEDS: CYANOCOBALAMIN 500 MCG TABLET (VITAMIN B-12) PO SCH (07:51)
[2020-06-18] MEDS: ATORVASTATIN 40 MG TAB PO SCH (07:51)
[2020-06-18] MEDS: CLOPIDOGREL BISULFATE 75 MG TAB PO SCH (07:52)
[2020-06-18] MEDS: lisinopriL 10 MG TAB PO SCH (07:52)
[2020-06-18] MEDS: MAGNESIUM OXIDE 400 MG TAB PO SCH (07:52)
[2020-06-18] MEDS: OXYBUTYNIN CHLORIDE 5 MG TAB PO SCH ×2 (07:52→22:02)
[2020-06-18] MEDS: HEPARIN SOD 5,000 UNIT/0.5 ML VIAL SC SCH ×2 (07:53→22:03)
--- NOTE | 2020-06-18 11:35 | Cardiology Progress Note ---
Date of Service June 18, 2020 Assessment & Plan (1) Severe aortic stenosis: Given absence of occlusive coronary artery disease, further evaluation for TAVR is appropriate and will take place at [facility] as an outpatient. (2) Non-occlusive coronary artery disease: See cardiac catheterization results by Dr. Parrish. (3) COPD exacerbation: Pulmonary status is stable. Right heart pressures were normal. (4) Shortness of breath: Multifactorial. No occlusive CAD. Severe aortic stenosis likely plays a significant role in her dyspnea on exertion. (5) Artificial cardiac pacemaker: As per Dr. Gaxiola, appears to be functioning appropriately. (6) Hypertension: BP normotensive today. As previously noted, would avoid aggressively treating her hypertension in the context of severe aortic stenosis. Admission and Anticipated Discharge Date Admission Date: June 12, 2020 Subjective Patient slept well but feels somewhat restless this morning. Still notes dyspnea with minor exertion and feels weak. No chest pain, palpitations, lightheadedness, presyncope, or syncope. Apparently, she will be going to a rehabilitation facility to gain strength before proceeding to further evaluation for transcatheter aortic valve replacement (TAVR). Physical Exam Physical Exam: No distress. Skin: no ecchymoses or generalized lesions. HEENT: unremarkable. Neck: no JVD, carotids with bilateral transmitted murmur. Lungs: Moderately decreased breath sounds with diffuse rhonchi and occasional expiratory wheeze. No accessory muscle use, intercostal retraction, or abdominal paradox. Cardiac: regular rhythm with 3/6 crescendo decrescendo systolic ejection murmur right upper sternal border radiating to the carotids, left sternal border, and apex. Absent aortic closure sound. No diastolic murmur or gallop. Abdomen benign. Extremities: no edema, pulses intact. Neurologic: normal affect and conversation, grossly nonfocal. Results & Data ([facility]) Vital Signs (Past 12 Hours) Vital Signs Temp Pulse Pulse Resp BP Pulse Ox 06/18/20 07:16 97.7 F 76 18 140/78 95 06/18/20 07:15 79 18 97 06/17/20 23:50 97.5 F L 81 20 131/67 95 Laboratory Results Creatinine 1.29. Hemoglobin 11.0. Telemetry monitoring benign. PG Care Time/CCT Total # of Minutes Spent Total Time Spent with Patient: Total time spent is greater than 50% in coordination of care (as documented) at patient's floor/unit and/or counseling patient: Coding Level of Care Code 82630 Subseq Hosp Care Lvl 2 Diagnoses Severe aortic stenosis I35.0 Non-occlusive coronary artery disease I25.10 COPD exacerbation J44.1 Shortness of breath R06.02 Artificial cardiac pacemaker Z95.0 Hypertension I10
--- NOTE | 2020-06-18 11:42 | XRay Report ---
XR chest 2V PA/lateral CLINICAL HISTORY: Shortness of breath COMPARISON STUDY: Chest radiograph June 12, 2020. Chest CT June 14, 2020. FINDINGS: Incidental note is made of a dual-lead left subclavian pacemaker, vertebral augmentation, I VC filter and partially visualized lumbar spine fusion hardware. Cardiac size is normal. Mediastinal contours are unremarkable. There is no pneumothorax or pleural effusion. No consolidation is identifi ed. Note is made of multiple old left rib fractures and old thoracic spine fractures. IMPRESSION: No acute cardiopulmonary findings. No change in appearance of the chest. ACT 112: Negative or not required by law. Electronically signed by: Sancho Carl M.D. 06/18/2020 11:41 AM
--- NOTE | 2020-06-18 14:57 | Hospitalist Progress Note ---
Date of Service June 18, 2020 Assessment & Plan (1) SOB (shortness of breath): Sage Hoover is an 85 year old female with COPD, aortic stenosis, paroxysmal atrial fibrillation, pacemaker placement, carotid artery stenosis, history of NH, history of stroke, Crohn's s/p colectomy, hypothyroidism, depression, anxiety, and Meniere's disease who presents with an 8-10 day history of weakness, dizziness, fatigue, and shortness of breath. 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 Severe likely to play significant role - Will need 2 step on discharge for Oxygen needs. Acute diastolic CHF sec to severe - Discussed with Dr. Chaidez: Lasix 60mg IV once for pulmonary edema leading to worsened MACARIO - check I and Os - monitor renal function Progressive aortic stenosis - JACK: severe calcific aortic valve stenosis - Cardiac catheterization: Mild to moderate non-obstructive CAD- 40-50% mid LAD stenosis - Cardiology recommends further evaluation for TAVR - Will be arranged for outpatient follow-up with [facility] cardiology by [facility] cardiology HTN - Readings higher--avoid aggressive treatment in context of severe - continue carvedilol 18.75mg PO bid - increased from 12.5mgs - continue lisinopril 10mg PO qd - increased from 5mgs. CAD - c/w nitroglycerin 0.4mg sublingual PRN - c/w clopidogrel 75mg PO qAM - c/w atorvastatin 40mg PO qAM - B han, ACEi Paroxysmal atrial fibrillation - c/w carvedilol. - per cardiology note on 09/25/19: afib is limited to occasional short episodes--would not consider anticoagulation Concern of COPD exacerbation - Elevation of RV systolic pressure pointing to pulmonary hypertension, likely secondary to COPD - d/aden methylprednisolone IV 20mg q8hr due to failure to improve and very low likelihood that this is a COPD exacerbation - c/w ipratropium bromide inhaler 0.5mg q6hr - c/w levalbuterol nebulizer 0.63mg q6hr - c/w umeclidinium inhaler 1 puff qd CKD stage 3-4 - follow renal function Complaint of dry mouth - Treat empirically with nystatin for oral thrush Pain in suture site, abdomen - Suture has been there for four years after surgery - consulted gen surgery for removal Hypothyroidism - levothyroxine 100mcg PO qd GERD - pantoprazole 40mg PO qAM Depression, anxiety - c/w citalopram 40mg PO qAM - trazodone 50mg PO qhs Meniere's disease - c/w meclizine 12.5mg PO q8h Stress/urge incontinence - c/w oxybutynin 5mg PO bid FEN - diet. No IVF Code status - DNR DVT prophylaxis - Heparin 5000 units SC q12H Dispo - Med/Surg - PT/OT recommend rehab placement after d/c--patient agreed today (2) Dizziness: (3) Artificial cardiac pacemaker: (4) Urge and stress incontinence: (5) History of stroke: (6) History of myocardial infarction: (7) Paroxysmal atrial fibrillation: (8) Esophageal reflux: (9) Colitis: (10) Aortic stenosis: (11) S/P colectomy: (12) Hypothyroidism: (13) Atrial fibrillation: (14) Meniere's disease: (15) Acute UTI: (16) CKD (chronic kidney disease) stage 4, GFR 15-29 ml/min: Admission and Anticipated Discharge Date Admission Date: June 12, 2020 Supervising Physician Co-Signing Physician Notes Resident Physician Supervision Note: I independently interviewed and examined the patient and verified the sarabia history and physical, reviewed labs and image studies, discussed the case with the resident Dr. Ahumada and agree with the findings and care plan. Subjective Patient feeling very short of breath today in general, particularly when exerting herself to sit up for meals/meds. She was open today to rehab placement after discharge, understands it's a good idea as she's unlikely to be able to properly care for herself at home under her current condition. She denies, chests pain, palpitations,fever, chills, nausea, vomiting, diarrhea, abdominal pain. Review of Systems Constitutional: + fatigue; no fever, no chills and no sweats Respiratory: + dyspnea on exertion Cardiovascular: + dyspnea; no chest pain, no palpitations and no edema Gastrointestinal: no abdominal pain, no nausea, no vomiting and no diarrhea/loose stools Physical Exam Constitutional: well nourished and + ill appearing; no acute distress and no altered mental status Respiratory: + labored breathing Auscultation: + wheezes (expiratory wheezes) expiratory wheezes Cardiovascular: Rate/Rhythm: regular rate and regular rhythm Heart Sounds: + murmur (grade 5/6 systolic crescendo-decrescendo murmur) Results & Data Results & Data ([facility]) Vital Signs (Past 12 Hours) Vital Signs Temp Pulse Pulse Resp BP Pulse Ox 06/18/20 13:21 74 18 98 06/18/20 11:47 36.8 C 83 18 163/85 H 95 06/18/20 07:16 36.5 C 76 18 140/78 95 06/18/20 07:15 79 18 97 Resident Activity Tracking Resident Involvement: Resident Care Provided Care Provided: Adult Hospital Medicine
[2020-06-18] MEDS ORDERED: FUROSEMIDE 60 MG in SYRINGE 0 ML IV ONE (15:15)
[2020-06-18] MEDS: TRAZODONE HCL 50 MG TAB PO PRN (22:10)
[2020-06-19] MEDS: IPRATROPIUM BROMIDE NEB SOLN 0.02% 2.5 ML VIAL INH SCH ×4 (00:05→18:56)
[2020-06-19] MEDS: LEVALBUTEROL HCL 0.63 MG/3 ML NEB NEB SCH ×4 (00:06→18:56)
[2020-06-19] MEDS ORDERED: COUGH DROP (SUGAR FREE) LOZ 24 LOZ/1 BOX BUCCAL PRN (00:35)
[2020-06-19] MEDS ORDERED: COUGH DROP (SUGAR FREE) LOZ 24 LOZ/1 BOX BUCCAL ONE (00:43)
[2020-06-19] MEDS: methylPREDNISolone 20 MG in SYRINGE 0 ML IV SCH ×3 (03:48→20:08)
[2020-06-19] MEDS: LEVOTHYROXINE SODIUM 100 MCG TABLET PO SCH (05:58)
[2020-06-19 08:49] LABS: BUN Creatinine Ratio 29.9 (10-20); Calcium 8.4 mg/dl (8.5-10.1); Creatinine Clr Calc Pharmacy 19.2 ml/min; Est GFR (African American) 38.9; Est GFR (Non-African American) 33.6; Potassium 3.9 mmol/L (3.5-5.1)
[2020-06-19] MEDS: lisinopriL 10 MG TAB PO SCH (08:54)
[2020-06-19] MEDS: CITALOPRAM 40 MG TAB PO SCH (08:54)
[2020-06-19] MEDS: CYANOCOBALAMIN 500 MCG TABLET (VITAMIN B-12) PO SCH (08:54)
[2020-06-19] MEDS: MAGNESIUM OXIDE 400 MG TAB PO SCH (08:54)
[2020-06-19] MEDS: ATORVASTATIN 40 MG TAB PO SCH (08:54)
[2020-06-19] MEDS: CHOLECALCIFEROL 1,000 UNITS 25 MCG TAB PO SCH (08:54)
[2020-06-19] MEDS: MULTIVITAMIN TAB PO SCH (08:55)
[2020-06-19] MEDS: AMLODIPINE BESYLATE 5 MG TAB PO SCH (08:55)
[2020-06-19] MEDS: CLOPIDOGREL BISULFATE 75 MG TAB PO SCH (08:55)
[2020-06-19] MEDS: carvediloL 6.25 MG TAB PO SCH ×2 (08:56→20:10)
[2020-06-19] MEDS: PANTOprazole 40 MG TAB PO SCH (08:56)
[2020-06-19] MEDS: OXYBUTYNIN CHLORIDE 5 MG TAB PO SCH ×2 (08:56→20:09)
[2020-06-19] MEDS: NYSTATIN POWDER 15GM BTL EXT SCH ×2 (08:57→20:09)
[2020-06-19] MEDS: DOCUSATE SODIUM/SENNA 50/8.6MG TAB PO SCH ×2 (08:57→20:26)
[2020-06-19] MEDS: NYSTATIN SUSP 500,000 U/5 ML UDC PO SCH ×4 (08:57→20:09)
[2020-06-19] MEDS: HEPARIN SOD 5,000 UNIT/0.5 ML VIAL SC SCH ×2 (09:02→20:10)
[2020-06-19] MEDS: UMECLIDINIUM BROMIDE 62.5MCG/BLISTER 7 PUFFS/INHALER INH SCH (09:02)
--- NOTE | 2020-06-19 11:12 | Cardiology Progress Note ---
Date of Service June 19, 2020 Assessment & Plan (1) Diastolic CHF: Only minimal volume overload apparent yesterday, however given her underlying pulmonary disease even mild hypervolemia could well be causing her to become dyspneic. Suspect volume loading necessary to prevent renal insuffi ciency at the time of cardiac catheterization contributed to transient volume overload. Fortunately, after diuresis she feels much better. Could discharge on PRN furosemide, having her take it only if she has abrupt weight gain of 2 to 3 pounds or more and becomes dyspneic. Would use a dose of 60 mg, since she has renal insufficiency and did respond to this dose. (2) Severe aortic stenosis: Given absence of occlusive coronary artery disease, further evaluation for TAVR is appropriate and will take place at [facility] as an outpatient. (3) Non-occlusive coronary artery disease: See cardiac catheterization results by Dr. Parrish. (4) COPD exacerbation: Pulmonary status is stable. Right heart pressures were normal. (5) Artificial cardiac pacemaker: As per Dr. Gaxiola, appears to be functioning appropriately. (6) Hypertension: Mildly hypertensive, but would avoid aggressively treating her hypertension in the context of severe aortic stenosis. Admission and Anticipated Discharge Date Admission Date: June 12, 2020 Subjective Patient had noted increasing dyspnea throughout the day yesterday, she received furosemide 60 mg with good diuresis (I/O -1250) and resolution of her dyspneic symptoms. She feels much better today, slept well. Currently, she notes no dyspnea at rest and she denies any chest pain, subjective palpitations, or lightheadedness. She still feels a sense of generalized weakness and is scheduled to go to a rehabilitation facility. Physical Exam Physical Exam: No distress. Skin: no ecchymoses or generalized lesions. HEENT: unremarkable. Neck: Jugular venous pulse at or just below the clavicle at 90 degrees, carotids with bilateral transmitted murmur. Lungs: Moderately decreased breath sounds with diffuse rhonchi and occasional right-sided expiratory wheeze. No accessory muscle use, intercostal retraction, or abdominal paradox. Cardiac: regular rhythm with 3/6 crescendo decrescendo systolic ejection murmur right upper sternal border radiating to the carotids, left sternal border, and apex. Absent aortic closure sound. No diastolic murmur or gallop. Abdomen benign. Extremities: no edema, pulses intact. Neurologic: normal affect and conversation, grossly nonfocal. Results & Data ([facility]) Diagnostic Findings Monitor showed sinus rhythm without significant pauses or dysrhythmia. BUN/creatinine 43/1.42. Potassium 3.9. PG Care Time/CCT Total # of Minutes Spent Total Time Spent with Patient: Total time spent is greater than 50% in coordination of care (as documented) at patient's floor/unit and/or counseling patient: Coding Level of Care Code 52379 Subseq Hosp Care Lvl 3 Diagnoses Diastolic CHF I50.30 Severe aortic stenosis I35.0 Non-occlusive coronary artery disease I25.10 COPD exacerbation J44.1 Artificial cardiac pacemaker Z95.0 Hypertension I10
--- NOTE | 2020-06-19 16:58 | Hospitalist Progress Note ---
Date of Service June 19, 2020 Assessment & Plan (1) SOB (shortness of breath): Sage Hoover is an 85 year old female with COPD, aortic stenosis, paroxysmal atrial fibrillation, pacemaker placement, carotid artery stenosis, history of IA, history of stroke, Crohn's s/p colectomy, hypothyroidism, depression, anxiety, and Meniere's disease who presents with an 8-10 day history of weakness, dizziness, fatigue, and shortness of breath. 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 Severe likely to play significant role Acute diastolic CHF sec to severe - Received Lasix 60mg IV with negative 1250 fluid balance. - continue check I and Os - monitor renal function--Creatinine 1.42 today, increased from 1.29 yesterday; likely transient increase due to lasix dose - monitor clinically - F/U BMP tomorrow Progressive aortic stenosis - JACK: severe calcific aortic valve stenosis - Cardiac catheterization: Mild to moderate non-obstructive CAD- 40-50% mid LAD stenosis - Cardiology recommends further evaluation for TAVR - Will be arranged for outpatient follow-up with [facility] cardiology by [facility] cardiology HTN - Well controlled today--avoid aggressive treatment in context of severe - continue carvedilol 18.75mg PO bid - increased from 12.5mgs - continue lisinopril 10mg PO qd - increased from 5mgs CAD - c/w nitroglycerin 0.4mg sublingual PRN - c/w clopidogrel 75mg PO qAM - c/w atorvastatin 40mg PO qAM - B han, ACEi Paroxysmal atrial fibrillation - c/w carvedilol. - per cardiology note on 09/25/19: afib is limited to occasional short episodes--would not consider anticoagulation Concern of COPD exacerbation - d/aden methylprednisolone IV 20mg q8hr due to failure to improve and very low likelihood that this is a COPD exacerbation - c/w ipratropium bromide inhaler 0.5mg q6hr, levalbuterol nebulizer 0.63mg q6hr, umeclidinium inhaler 1 puff qd - Elevation of RV systolic pressure pointing to pulmonary hypertension, likely secondary to COPD CKD stage 3-4 - follow renal function--Creatinine 1.42 today; likely transient increase due to lasix dose - monitor clinically - F/U BMP tomorrow Complaint of dry mouth - Treat empirically with nystatin for oral thrush Pain in suture site, abdomen - Suture has been there for four years after surgery - consulted gen surgery for removal - per surgery: Bowel directly superficially underneath. Concern suture might be through wall of bowel. If removed, could create an enterocutaneous fistula or bowel perforation. Hypothyroidism - levothyroxine 100mcg PO qd GERD - pantoprazole 40mg PO qAM Depression, anxiety - c/w citalopram 40mg PO qAM - trazodone 50mg PO qhs Meniere's disease - c/w meclizine 12.5mg PO q8h Stress/urge incontinence - c/w oxybutynin 5mg PO bid FEN - diet. No IVF Code status - DNR DVT prophylaxis - Heparin 5000 units SC q12H Dispo - Med/Surg - PT/OT recommend rehab placement after d/c--pending insurance authorization (2) Dizziness: (3) Artificial cardiac pacemaker: (4) Urge and stress incontinence: (5) History of stroke: (6) History of myocardial infarction: (7) Paroxysmal atrial fibrillation: (8) Esophageal reflux: (9) Colitis: (10) Aortic stenosis: (11) S/P colectomy: (12) Hypothyroidism: (13) Atrial fibrillation: (14) Meniere's disease: (15) Acute UTI: (16) CKD (chronic kidney disease) stage 4, GFR 15-29 ml/min: Admission and Anticipated Discharge Date Admission Date: June 12, 2020 Supervising Physician Co-Signing Physician Notes Resident Physician Supervision Note: I independently interviewed and examined the patient and verified the sarabia history and physical, reviewed labs and image studies, discussed the case with the resident Dr. Ahumada and agree with the findings and care plan. Subjective The patient is doing much better today compared to yesterday. Reports signi ficant decrease in her SOB, still remains but much more tolerable. Patient asked about communication with daughter of plans for the patient's TAVR procedure in [place]. I let her know that cardiology had been informed of daughter's request for a call with update. No other complaints today. Denies CP, palpitations, fever, chills, nausea, vomiting, abdominal pain, dysuria. Review of Systems Constitutional: + fatigue; no fever, no chills and no sweats Respiratory: + dyspnea on exertion Cardiovascular: + dyspnea; no chest pain, no palpitations and no edema Gastrointestinal: no abdominal pain, no nausea, no vomiting and no diarrhea/loose stools Genitourinary: + urinary frequency (yesterda PM; likely due to lasix); no dysuria and no difficulty urinating Physical Exam Constitutional: well nourished and + ill appearing; no acute distress and no altered mental status Respiratory: normal respiratory effort, lungs clear to auscultation no labored breathing Auscultation: no crackles, no rales, no rhonchi and no wheezes Cardiovascular: Rate/Rhythm: regular rate and regular rhythm Heart Sounds: + murmur (grade 5/6 systolic crescendo-decrescendo murmur) Results & Data Results & Data ([facility]) Vital Signs (Past 12 Hours) Vital Signs Temp Pulse Pulse Resp BP Pulse Ox 06/19/20 14:48 36.4 C L 77 16 124/67 93 06/19/20 13:24 79 16 95 06/19/20 07:18 73 14 94 06/19/20 07:14 36.5 C 81 16 159/71 H 95 Resident Activity Tracking Resident Involvement: Resident Care Provided Care Provided: Adult Hospital Medicine
[2020-06-19] MEDS: TRAZODONE HCL 50 MG TAB PO PRN (23:55)
[2020-06-20] MEDS: LEVALBUTEROL HCL 0.63 MG/3 ML NEB NEB SCH ×3 (01:05→13:08)
[2020-06-20] MEDS: IPRATROPIUM BROMIDE NEB SOLN 0.02% 2.5 ML VIAL INH SCH ×3 (01:05→13:08)
[2020-06-20] MEDS: methylPREDNISolone 20 MG in SYRINGE 0 ML IV SCH ×2 (04:44→11:46)
[2020-06-20] MEDS: LEVOTHYROXINE SODIUM 100 MCG TABLET PO SCH (06:02)
[2020-06-20 07:37] LABS: Calcium 8.8 mg/dl (8.5-10.1); Creatinine Clr Calc Pharmacy 16.8 ml/min; Est GFR (African American) 33.2; Est GFR (Non-African American) 28.6; Potassium 3.8 mmol/L (3.5-5.1)
[2020-06-20] MEDS: lisinopriL 10 MG TAB PO SCH (09:08)
[2020-06-20] MEDS: MAGNESIUM OXIDE 400 MG TAB PO SCH (09:08)
[2020-06-20] MEDS: AMLODIPINE BESYLATE 5 MG TAB PO SCH (09:08)
[2020-06-20] MEDS: CHOLECALCIFEROL 1,000 UNITS 25 MCG TAB PO SCH (09:08)
[2020-06-20] MEDS: MULTIVITAMIN TAB PO SCH (09:08)
[2020-06-20] MEDS: PANTOprazole 40 MG TAB PO SCH (09:08)
[2020-06-20] MEDS: carvediloL 6.25 MG TAB PO SCH (09:09)
[2020-06-20] MEDS: ATORVASTATIN 40 MG TAB PO SCH (09:09)
[2020-06-20] MEDS: CLOPIDOGREL BISULFATE 75 MG TAB PO SCH (09:09)
[2020-06-20] MEDS: CYANOCOBALAMIN 500 MCG TABLET (VITAMIN B-12) PO SCH (09:09)
[2020-06-20] MEDS: UMECLIDINIUM BROMIDE 62.5MCG/BLISTER 7 PUFFS/INHALER INH SCH (09:09)
[2020-06-20] MEDS: NYSTATIN SUSP 500,000 U/5 ML UDC PO SCH ×2 (09:09→14:11)
[2020-06-20] MEDS: OXYBUTYNIN CHLORIDE 5 MG TAB PO SCH (09:09)
[2020-06-20] MEDS: HEPARIN SOD 5,000 UNIT/0.5 ML VIAL SC SCH (09:10)
[2020-06-20] MEDS: NYSTATIN POWDER 15GM BTL EXT SCH (09:10)
[2020-06-20] MEDS: CITALOPRAM 40 MG TAB PO SCH (09:10)
[2020-06-20] MEDS: DOCUSATE SODIUM/SENNA 50/8.6MG TAB PO SCH (09:18)
--- NOTE | 2020-06-20 10:45 | Discharge Summary ---
Date of Service June 20, 2020 Admission HPI Per Admitting Provider The patient is an 85-year-old female with a past medical history including cardiac pacemaker, urge and stress incontinence, CVA, CA, paroxysmal atrial fibrillation, carotid artery stenosis, GERD, aortic stenosis, status post colectomy, depression, hypothyroidism, DVT, Mnire's, Crohn's and acute kidney injury. The patient has been seeing by her physician early this week, and was given a trial of prednisone to try to help with her breathing, until she could follow-up with pulmonology. Principal Diagnosis acute diastolic heart failure secondary to worsening aortic stenosis Discharge Exam GENERAL: No acute distress. Ill appearing. Thin. Sitting comfortably at side of bed eating breakfast. Vital signs reviewed as above. A/O x3. EYES: EOMI. Anicteric sclerae. RESPIRATORY: Decreased breath sounds diffusely. No wheezes, rales, or crackles appreciated on exam. CARDIOVASCULAR: Regular rate and rhythm. 5/6 crescendo decrescendo murmur best heard at right sternal border. Unable to hear aortic valve closure sound secondary to severe aortic stenosis. ABDOMEN: Ostomy in place in right abdomen without signs of surrounding erythema or irritation. There is brown stool in the bag without melena or hematochezia. Large left sided ventral hernia that is tender to palpation. EXTREMITIES: No edema. Non-tender. NEUROLOGIC: No focal neurological deficits. CN II-XII grossly intact, but not individually tested. PSYCHIATRIC: Cooperative. Appropriate mood and affect. Discharge Data Allergies Allergy/AdvReac Type Severity Reaction Status Date / Time adhesive tape Allergy Severe SKIN Verified 06/12/20 20:43 IRRITATION cashew nut Allergy Severe Hives Verified 06/12/20 20:43 shellfish derived Allergy Severe Shortness Verified 06/12/20 20:43 of Breath Sulfa (Sulfonamide Allergy Severe Hives Verified 06/12/20 20:43 Antibiotics) Consultations 06/12/20 20:12 ED Decision to Admit Stat 06/12/20 22:52 Consult Cardiology Routine Consult Case Management - Discharge Planning Routine 06/16/20 18:03 Consult General Surgery Routine Procedures Performed Operation Date: 06/15/20 13:00 Actual Procedures p Echo Transesophageal - Jam Chaidez MD s Echo Color Flow - Jam Chaidez MD s Echo Doppler Complete - Jam Chaidez MD Operation Date: 06/17/20 11:00 Actual Procedures p Cath, Right and Left Heart - Cristi Parrish MD s Cineradiography w/Routine Exam - Cristi Parrish MD s Ultrasound Vascular Access - Cristi Parrish MD Ordered Studies 06/12/20 18:13 CT head/brain wo con Stat 06/14/20 19:22 CT chest wo con Routine 06/17/20 12:12 CL Cath Imgs for PACS use only Routine Hospital Course (1) SOB (shortness of breath): Sage Hoover is an 85 year old female with COPD, aortic stenosis, paroxysmal atrial fibrillation, pacemaker placement, carotid artery stenosis, history of CA, history of stroke, Crohn's s/p colectomy, hypothyroidism, depression, anxiety, and Meniere's disease who presents with an 8-10 day history of weakness, dizziness, fatigue, and shortness of breath. This morning, patient states that her symptoms have improved and that this SOB/MACARIO is "much better." She has no acute concerns today. Pt denies worsening dysphagia. She denies chest pain, cough, a change in abdominal pain from baseline, headache, nausea, vomiting, leg pain, or leg swelling. Pt notes that she is ready for d/c to the SNF. 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 - Had recent Pulmonology visit with Dr. Hua as outpatient. - Per cardiology: Multifactorial. Severe likely to play significant role. Acute diastolic CHF sec to severe - Received Lasix 60mg IV with negative fluid balance on discharge. - Pt's creatinine 1.62 ond days of discharge. Progressive aortic stenosis - Underwent JACK: severe calcific aortic valve stenosis - Cardiac catheterization in preperation for TAVR: Mild to moderate non- obstructive CAD- 40-50% mid LAD stenosis - Cardiology recommends further evaluation for TAVR - Will be arranged for outpatient follow-up with [facility] cardiology by [facility] cardiology HTN - BP elevated through the hospital stay. - carvedilol 18.75mg PO bid - increased from 12.5mgs - lisinopril 10mg PO qd - increased from 5mgs - anxiety/fluid overload possibly contributing to elevated BP. - monitor for hypotension due to increased BP med dose. CAD - c/w nitroglycerin 0.4mg sublingual PRN - c/w clopidogrel 75mg PO qAM - c/w atorvastatin 40mg PO qAM - B han, ACEi Paroxysmal atrial fibrillation - c/w carvedilol. - per cardiology note on 09/25/19: afib is limited to occasional short episodes--would not consider anticoagulation Concern of COPD exacerbation - methylprednisolone IV 20mg q8hr tried without any improvement. symptoms likely not due to it. since was on steorids for extended period - quick slow taper on discharge. - c/w ipratropium bromide inhaler 0.5mg q6hr, levalbuterol nebulizer 0.63mg q6hr, umeclidinium inhaler 1 puff qd - Elevation of RV systolic pressure pointing to pulmonary hypertension, likely secondary to COPD ALBERTA on CKD stage 3-4 - Creatinine 1.62 on discharge. - follow as outpatient Complaint of dry mouth - empirically started on nystatin for oral thrush - finish 7-10 days Pain in suture site, abdomen - Suture has been there for four years after surgery - consulted gen surgery for removal - per surgery: Bowel directly superficially underneath. Concern suture might be through wall of bowel. If removed, could create an enterocutaneous fistula or bowel perforation. Hypothyroidism - levothyroxine 100mcg PO qd GERD - pantoprazole 40mg PO qAM Depression, anxiety - c/w citalopram 40mg PO qAM - trazodone 50mg PO qhs Meniere's disease - c/w meclizine 12.5mg PO q8h Stress/urge incontinence - c/w oxybutynin 5mg PO bid FEN - diet. No IVF Code status - DNR DVT prophylaxis - Given Heparin 5000 units SC q12H Dispo -discharged to rehab placement at SNF in [place] per case management secondary to PT/OT recommendation (2) Dizziness: (3) Artificial cardiac pacemaker: (4) Urge and stress incontinence: (5) History of stroke: (6) History of myocardial infarction: (7) Paroxysmal atrial fibrillation: (8) Esophageal reflux: (9) Colitis: (10) Aortic stenosis: (11) S/P colectomy: (12) Hypothyroidism: (13) Atrial fibrillation: (14) Meniere's disease: (15) Acute UTI: (16) CKD (chronic kidney disease) stage 4, GFR 15-29 ml/min: Total Time Total Time Spent Total Time Spent (In Minutes): see attending attestation Discharge Plan Discharge Items Patient Disposition: Transfer Inpatient Rehab Fac Reason For Visit: MACARIO, SEVERE ,HYPOKALEMIA,HYPOMAGNESEMIA Discharge Diagnosis: Dyspnea on exertion Condition on Discharge: Fair Activity: Per Instructions section Non-emergency contact: Primary Care Provider and Medicare Compliance Auditor Call non-emergency contact if: your symptoms worsen Follow-up/Referrals: ProJason MD [Primary Care Provider] - Diet: Heart Healthy Addtl Attending Provider Instructions: You were admitted for complaints of shortness of breath, weakness, and fatigue. This was found to be due to a combination of your preexisting lung disease and a worsening of the stenosis in your heart valve. You were seen by cardiology who determined that you are a good candidate for a replacement of your heart valve to help with your symptoms. You will have outpatient follow-up in [place] to be evaluated for that procedure. Meanwhile, you will be transferred to a rehabilitation facility where you will be cared for until your appointment is scheduled. Continue the prednisone taper as follows: 20mg prednisone once daily x 2 days, 10mg prednisone once daily x2 days, and 5mg prednisone daily x 2 days. Then stop the prednisone. Pending Studies at Discharge: No Stand-Alone Forms: My [facility] Skilled Items Patient informed of condition?: Yes DNR: Yes Discharge Level of Care: Acute rehab Communicable Disease: No Discharge Prognosis: Stable Lines: None Urinary Catheter: No Medications and DC Order Prescriptions: Continued magnesium oxide 400 mg (241.3 mg magnesium) tablet 400 mg PO DAILY Qty: 30 RF: 3 pantoprazole 40 mg tablet,delayed release (DR/EC) 40 mg PO QAM Qty: 90 RF: 3 clopidogrel 75 mg tablet 75 mg PO QAM Qty: 90 RF: 3 amlodipine 5 mg tablet 5 mg PO QAM Qty: 90 RF: 3 atorvastatin 10 mg tablet 10 mg PO QAM Qty: 90 RF: 3 carvedilol 12.5 mg tablet 12.5 mg PO BID Qty: 90 RF: 3 lisinopril 10 mg tablet 5 mg PO QAM Qty: 45 RF: 3 levothyroxine 100 mcg tablet 100 mcg PO QAM Qty: 90 RF: 3 citalopram 40 mg tablet 40 mg PO QAM Qty: 90 RF: 1 oxybutynin chloride 5 mg tablet 5 mg PO BID Qty: 60 RF: 2 Spiriva with HandiHaler 18 mcg capsule, w/inhalation device 1 cap INH DAILY Qty: 30 RF: 2 cyanocobalamin (vitamin B-12) 500 mcg lozenge 500 mcg PO DAILY RF: 0 multivitamin tablet 1 tab PO DAILY RF: 0 nystatin 100,000 unit/gram powder 1 appln TOP BID Qty: 30 RF: 0 acetaminophen 325 mg Tablet 650 mg PO BID PRN (Reason: Pain) RF: 0 nitroglycerin [Nitrostat] 0.4 mg Tablet, Sublingual 0.4 mg Sublingual DIRECTED PRN (Reason: Chest Pain) RF: 0 cholecalciferol (vitamin D3) [Vitamin D3] 2,000 unit Capsule 2,000 unit PO QAM RF: 0 nitrofurantoin macrocrystal 50 mg capsule 50 mg PO HS RF: 0 trazodone 50 mg tablet 50 mg PO HS PRN (Reason: Insomnia) RF: 0 prednisone 20 mg tablet See Rx Instructions .ROUTE .COMPLEX RF: 0 diclofenac sodium 75 mg tablet,delayed release (DR/EC) 75 mg PO BID PRN (Reason: Pain) RF: 0 meclizine 12.5 mg tablet 12.5 mg PO Q8H PRN (Reason: Dizziness) RF: 0 sennosides-docusate sodium [Senokot-S] 8.6-50 mg Tablet 1 tab PO BID Qty: 1 RF: 0 Discharge Orders: Discharge Order (Routine); Ordered 06/20/20 Ordered By: Radha Parker Admission Data Admit Date/Time: 06/12/20 21:49 Attending Provider: Rabia Bardales Admit Provider: Tal Leigh Primary Care Provider: Jason Pike Other Providers: [facility] ; Anthony Price ; Tal Leigh ; Collins Gaxiola ; Derik Pena Other Interventions: Discharge Summary Assessment (RN) Last Done: 06/20/20 11:19 Supervising Physician Co-Signing Physician Notes Resident Physician Supervision Note: I independently interviewed and examined the patient and verified the sarabia history and physical, reviewed labs and image studies, discussed the case with the resident Dr. Ahumada and agree with the findings and care plan.
--- NOTE | 2020-06-24 11:04 | Coding Query ---
CODING QUERY To promote full compliance with coding requirements relating to patient care, provider participation is requested in all cases of invoice coder uncertainty. Please assist us with the question(s) below: Please clarify the meaning of ALBERTA. ALBERTA is not a valid abbreviation. Thank you. ( x ) Acute Kidney Injury ( ) Present on admission ( x ) Not present on admission ( ) Unable to determine ( ) Other, please specify ( ) Acute Kidney Insufficiency ( ) Present on admission ( ) Not present on admission ( ) Unable to determine ( ) Other, please specify ( ) Other (Specify):___. Principal Diagnosis: "that condition established after study, to be chiefly responsible for occasioning the admission of the patient to the hospital for care." Co-Existing Principal Diagnosis: "when two or more diagnoses equally meet the criteria for principal diagnosis as determined by the circumstances of admission, diagnostic work up, and/or therapy provided, and the Alphabetic Index, Tabular List, or another coding guideline does not provide sequencing direction, any one of the diagnoses may be sequenced first." "When the physician has documented what appears to be a current diagnosis in the body of the record, but has not included the diagnosis in the final diagnostic statement, the physician should be asked whether the diagnosis should be added." (Source Coding [facility] 2 QTR90. p3-4) JOSE
--- NOTE | 2020-06-24 11:05 | Coding Query ---
PRESENT ON ADMISSION QUERY To promote full compliance with coding requirements relating to pateint care, physician participation is requested in all cases of field merchandiser uncertainty. Please assist us with the question(s) below: Please place an X within the parenthesis (x). The following diagnosis(es) listed in this patient's medical record require physician assistance to determine if they were present on admission (POA) or not. Please advise for each diagnosis whether it was present on admission, not present on admission, or if it was clinically undetermined. 1. Acute UTI ( ) Present On Admission ( ) Not Present On Admission ( ) Clinically Undetermined ( x ) Ruled out 2. Acute diastolic congestive heart failure ( x) Present On Admission ( ) Not Present On Admission ( ) Clinically Undetermined Thank you Jaja Olivier *Definition of the present on admission (POA)-Present on admission is defined as present at the time the order for inpatient admission occurs. Conditions that develop during an outpatient encounter prior to a written order for inpatient admission (including emergency department, observation, or outpatient surgery) are considered present on admission. JOSE
== END 2020-06-20 14:11 | DRG 286 ==
LOC: ED 17:52 → 2S 21:49 → OBSVTOIN 21:49 → SUATTDRO 21:49 → INTOOBSV 21:49 → 2S 22:17 → 2W 06-17 19:44